=== PATIENT | male | born 1955 | race Caucasian/White ===

== ENCOUNTER → 2020-03-05 10:51 | Outpatient (CLI) | payer MEDICARE, SELFPAY | PROVIDERS: Visit Provider Internal Medicine Infectious Disease | DX: A40.1 Sepsis due to streptococcus, group B (principal); E11.42 Type 2 diabetes mellitus with diabetic polyneuropathy; Z95.0 Presence of cardiac pacemaker | CPT/HCPCS: 36415; 87040 ==

== ENCOUNTER → 2020-09-21 13:30 | Outpatient (CLI) | payer MEDICARE, SELFPAY ==
--- NOTE | 2020-09-21 | US_ITS ---
APPROVED REPORT Exam Type: Ankle to Brachial Index Distribution Collection Operator: RT Geovani(R) Indications Claudication: Bilaterally History of Smoking CAD Risk Factors Hypertension CAD Hyperlipidemia Obesity Cardiac Disease History of Smoking Pressures/Indices Right Indices Left Indices Brachial 145.00 mmHg Brachial 140.00 mmHg Low Thigh 145.00 mmHg 1.00 Low Thigh 148.00 mmHg 1.02 Calf 158.00 mmHg 1.09 Calf 161.00 mmHg 1.11 Ankle(PT) 163.00 mmHg 1.12 Ankle(PT) 161.00 mmHg 1.11 Ankle(DP) 151.00 mmHg 1.04 Ankle(DP) 156.00 mmHg 1.08 Digit 162.00 mmHg 1.12 Digit 147.00 mmHg 1.01 Findings RT RENEE=1.12 LT RENEE=1.11 RT TBI=1.12 LT TBI=1.01 Normal pulses Normal waveforms Normal appearing resting noninvasive lower extremity arterial study. Conclusion RT RENEE=1.12 LT RENEE=1.11 RT TBI=1.12 LT TBI=1.01 Normal pulses Normal waveforms Normal appearing resting noninvasive lower extremity arterial study. Electronically signed by : Paul Berrios MD 09/21/2020 16:59:26
== END ==
PROVIDERS: PCP Nurse Practitioner Family; Visit Provider Nurse Practitioner Family
DX: M79.661 Pain in right lower leg (principal); M79.662 Pain in left lower leg; R09.89 Other specified symptoms and signs involving the circulatory and respiratory systems
CPT/HCPCS: 93923

== ENCOUNTER 2021-09-05 12:48 | Emergency (ER) | payer OTHER, SELFPAY ==
[2021-09-05 12:48] VITALS: BP 125/87; PULSE 79; RESP 18; TEMP 36.6; O2SAT 98; BMI 31.1
--- NOTE | 2021-09-05 13:04 | PC.NURSE ---
ED MD at
--- NOTE | 2021-09-05 13:17 | CT_ITS ---
FINAL REPORT TECHNIQUE: Axial images through the abdomen and pelvis were performed without contrast. This study was performed with techniques to keep radiation doses as low as reasonably achievable, (ALARA). Individualized dose reduction techniques using automated exposure control or adjustment of mA and/or kV according to the patient's size were employed. CLINICAL HISTORY: Bl flank pain, difficulty urinating FINDINGS: Abdomen: There is scarring in the lung bases. The liver parenchyma is homogeneous. The gallbladder is absent. There are calcified granulomas in the spleen. There is nodularity of the adrenal glands. There are bilateral renal cysts measuring up to 3 cm on the left. The pancreas is unremarkable. Pelvis: The urinary bladder is contracted. The appendix is normal. There is no pelvic mass or inflammation. There are advanced hypertrophic changes of degenerative disc disease in the lower lumbar spine. IMPRESSION: Benign-appearing renal cysts. Reviewed, Interpreted and Dictated by Philip Britton MD Transcribed by David Levi Authenticated by Philip Britton MD on 09/05/2021 03:00:46 PM [facility]
--- NOTE | 2021-09-05 13:18 | XR_ITS ---
FINAL REPORT CLINICAL HISTORY: concern for CHF exacerbation COMPARISON: August 01, 2019 FINDINGS: The heart is mildly enlarged. There is a left subclavian pacemaker. The mediastinum is normal. There is scarring in the lung bases. There are no pleural effusions. There is no pneumothorax. There is no osseous abnormality. IMPRESSION: No acute cardiopulmonary process Reviewed, Interpreted and Dictated by Philip Britton MD Transcribed by David Levi Authenticated by Philip Britton MD on 09/05/2021 03:00:45 PM [facility]
--- NOTE | 2021-09-05 13:19 | HMH.EDGENADL ---
ED Disposition Clinical Impression: Hemorrhagic cystitis Disposition: Home, Self-Care Condition on Discharge: Good Prescriptions: Doxycycline Hyclate [Doxycycline 150mg Tablet] 100 mg PO BID 14 Days #28 tab Transmission Status: Pending to [facility] Phenazopyridine HCl [Pyridium 200mg Tablet] 200 mg PO TID 5 Days #15 tab Transmission Status: Pending to [facility] Referrals: Tod Negron MD [Primary Care Provider] - Shar Mena MD [Staff Physician] - - Critical Care Critical Care Time: No Attestation: On , the high probability of a clinically significant, sudden or life threatening deterioration of the following system(s) required my full and direct attention, intervention and personal management. The time I documented below is in addition to time spent performing reported procedures but includes the following listed in this critical care notation. Medical Decision Making - Medical Records Medical records reviewed: Yes: I reviewed the patient's medical records. - Los Inquiry Pt receiving controlled substance: No Vital Signs: 09/05/21 12:48 Temperature 97.8 F Temperature Source Oral Pulse Rate [Left Radial] 79 Respiratory Rate 18 Blood Pressure [Left Arm] 125/87 Blood Pressure Mean [Left Arm] 99 Blood Pressure Source [Left Arm] Automatic Cuff Blood Pressure Position [Left Arm] Sitting 02 Sat by Pulse Oximetry 98 Oxygen Delivery Method Room Air - Lab Data Lab Results 09/05/21 13:55: Urine Color Yellow, Urine Appearance Clear, Urine pH 6.0, Ur Specific Vale >= 1.030, Urine Protein 1+, Urine Glucose (UA) Negative, Urine Ketones Negative, Urine Blood 2+, Urine Nitrate Negative, Urine Bilirubin 1+ A, Urine Urobilinogen 0.2, Ur Leukocyte Esterase Negative, Urine RBC 10-20, Urine WBC 3-5, Ur Squamous Epith Cells 3-5, Urine Bacteria Trace 09/05/21 14:56: WBC 5.3, RBC 4.75, Hgb 10.0 L, Hct 34.2 L, MCV 72.0 L, MCH 21.1 L, MCHC 29.3 L, RDW 18.2 H, Plt Count 377, MPV 7.8, Neut % (Auto) 48.5, Lymph % (Auto) 35.2, [place] % (Auto) 11.5 H, Eos % (Auto) 3.8, Baso % (Auto) 0.9, Neut # (Auto) 2.6, Lymph # (Auto) 1.9, [place] # (Auto) 0.6, Eos # (Auto) 0.2, Baso # (Auto) 0.1 09/05/21 14:56: Sodium 138, Potassium 3.5, Chloride 104, Carbon Dioxide 27, Anion Gap 10.5, BUN 16, Creatinine 1.00, Estimated Creat Clear 109, Estimated GFR 75, Est GFR ( Amer) 91, Glucose 113 H, Calcium 7.9 L, Total Bilirubin 0.5, AST 43, ALT 30, Alkaline Phosphatase 99, Total Protein 7.5, Albumin 4.1, Globulin 3.4 H, Albumin/Globulin Ratio 1.2, Lipase 79 09/05/21 14:56: Lactate 1.0 09/05/21 14:56: PT 11.6, INR 1.03, APTT 30.2 09/05/21 14:56: NT-Pro-B Natriuret Pep 911 H Result diagrams: 09/05/21 14:56 09/05/21 14:56 Orders (Tests/Meds): ED MEDICATIONS Discontinued Medications Generic Name Dose Route Start Last Admin Trade Name Freq PRN Reason Stop Dose Admin Lactated Ringer's 1,000 mls @ 999 mls/hr 09/05/21 13:15 Lactated Ringer's 1000 Ml Bag IV 09/05/21 14:15 .[id number] [facility] - Radiology Data #1 Image(s): Chest Image Reviewed: Yes I reviewed the patient's radiology results, Yes I reviewed the patient's radiology image FINDINGS: The heart is mildly enlarged. There is a left subclavian pacemaker. The mediastinum is normal. There is scarring in the lung bases. There are no pleural effusions. There is no pneumothorax. There is no osseous abnormality. IMPRESSION: No acute cardiopulmonary process - CT Data CT Scan: Abdomen Time Received: 15:[address] Reviewed: Yes: I have reviewed the patient's CT results, I have viewed the radiologist's interpretation Findings Narrative: FINDINGS: Abdomen: There is scarring in the lung bases. The liver parenchyma is homogeneous. The gallbladder is absent. There are calcified granulomas in the spleen. There is nodularity of the adrenal glands. There are bilateral renal cysts measuring up to 3 cm on the left. The panc
[2021-09-05 13:58] LABS: Microscopic, Urine URINE MICROSCOPIC (MICROSCOPIC)
[2021-09-05 14:01] LABS: Appearance,Urine CLEAR (Clear); Blood, Urine 2+ (Negative); Color,Urine YELLOW (Yellow); Glucose,Urine (UA) Negative (Negative); Ketones,Urine Negative (Negative); Leukocyte Esterase,Urine Negative (Negative); Nitrate,Urine Negative (Negative); Protein,Urine 1+ (Negative); Specific Gravity, Urine >= 1.030 (1.005-1.030); Urobilinogen,Urine 0.2 EU/dl (0.2)
--- NOTE | 2021-09-05 14:04 | PC.NURSE ---
ED MD at for update on POC
[2021-09-05 14:10] LABS: Bilirubin,Urine 1+ (Negative)
[2021-09-05 14:19] LABS: Bacteria,Urine Trace /lpf
[2021-09-05 15:14] LABS: Basophils # 0.1 K/mm3 (0-0.2); Basophils % 0.9 % (0.1-2.0); Eosinophils # 0.2 K/mm3 (0.0-0.4); Eosinophils % 3.8 % (0.1-12.0); Hematocrit 34.2 % (42.0-52.0); Lymphocytes # 1.9 K/mm3 (0.7-4.5); Lymphocytes % 35.2 % (10-50); Mean Corpuscular HGB Conc 29.3 g/dL (31.8-35.4); Mean Corpuscular Hemoglobin 21.1 pg (27.0-31.2); Mean Platelet Volume 7.8 fl (7.4-10.4); Monocytes # 0.6 K/mm3 (0.1-1.0); Monocytes % 11.5 % (1.7-9.3); Neutrophils # 2.6 K/mm3 (1.8-7.8); Neutrophils % 48.5 % (37.0-80.0); Platelet Count 377 K/mm3 (142-424); Red Blood Count 4.75 M/mm3 (4.60-6.20); Red Cell Distribution Width 18.2 % (11.5-17.5); White Blood Count 5.3 K/mm3 (4.8-10.8)
[2021-09-05 15:23] LABS: Chloride 104 mmol/L (98-107); Potassium 3.5 mmoL/L (3.5-5.1); Sodium 138 mmol/L (136-145)
[2021-09-05 15:25] LABS: Alanine Aminotransferase 30 U/L (12-78); Alkaline Phosphatase 99 U/L (38-126); Aspartate Amino Transferase 43 U/L (17-59); Bilirubin,Total 0.5 mg/dl (0.2-1.3); Blood Urea Nitrogen 16 mg/dl (9-20); Creatinine Clearance Estimated 109 mL/min (50-200); Estimated Glomerular Filt Rate 75 ml/min (>60); GFR (African American) 91 ML/MIN (>60)
[2021-09-05 15:26] LABS: Albumin Level 4.1 g/dl (3.5-5.0); Albumin/Globulin Ratio 1.2 (1.1-1.8); Anion Gap 10.5 mEq/L (5-15); Calcium 7.9 mg/dl (8.4-10.2); Carbon Dioxide 27 mmol/L (22.0-30.0); Globulin 3.4 g/dL (1.3-3.2); Glucose 113 mg/dl (74-100); Lipase 79 U/L (23-300); Total Protein,Serum 7.5 g/dl (6.3-8.2)
[2021-09-05 15:29] LABS: Activated Partial Thrombo Time 30.2 seconds (22.8-30.6); INR 1.03 (0.9-1.1); Prothrombin Time 11.6 seconds (10.1-12.5)
[2021-09-05 15:35] LABS: NT Pro Brain Natriuretic Pep. 911 pg/mL (0-125)
--- NOTE | 2021-09-05 16:30 | PC.NURSE ---
ED MD at for update on POC
--- NOTE | 2021-09-05 16:58 | PC.NURSE ---
Paged Dr. Mena
--- NOTE | 2021-09-05 16:59 | PC.NURSE ---
NELLY EID on phone with Dr. Mena
[2021-09-05 17:42] VITALS: BP 121/80; PULSE 74; RESP 17; TEMP 36.6; O2SAT 99
== END 2021-09-05 17:43 | disposition home or self-care (01) ==
PROVIDERS: Emergency Provider Emergency Medicine; PCP Family Medicine
DX: N30.01 Acute cystitis with hematuria (principal); I13.0 Hypertensive heart and chronic kidney disease with heart failure and stage 1 through stage 4 chronic kidney disease, or unspecified chronic kidney disease; I50.9 Heart failure, unspecified; N18.9 Chronic kidney disease, unspecified; I48.91 Unspecified atrial fibrillation; E11.9 Type 2 diabetes mellitus without complications; M54.50 Low back pain, unspecified; N28.1 Cyst of kidney, acquired; J44.9 Chronic obstructive pulmonary disease, unspecified; Z79.01 Long term (current) use of anticoagulants; Z79.899 Other long term (current) drug therapy; Z88.0 Allergy status to penicillin; Z88.2 Allergy status to sulfonamides; Z88.6 Allergy status to analgesic agent; Z95.5 Presence of coronary angioplasty implant and graft; Z95.0 Presence of cardiac pacemaker; Z87.891 Personal history of nicotine dependence; Z82.49 Family history of ischemic heart disease and other diseases of the circulatory system; Z83.3 Family history of diabetes mellitus; Z83.438 Family history of other disorder of lipoprotein metabolism and other lipidemia; Z82.5 Family history of asthma and other chronic lower respiratory diseases
CPT/HCPCS: 71045; 74176; 80053; 81001; 83605; 83690; 83880; 85025; 85610; 85730; 96361; 96365; 99285

== ENCOUNTER 2021-09-06 16:33 | Emergency (ER) | payer OTHER, SELFPAY ==
[2021-09-06 16:34] VITALS: BP 120/70; PULSE 79; RESP 16; TEMP 36.4; O2SAT 98; BMI 31.1
[2021-09-06 17:13] LABS: Microscopic, Urine URINE MICROSCOPIC (MICROSCOPIC)
[2021-09-06 17:19] LABS: Basophils # 0.1 K/mm3 (0-0.2); Basophils % 0.8 % (0.1-2.0); Eosinophils # 0.2 K/mm3 (0.0-0.4); Eosinophils % 2.6 % (0.1-12.0); Hematocrit 33.1 % (42.0-52.0); Hemoglobin 9.8 g/dL (14.1-18.0); Lymphocytes # 2.1 K/mm3 (0.7-4.5); Lymphocytes % 23.2 % (10-50); Mean Corpuscular HGB Conc 29.6 g/dL (31.8-35.4); Mean Corpuscular Hemoglobin 21.6 pg (27.0-31.2); Mean Corpuscular Volume 72.9 fl (80-94); Mean Platelet Volume 10.6 fl (7.4-10.4); Monocytes # 0.8 K/mm3 (0.1-1.0); Monocytes % 8.7 % (1.7-9.3); Neutrophils % 64.8 % (37.0-80.0); Platelet Count 430 K/mm3 (142-424); Red Blood Count 4.55 M/mm3 (4.60-6.20); Red Cell Distribution Width 18.4 % (11.5-17.5); White Blood Count 9.2 K/mm3 (4.8-10.8)
[2021-09-06 17:27] LABS: Alanine Aminotransferase 33 U/L (12-78); Albumin Level 4.3 g/dl (3.5-5.0); Albumin/Globulin Ratio 1.3 (1.1-1.8); Alkaline Phosphatase 104 U/L (38-126); Anion Gap 14.7 mEq/L (5-15); Aspartate Amino Transferase 41 U/L (17-59); Bilirubin,Total 0.5 mg/dl (0.2-1.3); Blood Urea Nitrogen 17 mg/dl (9-20); Calcium 8.5 mg/dl (8.4-10.2); Carbon Dioxide 23 mmol/L (22.0-30.0); Chloride 104 mmol/L (98-107); Creatinine Clearance Estimated 91 mL/min (50-200); Estimated Glomerular Filt Rate 61 ml/min (>60); GFR (African American) 74 ML/MIN (>60); Globulin 3.4 g/dL (1.3-3.2); Glucose 112 mg/dl (74-100); Potassium 3.7 mmoL/L (3.5-5.1); Sodium 138 mmol/L (136-145); Total Protein,Serum 7.7 g/dl (6.3-8.2)
[2021-09-06 17:30] VITALS: BP 124/76; PULSE 80; RESP 17; O2SAT 98
[2021-09-06 17:30] LABS: Appearance,Urine SL CLOUDY (Clear); Blood, Urine 2+ (Negative); Color,Urine RED (Yellow); Glucose,Urine (UA) 1+ (Negative); Ketones,Urine TRACE (Negative); Leukocyte Esterase,Urine Negative (Negative); Nitrate,Urine POSITIVE (Negative); Protein,Urine 2+ (Negative); Urobilinogen,Urine >=8.0 EU/dl (0.2)
[2021-09-06 17:35] LABS: Bilirubin,Urine 2+ (Negative)
--- NOTE | 2021-09-06 17:40 | HMH.EDGENADL ---
ED Disposition Clinical Impression: Enteritis, Urinary urgency Disposition: Home, Self-Care Condition on Discharge: Good Additional Instructions: Collect a diarrhea sample using the provided supplies and return it along with the order form to ER registration at [facility] for testing. Obtain the results of this test from your primary care provider the next day. Continue taking Pyridium as prescribed. Tylenol with codeine as needed for pain. Follow-up with Dr. Mena in his office, call for appointment. Follow-up with Dr. Negron, call for appointment. Additional instructions for CONTROLLED SUBSTANCES: You have been prescribed a medication that is a controlled substance. Controlled substances include pain medications known as opiates and sedative nerve medications known as benzodiazepines. Tramadol, fioricet, and gabapentin are also controlled substances. Some common opiates include: Codeine (such as Tylenol #3) Hydrocodone (Vicodin, Lortab, Lorcet, Cowiche) Oxycodone (Percocet, Percodan, Oxycodone, Oxy IR) Some common benzodiazepines include: Diazepam (Valium) Lorazepam (Ativan) Alprazolam (Xanax) Clonazepam (Klonopin) Oxazepam (Serax) All of these controlled substances are highly addictive and frequently abused. Misuse can and frequently does lead to addiction as well as overdose and . Medication should be stored in a locked cabinet or other secure storage unit. Do not store the medication in a motor vehicle. Short term supplies, 3 days or less, are prescribed because of the highly addictive nature of the medication. Any of the controlled substance medication NOT taken should be disposed of properly and NOT SAVED. The recommended method of disposing of unused medications is: Place the medicines in a sealable plastic bag. If the medicine is a solid, crush it or add water to dissolve it. Add something undesirable (cat litter, coffee grounds, etc.) Dispose of sealed bag in household trash Do not flush or pour unused medicines down a sink or drain. Controlled substances should not be shared, given away or sold. Because of the addictive nature and frequent abuse, these medications are sometimes stolen. These medications should be kept in a safe place where they cannot be stolen. Do not keep them in your car or purse. Lost or stolen prescriptions for controlled substances WILL NOT BE REFILLED in this emergency department, regardless of whether a police report was filed. Prescriptions: Hydrocod/Acet 5/325 mg [Cow[place] 5/325mg tablet] 1 tab PO Q6HP PRN #10 tab PRN Reason: Pain Transmission Status: Received by [id number] Referrals: Tod Negron MD [Primary Care Provider] - Shar Mena MD [Staff Physician] - - Critical Care Critical Care Time: No Attestation: On 09/06/21, the high probability of a clinically significant, sudden or life threatening deterioration of the following system(s) required my full and direct attention, intervention and personal management. The time I documented below is in addition to time spent performing reported procedures but includes the following listed in this critical care notation. Medical Decision Making - Medical Records Medical records reviewed: Yes: I reviewed the patient's medical records. MR Comment: Reviewed emergency department note from yesterday and labs, CT report. - Los Inquiry Pt receiving controlled substance: Yes Los was queried for this patient: Yes Risks and benefits of using a controlled substance: were discussed with pt by me Vital Signs: 09/06/21 16:34 09/06/21 17:30 09/06/21 18:33 Temperature 97.6 F 98 F Temperature Source Oral Oral Pulse Rate 80 78 Pulse Rate [Radial] 79 Respiratory Rate 16 17 18 Blood Pressure 124/76 135/78 Blood Pressure [Right Radial Artery] 120/70 Blood Pressure Mean [Right Radial Artery] 86 Blood Pressure Position Sitting Blood Pressure Position [Right Radial Artery] S
[2021-09-06 17:46] LABS: Bacteria,Urine Trace /lpf; Squamous Epithelial Cell,Urine Occasional #/hpf (0-5); WBC,Urine Occasional #/hpf (0-3)
[2021-09-06 18:33] VITALS: BP 135/78; PULSE 78; RESP 18; TEMP 36.6; O2SAT 98
[2021-09-06 18:34] VITALS: BP 121/81; PULSE 68; RESP 17; O2SAT 98
== END 2021-09-06 18:51 | disposition home or self-care (01) ==
PROVIDERS: Emergency Provider Emergency Medicine; PCP Family Medicine
DX: K52.9 Noninfective gastroenteritis and colitis, unspecified (principal); I10 Essential (primary) hypertension; J44.9 Chronic obstructive pulmonary disease, unspecified; Z88.0 Allergy status to penicillin; Z88.2 Allergy status to sulfonamides; E11.9 Type 2 diabetes mellitus without complications; Z79.899 Other long term (current) drug therapy
CPT/HCPCS: 80053; 81001; 85025; 87086; 96360; 96365; 96375; 99284

== ENCOUNTER → 2021-09-24 11:54 | Outpatient (CLI) | payer MEDICARE, SELFPAY ==
[2021-09-24 13:56] LABS: Prostate Specific Ag Screen 0.4 ng/ml (0.0-4.0)
== END ==
PROVIDERS: PCP Family Medicine; Visit Provider Urology
DX: Z12.5 Encounter for screening for malignant neoplasm of prostate (principal)
CPT/HCPCS: 36415; G0103

== ENCOUNTER → 2021-10-22 09:11 | Outpatient (POV) | payer MEDICARE, SELFPAY | PROVIDERS: Visit Provider Dermatology | DX: Z00.00 Encounter for general adult medical examination without abnormal findings (principal) ==

== ENCOUNTER → 2021-10-31 09:00 | Outpatient (CLI) | payer MEDICARE, SELFPAY ==
--- NOTE | 2021-10-31 09:04 | US_ITS ---
FINAL REPORT TECHNIQUE: Limited sonographic imaging of the abdominal aorta was obtained. CLINICAL HISTORY: H/O NICOTINE DEPENDENCE-- obesity had recent ct abd FINDINGS: The abdominal aorta at measures up to 1.8 cm in diameter. IMPRESSION: Abdominal aorta measuring up to 1.8 cm in diameter. Reviewed, Interpreted and Dictated by Konrad Yi III, MD Transcribed by Bree Franz Authenticated by Konrad Yi III, MD on 10/31/2021 10:58:33 AM [facility]
== END ==
LOC: RAD 09:00
PROVIDERS: PCP Nurse Practitioner Family; Visit Provider Internal Medicine Adolescent Medicine
DX: I71.4 Abdominal aortic aneurysm, without rupture (principal); Z87.891 Personal history of nicotine dependence
CPT/HCPCS: 76705

== ENCOUNTER → 2021-11-27 12:25 | Outpatient (CLI) | payer MEDICARE, SELFPAY | PROVIDERS: PCP Internal Medicine Adolescent Medicine; Visit Provider Surgery | DX: Z01.812 Encounter for preprocedural laboratory examination (principal); Z20.822 Contact with and (suspected) exposure to COVID-19; Z13.810 Encounter for screening for upper gastrointestinal disorder; Z12.11 Encounter for screening for malignant neoplasm of colon | CPT/HCPCS: C9803; U0003; U0005 ==

== ENCOUNTER 2021-11-29 07:21 | Day surgery (SDC) | payer MEDICARE, SELFPAY ==
[2021-11-26 15:06] VITALS: BMI 46.0
[2021-11-29] VITALS (8 sets, daily range): BP systolic 97–136; BP diastolic 64–85; PULSE 76–86; RESP 16–18; TEMP 36.6; O2SAT 95–100
[2021-11-29 07:58] LABS: POC Glucose,Bedside 154 (70-110)
--- NOTE | 2021-11-29 08:28 | HMH.ANESCL ---
[facility] Anesthesia Checklist - Patient Identification Patient Identification: Arm Band - Structural Data Admitted From: Home Planned Operative Procedure/s: EGD/Colonoscopy Consent for Planned Operative Procedure(s) Verified: Yes - NPO Status Verified Time NPO: 01:00 (Prep) - Airway Assessment C-Spine Mobility Assessed: Yes TMJ Mobility Assessed: Yes Dentition: Poor Dentition - Neurological Assessment Level of Consciousness: Awake Hx Seizures: No Numbness or tingling in extremities: No - Anesthesia Plan Anesthesia Risk discussed: Yes Anesthesia Plan: Verified (Explained increased risk (including intubation, difficulty weaning off ventilator, )to patient. Patient agrees to proceed.) ASA Class: IV Anesthesia Type: MAC [facility] History I have reviewed the patient's past medical history: Yes Medical History: Reports:: Asthma, BPH, Chronic Obstructive Pulmonary Disease (COPD), Diabetes Mellitus Type 2, Hyperlipidemia, Hypertension, Internal Pacemaker, Valvular Heart Disease Denies:: Cancer, Diabetes Mellitus Type 1, MRSA, Seizures *Have you ever received a pneumonia vaccine?: No *Have you received a flu vaccine this season?: No Other Medical History: Reports: Arthritis, Sinus Problems (Sinus infection) Anesthesia experience/problems:: None Other Surgeries: Yes: No Previous Surgery, Angioplasty, Cardiac Catheterization, Cholecystectomy, Colonoscopy, Coronary Stent, Hernia Repair, Pacemaker, Other Amputation: No Fractures: No - *Social History Last grade of school completed: High school graduate Smoking Status: Former smoker Alcohol Intake: never Substance Use Type: denies use *Occupational Status:: retired Housing: house *Travel in the last 8 weeks: None Family Hx:: Diabetes, Hypertension, Hyperlipidemia, Asthma, Heart Attack
--- NOTE | 2021-11-29 08:38 | XR_ITS ---
FINAL REPORT CLINICAL HISTORY: preop for colonoscopy, non smoker COMPARISON: September 05, 2021 FINDINGS: A single portable view of the chest was obtained. A left subclavian pacemaker is present. There is cardiomegaly. The mediastinum is within normal limits. No acute pulmonary abnormality is identified. The bony thorax is intact. IMPRESSION: No active cardiopulmonary disease. Reviewed, Interpreted and Dictated by Konrad Yi III, MD Transcribed by Lizette Donohue Authenticated and [facility]
--- NOTE | 2021-11-29 10:20 | HMH.SCOPE ---
- Procedure: Date: 11/29/21 Patient Date of :: 1955 Procedure Performed:: EGD with biopsy Total colonoscopy to terminal ileum with polypectomy Indications:: Patient is a 66-year-old male with history of of diabetes, COPD, coronary artery disease with previous myocardial infarction, reported cardiomyopathy on Eliquis. BMI of 46. He has a history of coronary artery disease and had a couple of myocardial infarctions in 2003. He states that he has 13 stents and has had a couple of angioplasties. He has a transvenous pacemaker. Apparently he has on routine blood work found to have iron deficiency anemia. He states I have always had a nervous stomach . He was diagnosed with ulcers in the and was on Tagamet. It sounds as though he did undergo an EGD at that time. He states he has had a previous colonoscopy. He states that he believes he had [address] Colbert years ago. I saw no record of this but he did do an EGD in 2010 at which time he had a small hiatal hernia. He states that he had a colonoscopy about [address] Esteban Camejo at [facility], [place]. He denies any obvious bleeding other than occasional blood in his sinuses . He has had occasional black stool but does occasionally take Pepto-Bismol. Performing Provider:: Konrad Brannon MD Referring Provider:: Tod Barraza MD Sedation:: MAC sedation Procedure:: Patient was taken to endoscopy procedure room. He was positioned in lateral decubitus position. Adequate anesthesia sedation was achieved with titration propofol. Attention was first turned to upper endoscopy. Olympus endoscope was inserted via the oropharynx. Esophagus was cannulated. Overall esophagus appeared normal. Gastroesophageal junction was encountered at approximately 46 cm from the incisors. Stomach was cannulated and insufflated. There was some minor to moderate gastropathy and nonerosive gastritis. Gastric antral mucosal biopsy was obtained for CLOtest for H. pylori. Retroflexion revealed no evidence of any appreciable hiatal hernia. There was a probable fundic gland polyp in the proximal fundus which was ultimately biopsied using cold biopsy forceps. Pylorus was traversed. Duodenum appeared unremarkable. Gastric biopsy was obtained for histopathologic analysis. Using retroflexion biopsy was obtained of the presumed fundic gland polyp. Biopsy was obtained of the gastroesophageal junction. Overall no obvious etiology on upper endoscopy for iron deficiency anemia. Extension was turned to colonoscopy. Variable stiffness Olympus colonoscope was inserted via the anus. He did have some redundancy of the sigmoid colon. Ultimately colonoscope was advanced to the cecum. Ileocecal valve and appendiceal orifice were clearly identified. Colonoscope was advanced a short distance into the terminal ileum which appeared grossly normal. Colonoscope was slowly withdrawn through the colon with careful surveillance. There was a small polyp at the splenic flexure removed with cold cutting snare. Due to minor submucosal hematoma couple of hemoclips were deployed particularly with his anticoagulation status. In the descending colon there was a small polyp removed with cold snare. Once again Hemoclip was deployed. There was some sigmoid diverticulosis. Sigmoid colon there was a tiny polyp removed with cold snare. This seemed to be lodged within the colonoscope and was initially unable to be retrieved. Colonoscope scope was repeatedly reinserted and withdrawn to ensure that it was not within the colon. It was not seen. Retroflexion within the rectum revealed no evidence of any pathologic internal hemorrhoids. Colonoscope was withdrawn. Overall there is no etiology to explain iron deficiency anemia on colonoscopy. Findings:: Gastroesophageal junction at 46 cm Mild to moderate nonerosive gastropathy with gastritis Presumed fundic gland polyp Tiny splenic flexure polyp Descending colon dexter
== END 2021-11-29 11:25 | disposition home or self-care (01) ==
PROVIDERS: PCP Internal Medicine Adolescent Medicine; Visit Provider Surgery
PROC: 0DJ08ZZ Inspection of Upper Intestinal Tract, Via Natural or Artificial Opening Endoscopic (ICD-10-PCS; CPT 43235; principal; 2021-11-29 08:30)
DX: D50.9 Iron deficiency anemia, unspecified (principal); E11.9 Type 2 diabetes mellitus without complications; J44.9 Chronic obstructive pulmonary disease, unspecified; E78.5 Hyperlipidemia, unspecified; I10 Essential (primary) hypertension; Z95.0 Presence of cardiac pacemaker; Z88.0 Allergy status to penicillin; Z79.84 Long term (current) use of oral hypoglycemic drugs
CPT/HCPCS: 43239; 45385; 71045; 82962; 87339; 88305; J2704

== ENCOUNTER 2022-08-06 08:00 | Outpatient (RCR) | payer MEDICARE, SELFPAY ==
--- NOTE | 2022-07-28 09:01 | HMH.PTOPWND ---
Rehab Outpt Wound Evaluation Rehab OP Wound Evaluation Start: 07/28/22 07:59 Freq: Status: Active Protocol: Document 07/28/22 08:45 ARABELLA (Rec: 07/28/22 09:01 PHORLIBERTY [id number]) E-signed By Johnathan Mejia, PT Subjective/History History History This is the initial PT eval for Myron Siddiqui 67 yowm who presents with c/o B LE edema and significant pain, worse at night, from knees distally. He reports pain is worse in R LE than L and often prevents him from sleeping. He reports walking and moving help to decrease his pain. He presents this am with significant palpation tenderness in B LE gaiter areas and minimally pitting edema. He has hx of DM -II with peripheral neuropathy , [place], CAD with 13 stents, pacemaker, COPD. Prior RENEE performed 09/21/20 shows R RENEE = 1.12 and TBI= 1.12, L RENEE= 1 .11 and TBI= 1.01. Subjective Subjective He reports current pain 0/10, at worst 10/10 (usually at night). He presents with 1+ pitting edema to B ankle area this am, 3/4 TTP noted to B gaiter areas. Significant decrease in sensation with 10g monofilament testing to B LE from mid-calf distally. Lymphedema Eval Classification of Lymphedema Secondary Lymphedema Yes Stemmer's sign Stemmer's Sign no Skin Changes Dry Skin Yes Taut, Shiny Skin Yes Redness Yes Brittle Uneven Nails Yes Discoloration of Skin Yes Other Changes Yes Pain Scale Pain Scale (0-10) 10 Affected Extremities Areas Affected by Lymphedema/Edema Right Lower Extremity,Left Lower Extremity Manual Lymphatic Drainage Treatment Area MLD Treatment Area Right Lower Extremity,Left Lower Extremity Wound Problems/Impairments Impairments Problems/Impairmments Palpation Tenderness,Impaired Endurance,Impaired Sitting, Impaired Recreational
== END 2022-08-06 08:05 | disposition home or self-care (01) ==
LOC: PT 08:00
PROVIDERS: PCP Internal Medicine Adolescent Medicine; Visit Provider Internal Medicine Adolescent Medicine
DX: I89.0 Lymphedema, not elsewhere classified (principal); R60.0 Localized edema
CPT/HCPCS: 97163

== ENCOUNTER → 2023-04-23 16:31 | Outpatient (CLI) | payer MEDICARE, SELFPAY | PROVIDERS: PCP Internal Medicine Adolescent Medicine; Visit Provider Nurse Practitioner Family | DX: S91.109A Unspecified open wound of unspecified toe(s) without damage to nail, initial encounter (principal); B96.89 Other specified bacterial agents as the cause of diseases classified elsewhere | CPT/HCPCS: 87070; 87205 ==

== ENCOUNTER 2023-05-13 19:50 | Emergency (ER) | payer MEDICARE, SELFPAY ==
[2023-05-13 19:50] VITALS: BP 167/89; PULSE 78; RESP 16; TEMP 36.7; O2SAT 95; BMI 44.4
--- NOTE | 2023-05-13 20:00 | CT_ITS ---
PROCEDURE INFORMATION: Exam: CTA Neck With Contrast Exam date and time: 05/13/2023 8:43 PM Age: 68 years old Clinical indication: Pain; Headache; Additional info: New L headache and neck pain TECHNIQUE: Imaging protocol: Computed tomographic angiography of the neck with contrast. Exam focused on the cervical segments of the vasculature. 3D rendering (Not supervised by radiologist): MIP and/or 3D reconstructed images were created by the technologist. Radiation optimization: All CT scans at this facility use at least one of these dose optimization techniques: automated exposure control; mA and/or kV adjustment per patient size (includes targeted exams where dose is matched to clinical indication); or iterative reconstruction. Contrast material: ISOVUE; Contrast volume: 100 ml; Contrast route: INTRAVENOUS (IV); REPORTING DATA: Count of CT and Cardiac NM exams in prior 12 months: This patient has received 0 known CTs and 0 known cardiac nuclear medicine studies in the 12 months prior to the current study. COMPARISON: CT ANGIO HEAD 05/13/2023 8:43 PM FINDINGS: Right common carotid artery: No stenosis. No dissection or occlusion. Right internal carotid artery: Calcified atheromatous changes causing 30% stenosis. No dissection or occlusion. Right external carotid artery: No occlusion or stenosis of the origin. Left common carotid artery: No stenosis. No dissection or occlusion. Left internal carotid artery: Calcified atheromatous changes causing 40% stenosis. No dissection or occlusion. Left external carotid artery: No occlusion or stenosis of the origin. Right vertebral artery: Congenitally hypoplastic. No stenosis. No dissection or occlusion. Left vertebral artery: No stenosis. No dissection or occlusion. Soft tissues: Normal. No significant soft tissue swelling. Bones/joints: No acute fracture. IMPRESSION: Calcified atheromatous changes at the carotid bifurcations causing mild stenosis bilaterally. REFERENCES: NASCET CRITERIA. The degree of stenosis in the cervical segment of the internal carotid artery is based on NASCET criteria. Normal is no stenosis. Mild is less than 50% stenosis. Moderate is 50-69% stenosis. Severe is 70% to 99% stenosis. Total occlusion is no detectable patent lumen.
--- NOTE | 2023-05-13 20:00 | CT_ITS ---
PROCEDURE INFORMATION: Exam: CT Head Without Contrast Exam date and time: 05/13/2023 8:43 PM Age: 68 years old Clinical indication: Pain; Headache; Additional info: New L headache and neck pain TECHNIQUE: Imaging protocol: Computed tomography of the head without contrast. Radiation optimization: All CT scans at this facility use at least one of these dose optimization techniques: automated exposure control; mA and/or kV adjustment per patient size (includes targeted exams where dose is matched to clinical indication); or iterative reconstruction. REPORTING DATA: Count of CT and Cardiac NM exams in prior 12 months: This patient has received 0 known CTs and 0 known cardiac nuclear medicine studies in the 12 months prior to the current study. COMPARISON: No relevant prior studies available. FINDINGS: Brain: Mild atrophy. No intracranial hemorrhage. No mass. No definite edema. Cerebral ventricles: No hydrocephalus. Paranasal sinuses: No acute sinusitis. Mastoid air cells: No significant effusion. Orbital cavities: Unremarkable as visualized. Bones/joints: No acute fracture. Soft tissues: Unremarkable. IMPRESSION: No definite acute intracranial abnormality. If symptoms persist, consider MRI.
--- NOTE | 2023-05-13 20:00 | CT_ITS ---
PROCEDURE INFORMATION: Exam: CTA Head With Contrast, Arteriography Exam date and time: 05/13/2023 8:43 PM Age: 68 years old Clinical indication: Pain; Headache; Additional info: New L headache and neck pain TECHNIQUE: Imaging protocol: Computed tomographic angiography of the head with contrast. Exam focused on the arteries. 3D rendering (Not supervised by radiologist): MIP and/or 3D reconstructed images were created by the technologist. Radiation optimization: All CT scans at this facility use at least one of these dose optimization techniques: automated exposure control; mA and/or kV adjustment per patient size (includes targeted exams where dose is matched to clinical indication); or iterative reconstruction. Contrast material: ISOVUE; Contrast volume: 100 ml; Contrast route: INTRAVENOUS (IV); REPORTING DATA: Count of CT and Cardiac NM exams in prior 12 months: This patient has received 0 known CTs and 0 known cardiac nuclear medicine studies in the 12 months prior to the current study. COMPARISON: CT HEAD/BRAIN WO CON 05/13/2023 8:43 PM FINDINGS: ANTERIOR CIRCULATION: Right internal carotid artery: Intracranial segment is patent with no significant stenosis. No aneurysm. Right middle cerebral artery: No occlusion or significant stenosis. No aneurysm. Right anterior cerebral artery: No occlusion or significant stenosis. No aneurysm. Left internal carotid artery: Intracranial segment is patent with no significant stenosis. No aneurysm. Left middle cerebral artery: No occlusion or significant stenosis. No aneurysm. Left anterior cerebral artery: No occlusion or significant stenosis. No aneurysm. POSTERIOR CIRCULATION: Right vertebral artery: Congenitally hypoplastic. No occlusion or significant stenosis. No aneurysm. Left vertebral artery: No occlusion or significant stenosis. No aneurysm. Basilar artery: No occlusion or significant stenosis. No aneurysm. Right posterior cerebral artery: No occlusion or significant stenosis. No aneurysm. Left posterior cerebral artery: No occlusion or significant stenosis. No aneurysm. Brain: No definite mass, mass effect, or midline shift. Cerebral ventricles: No ventriculomegaly. Bones/joints: Unremarkable. No acute fracture. Soft tissues: Unremarkable. IMPRESSION: No large vessel stenosis or occlusion.
--- NOTE | 2023-05-13 20:03 | HMH.EDGENADL ---
Discharge Plan Disposition Patient Disposition: Home, Self-Care Prescriptions Prescriptions: New prednisone 20 mg tablet 60 mg PO DAILY 7 Days Qty: 21 0RF No Action furosemide 80 mg tablet 80 mg PO DAILY azelastine 137 mcg (0.1 %) aerosol,spray 2 spray NS DAILY Qty: 30 3RF Rx Instructions: administer into each nostril fluticasone propionate [Flonase Allergy Relief] 50 mcg/actuation spray,suspension 2 spray NS DAILY Qty: 16 3RF Rx Instructions: administer into each nostril fluocinolone acetonide oil [DermOtic Oil] 0.01 % drops 5 drp OT BID 10 Days Qty: 20 0RF lisinopril 20 mg tablet PO amlodipine 10 mg tablet PO triamcinolone acetonide 0.1 % ointment topical nitroglycerin 0.4 mg tablet, sublingual buccal ciclopirox 8 % solution 1 applic TP DAILY 90 Days Qty: 6.6 3RF Rx Instructions: apply over previous coat; remove with alcohol every 7 days and file down nail Eliquis 5 mg tablet 10 mg PO BID gabapentin 300 mg capsule 300 mg PO DAILY metformin 500 MG tablet 500 mg PO BID amlodipine 5 MG tablet 5 mg PO DAILY omeprazole 40 MG capsule,delayed release(DR/EC) 40 mg PO DAILY isosorbide dinitrate 30 MG tablet 60 mg PO BID metoprolol succinate 50 MG tablet 50 mg PO BID montelukast 10 MG tablet 10 mg PO PM PRN (Reason: ALLERGIES) mometasone-formoterol 13 GM HFA aerosol inhaler 2 puffs IH BID pravastatin 40 MG tablet 40 mg PO Referrals Follow up/Referrals: Tod Barraza MD [Primary Care Provider] - See instructions Activity Restrictions/Add. Instructions Additional Instructions/Restrictions: At this time is felt you are safe to be discharged home. If new or worsening symptoms please do not hesitate to return the emergency department. Please take your medications as prescribed and call Dr. Kovacs's office tomorrow to schedule follow-up in 1 week for continued evaluation. Clinical Impressions Clinical Impression: Headache, Elevated erythrocyte sedimentation rate Discharge ED Provider: Miguel Dawknis General Adult HPI General Chief complaint: Headache Stated complaint: Weakness Time Seen by Provider: 05/13/23 19:53 Mode of Arrival: Ambulatory Source of Information: Patient Limitations: No Limitations Description of Symptoms (Recalled from ER Triage Doc. by RN): Patient reports left sided headache that has been ongoing for 1 month. Patient reports that he has radiating pain to left arm, blurry vision and jaw pain with the headache as well. Up until today he has been able to treat the headache with tylenol and get relief. Today he had a dose of tylenol, unknown dose, at 6pm and his pain remains 10/10. History of Present Illness HPI narrative: Patient is a 68-year-old male with past medical history of [id number] diabetes, pacemaker placement on anticoagulation who presents emergency department for evaluation of headache. Onset was subacute, over the last 4 weeks, severe, left-sided, intermittent pain radiating down the left neck and left arm with associated intermittent blurry vision and jaw pain associated with the headache. No other acute complaints at this time. Related Data Home Medications Medication Instructions Recorded Confirmed amlodipine 5 mg tablet 5 mg PO DAILY High blood pressure 08/01/19 04/23/23 isosorbide dinitrate 30 mg tablet 60 mg PO BID . 08/01/19 04/23/23 metformin 500 mg tablet 500 mg PO BID Diabetes 08/01/19 04/23/23 metoprolol succinate 50 mg 50 mg PO BID High blood pressure 08/01/19 04/23/23 tablet,extended release 24 hr mometasone-formoterol HFA 200 2 puffs inhalation BID Asthma 08/01/19 04/23/23 mcg-5 mcg/actuation aerosol inhaler montelukast 10 mg tablet 10 mg PO PM PRN ALLERGIES 08/01/19 04/23/23 omeprazole 40 mg capsule,delayed 40 mg PO DAILY GERD 08/01/19 04/23/23 release pravastatin 40 mg tablet 40 mg
[2023-05-13 20:13] VITALS: BP 140/85; PULSE 72; RESP 18; O2SAT 95
[2023-05-13 20:18] LABS: Basophils # 0.1 K/mm3 (0-0.2); Basophils % 0.5 % (0.1-2.0); Eosinophils # 0.2 K/mm3 (0.0-0.4); Eosinophils % 1.9 % (0.1-12.0); Hematocrit 43.8 % (42.0-52.0); Hemoglobin 14.7 g/dL (14.1-18.0); Lymphocytes # 2.8 K/mm3 (0.7-4.5); Lymphocytes % 26.3 % (10-50); Mean Corpuscular HGB Conc 33.6 g/dL (31.8-35.4); Mean Corpuscular Hemoglobin 28.4 pg (27.0-31.2); Mean Corpuscular Volume 84.5 fl (80-94); Mean Platelet Volume 7.8 fl (7.4-10.4); Monocytes # 0.8 K/mm3 (0.1-1.0); Monocytes % 7.5 % (1.7-9.3); Neutrophils # 6.7 K/mm3 (1.8-7.8); Neutrophils % 63.8 % (37.0-80.0); Platelet Count 283 K/mm3 (142-424); Red Blood Count 5.18 M/mm3 (4.60-6.20); Red Cell Distribution Width 17.3 % (11.5-17.5); White Blood Count 10.5 K/mm3 (4.8-10.8)
[2023-05-13 20:29] LABS: Chloride 100 mmol/L (98-107); Potassium 3.5 mmoL/L (3.5-5.1); Sodium 139 mmol/L (136-145)
[2023-05-13 20:31] VITALS: BP 153/80; PULSE 75; RESP 17; O2SAT 96
[2023-05-13 20:31] LABS: Alanine Aminotransferase 33 U/L (12-78); Aspartate Amino Transferase 36 U/L (17-59); Blood Urea Nitrogen 16 mg/dl (9-20); Creatinine Clearance Estimated 79 mL/min (50-200); Estimated Glomerular Filt Rate 75 ml/min (>60); GFR (African American) 90 ML/MIN (>60)
[2023-05-13 20:32] LABS: Albumin Level 4.4 g/dl (3.5-5.0); Albumin/Globulin Ratio 1.2 (1.1-1.8); Alkaline Phosphatase 121 U/L (38-126); Anion Gap 11.5 mEq/L (5-15); Bilirubin,Total 0.4 mg/dl (0.2-1.3); Carbon Dioxide 31 mmol/L (22.0-30.0); Globulin 3.7 g/dL (1.3-3.2); Glucose 146 mg/dl (74-100); Total Protein,Serum 8.1 g/dl (6.3-8.2)
[2023-05-13 21:03] LABS: Erythrocyte Sedimentation Rate 48 mm/hr (0-20)
--- NOTE | 2023-05-13 21:34 | PC.NURSE ---
Visual acuity performed without correction Both - 20/40 Right - 20/40 Left - 20/40
[2023-05-13 21:54] VITALS: BP 147/79; PULSE 71; RESP 18; TEMP 36.7; O2SAT 96
== END 2023-05-13 21:55 | disposition home or self-care (01) ==
PROVIDERS: Emergency Provider Emergency Medicine; PCP Internal Medicine Adolescent Medicine
DX: R51.9 Headache, unspecified (principal); R70.0 Elevated erythrocyte sedimentation rate; R68.84 Jaw pain; E11.9 Type 2 diabetes mellitus without complications; J45.909 Unspecified asthma, uncomplicated; Z79.84 Long term (current) use of oral hypoglycemic drugs; Z95.0 Presence of cardiac pacemaker; Z79.01 Long term (current) use of anticoagulants
CPT/HCPCS: 70450; 70496; 70498; 80053; 85025; 85651; 96374; 96375; 99285; J0131; Q9967

== ENCOUNTER → 2023-05-26 11:52 | Outpatient (CLI) | payer MEDICARE, SELFPAY ==
--- NOTE | 2023-05-26 11:57 | XR_ITS ---
FINAL REPORT TECHNIQUE: Cervical spine 5 views CLINICAL HISTORY: CERVICALGIA COMPARISON: None FINDINGS: CERVICAL SPINE: Multiple views of the cervical spine failed to reveal any evidence of fracture or dislocation. No vertebral anomalies are identified. The prevertebral soft tissues are unremarkable in appearance. Note is made of a pacemaker. The disc space levels are unremarkable. IMPRESSION: No acute bony abnormality identified. Reviewed, Interpreted and Dictated by Philip Britton MD Transcribed by Estela Laguerre Authenticated and [facility]
[2023-05-26 14:00] LABS: Troponin I < 0.01 ng/ml (0.00-0.034)
== END ==
LOC: RAD 11:53
PROVIDERS: PCP Internal Medicine Adolescent Medicine; Visit Provider Nurse Practitioner Family
DX: M54.2 Cervicalgia (principal); R07.89 Other chest pain
CPT/HCPCS: 36415; 72050; 84484

== ENCOUNTER 2023-10-02 08:04 | Outpatient (CLI) | payer MEDICARE, SELFPAY ==
--- NOTE | 2023-10-02 08:10 | CT_ITS ---
FINAL REPORT TECHNIQUE: After the administration of oral and intravenous contrast, axial images were obtained through the abdomen and pelvis by computed tomography. The study was performed with techniques to keep radiation dose as low as reasonably achievable, (ALARA). Individual dose reduction techniques using automated exposure control or adjustment of mA and/or kV according to the patient's size were employed. CLINICAL HISTORY: HEMATURIA COMPARISON: 09/05/2021 FINDINGS: Abdomen: The lung bases are clear. There is streak artifact from pacer leads. The liver parenchyma is homogeneous. The gallbladder is absent. There are calcified granulomas in the spleen. The pancreas is unremarkable. There is stable nodularity of the adrenal glands. There are multiple well-circumscribed cystic structures in both kidneys measuring up to 3.1 cm on the left and consistent with benign cysts. The aorta is normal in caliber. There is no free fluid or adenopathy. Pelvis: The appendix is normal. There is an 11 mm focus of increased attenuation in the left posterolateral urinary bladder concerning for small bladder mass and well-seen on images 108 and 109 of series 2. This was not clearly seen on the previous exam. There is no free fluid or adenopathy. There are advanced hypertrophic changes of degenerative disc disease in the lower lumbar spine. IMPRESSION: Bladder mass posterolateral urinary bladder. Cannot exclude neoplasm. Recommend urologic evaluation. Benign-appearing cysts in bilateral kidneys. Reviewed, Interpreted and Dictated by Philip Britton MD Transcribed by Lyric Powell Authenticated and [facility]
[2023-10-02 08:49] LABS: Blood Urea Nitrogen 22 mg/dl (9-20); Estimated Glomerular Filt Rate 60 ml/min (>60); GFR (African American) 73 ML/MIN (>60)
[2023-10-02] MEDS: IOPAMIDOL-370 (76%);100ML BOTTLE 75 ML IV (09:17)
[2023-10-02] MEDS: SODIUM CHLORIDE 0.9% 10ML SYR (RAD ONLY) 10 ML IV (09:17)
== END 2023-10-02 23:59 | disposition home or self-care (01) ==
LOC: RAD 08:05
PROVIDERS: PCP Internal Medicine Adolescent Medicine; Visit Provider Internal Medicine Adolescent Medicine
DX: R31.0 Gross hematuria (principal)
CPT/HCPCS: 36415; 74177; 82565; 84520; Q9967

== ENCOUNTER 2023-10-30 09:51 | Day surgery (SDC) | payer MEDICARE, SELFPAY ==
[2023-10-29 11:05] VITALS: BMI 42.5
[2023-10-30 10:36] VITALS: BP 127/57; PULSE 68; RESP 18; TEMP 36; O2SAT 97
[2023-10-30] MEDS: LIDOCAINE 2% UROJET 10ML 10 ML (11:55)
--- NOTE | 2023-10-30 12:10 | HMH.PROCNOTE ---
[facility] Procedure Note Date: 10/30/23 Time: 12:11 Procedure Note:: Preop diagnosis: Hematuria Postop diagnosis: Bladder cancer Operation cystoscopy: The patient was brought to the treatment room. He was prepped and draped in the usual fashion for cystoscopy. His urethra was anesthetized with 2% Xylocaine jelly. The patient underwent flexible cystoscopy. In the pendulous urethra he has a 16 fr stricture area that the scope passed with ease. The posterior urethra is somewhat ragged in appearance. He has grade 1 obstruction. The patient's bladder is smooth without trabeculation throughout. 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 The lesion appears free of the right UO. He tolerated the procedure well. He will need TUR bladder tumor.
[2023-10-30 12:15] VITALS: BP 107/62; PULSE 65; RESP 18; TEMP 36.4; O2SAT 96
[2023-10-31 15:03] LABS: POC Glucose,Bedside 115 (70-110)
== END 2023-10-30 12:08 | disposition home or self-care (01) ==
LOC: OUTP 09:53
PROVIDERS: PCP Internal Medicine Adolescent Medicine; Visit Provider Urology
PROC: 0TJB8ZZ Inspection of Bladder, Via Natural or Artificial Opening Endoscopic (ICD-10-PCS; CPT 52000; principal; 2023-10-30 10:45)
DX: C67.9 Malignant neoplasm of bladder, unspecified (principal); N36.8 Other specified disorders of urethra; E11.9 Type 2 diabetes mellitus without complications
CPT/HCPCS: 52000; 82962

== ENCOUNTER 2024-08-16 09:40 | Observation (INO) | payer MEDICARE, SELFPAY ==
[2024-08-16] VITALS (22 sets, daily range): BP systolic 76–106; BP diastolic 44–62; PULSE 61–85; RESP 14–22; TEMP 36.5–36.9; O2SAT 94–99; BMI 40.1; BMI 39.2
--- NOTE | 2024-08-16 09:37 | PC.NURSE ---
Took blood sugar, it was 122.
--- NOTE | 2024-08-16 09:38 | ECG_ITS ---
APPROVED REPORT Exam: Resting ECG HR:63 bpm ECG Measurements Heart Rate 63 AXES QRSd 109 QRS 63 QT 417 T 268 QTc 425 Conclusion Underlying A-fib V-paced rhythm ST depressions and T wave inversions in anterior and lateral leads new from previous Electronically signed by : CAT MOYA, 08/16/2024 14:46:16
--- NOTE | 2024-08-16 09:54 | XR_ITS ---
FINAL REPORT CLINICAL HISTORY: syncope COMPARISON: 11/29/2021 FINDINGS: A single frontal view of the chest was obtained. No acute pulmonary opacity is present. There is no evidence of effusion or pneumothorax. Mediastinum is unremarkable. Left-sided pacer is again noted with leads radiographically intact. Heart size is normal. IMPRESSION: No acute abnormality. Reviewed, Interpreted and Dictated by Holden Chaves MD Transcribed by Lyric Powell Authenticated and [facility]
[2024-08-16 10:03] LABS: Basophils % 0.5 % (0.1-2.0); Eosinophils # 0.1 K/mm3 (0.0-0.4); Eosinophils % 1.1 % (0.1-12.0); Hematocrit 41.2 % (42.0-52.0); Hemoglobin 14.1 g/dL (14.1-18.0); Lymphocytes # 2.4 K/mm3 (0.7-4.5); Lymphocytes % 31.6 % (10-50); Mean Corpuscular HGB Conc 34.2 g/dL (31.8-35.4); Mean Corpuscular Volume 90.5 fl (80-94); Mean Platelet Volume 9.2 fl (7.4-10.4); Monocytes # 0.9 K/mm3 (0.1-1.0); Monocytes % 11.3 % (1.7-9.3); Neutrophils # 4.1 K/mm3 (1.8-7.8); Neutrophils % 54.6 % (37.0-80.0); Platelet Count 312 K/mm3 (142-424); Red Blood Count 4.55 M/mm3 (4.60-6.20); Red Cell Distribution Width 12.9 % (11.5-17.5); White Blood Count 7.5 K/mm3 (4.8-10.8)
[2024-08-16 10:09] LABS: INR 0.97 (0.9-1.1); Potassium 5.8 mmoL/L (3.5-5.1); Prothrombin Time 10.7 seconds (9.2-12.1)
[2024-08-16 10:11] LABS: Lactate Venous 2.8 mmol/L (0.4-2.0); VBG Base Excess -6.4 mmol/L (-2.4-2.3); VBG HCO3 19.9 mmol/L (23-30); VBG Oxygen Saturation 82.9 % (50-70); VBG PH 7.31 mmol/L (7.31-7.41); VBG PO2 52.1 mmol/L (28-40); VBG Total CO2 21.2 mmol/L (23-27)
[2024-08-16 10:11] LABS: Alanine Aminotransferase 27 U/L (12-78); Aspartate Amino Transferase 37 U/L (17-59); Blood Urea Nitrogen 42 mg/dl (9-20); Carbon Dioxide 22 mmol/L (22.0-30.0); Estimated Glomerular Filt Rate 43 ml/min (>60); GFR (African American) 52 ML/MIN (>60); Total Protein,Serum 8.1 g/dl (6.3-8.2)
[2024-08-16 10:12] LABS: Alkaline Phosphatase 47 U/L (38-126); Bilirubin,Total 0.9 mg/dl (0.2-1.3); Calcium 9.6 mg/dl (8.4-10.2); Glucose 121 mg/dl (74-100); Magnesium 1.6 mg/dl (1.6-2.3)
[2024-08-16] MEDS: ASPIRIN 81MG CHEWABLE TABLET 324 MG PO (10:14)
[2024-08-16 10:16] LABS: Creatinine Clearance Estimated 84 mL/min (50-200)
--- NOTE | 2024-08-16 10:19 | CT_ITS ---
FINAL REPORT TECHNIQUE: Noncontrast exam This study was performed with techniques to keep radiation doses as low as reasonably achievable, (ALARA). Individualized dose reduction techniques using automated exposure control or adjustment of mA and/or kV according to the patient''s size were employed. CLINICAL HISTORY: fall on eliquis COMPARISON: 05/13/2023 FINDINGS: There is mild atrophy. No cortical edema is present. There is no mass or hemorrhage. Ventricles are normal. Bone windows show no skull fracture or obvious obstructive lesion. There is mild left maxillary sinusitis. IMPRESSION: 1. No acute intracranial abnormality or obvious mass. Reviewed, Interpreted and Dictated by Holden Chaves MD Transcribed by Chel Pressley Authenticated and [facility]
--- NOTE | 2024-08-16 10:19 | CT_ITS ---
FINAL REPORT TECHNIQUE: Thin section axial CT with sagittal reconstruction without contrast This study was performed with techniques to keep radiation doses as low as reasonably achievable, (ALARA). Individualized dose reduction techniques using automated exposure control or adjustment of mA and/or kV according to the patient''s size were employed. CLINICAL HISTORY: syncopal episode COMPARISON: 05/13/2023 FINDINGS: No fracture is seen. Alignment is normal. No obvious bony spinal canal stenosis is present. There is mild diffuse degenerative disc disease. IMPRESSION: No fracture or malalignment Reviewed, Interpreted and Dictated by Holden Chaves MD Transcribed by Chel Pressley Authenticated and [facility]
--- NOTE | 2024-08-16 10:19 | ED_ITS ---
Discharge Plan Disposition Patient Disposition: Admitted Chief Complaint: Syncope Prescriptions Prescriptions: No Action furosemide 80 mg tablet 80 mg PO DAILY fluticasone propionate [Flonase Allergy Relief] 50 mcg/actuation spray,suspension 2 spray NS DAILY Qty: 16 3RF Rx Instructions: administer into each nostril amlodipine 10 mg tablet 10 mg PO DAILY nitroglycerin 0.4 mg tablet, sublingual 0.4 mg buccal DIRECTED PRN (Reason: Chest Pain) lisinopril 40 mg tablet 40 mg PO DAILY metoprolol tartrate 25 mg tablet 25 mg PO BID Eliquis 5 mg tablet 10 mg PO BID clopidogrel [Plavix] 75 mg tablet 75 mg PO DAILY metformin 500 MG tablet 500 mg PO BID omeprazole 40 MG capsule,delayed release(DR/EC) 40 mg PO DAILY isosorbide dinitrate 30 MG tablet 60 mg PO BID pravastatin 40 MG tablet 40 mg PO HS spironolactone [Aldactone] 50 mg Tablet 50 mg PO BID levofloxacin 500 mg tablet 500 mg PO DAILY Referrals Follow up/Referrals: Tod Barraza MD [Primary Care Provider] - See instructions Clinical Impressions Clinical Impression: SHREYA (acute kidney injury), Acute hypotension, Episode of syncope Instructions Patient Instructions: DI for Syncope in Adults (Fainting), DI for Syncope in Children (Fainting) Print Language Print Language: Hungarian Discharge ED Provider: Davy Dubon General Adult HPI General Chief complaint: Syncope Stated complaint: Syncope, Low BP Time Seen by Provider: 08/16/24 09:53 Mode of Arrival: EMS Source of Information: Patient, EMS and Medical Record Description of Symptoms (Recalled from ER Triage Doc. by RN): Pt c/o syncopal episode at home with a fall. States he was up moving around as usual this AM, drove and dropped family at bus stop and ate a bowl of chili. States he got up to take clean the dirty dish and then awoke on the ground. He has a significant cardiac hx with 14 cardiac stents, most recent placed approx 1 yr ago. He follows [facility]. Denies any pain anywhere or injury from fall. Pt's BP was low with EMS 70-80 SBP, states every time they change my meds around it makes my pressure go down . Denies any SOA, dizziness, or chest pain. History of Present Illness HPI narrative: Please note that above description of symptoms, in this electronic medical record under categorization of recalled from ER triage doctor by RN are reflective of an initial nursing assessment, however, is not reflective of my full history and physical exam that was personally taken and clarified. Consequentially, this preceding description of symptoms, which may include the patient's categorized chief complaint in the EMR, do not reflect my personal clinical impression, and the ultimate description of history of present illness and patient stated complaints should be deferred to this section of the note. Unless stated otherwise or congruent with this section of the note, additional signs, symptoms, or incongruence should be interpreted as inaccurate with my clinical impression. Related Data Home Medications ?Medication ?Instructions ?Recorded ?Confirmed isosorbide dinitrate 30 mg tablet 60 mg PO BID 08/01/19 08/16/24 metformin 500 mg tablet 500 mg PO BID Diabetes 08/01/19 08/16/24 omeprazole 40 mg capsule,delayed 40 mg PO DAILY 08/01/19 08/16/24 release pravastatin 40 mg tablet 40 mg PO HS Cholesterol 11/26/21 08/16/24 furosemide 80 mg tablet 80 mg PO DAILY 01/08/22 08/16/24 amlodipine 10 mg tablet 10 mg PO DAILY 04/23/23 08/16/24 apixaban 5 mg tablet (Eliquis) 10 mg PO BID Blood thinner 04/23/23 08/16/24 nitroglycerin 0.4 mg sublingual 0.4 mg buccal DIRECTED PRN 04/23/23 08/16/24 tablet Chest Pain lisinopril 40 mg tablet 40 mg PO DAILY 07/23/23 08/16/24 metoprolol tartrate 25 mg tablet 25 mg PO BID 07/23/23 08/16/24 clopidogrel 75 mg tablet (Plavix) 75 mg PO DAILY 10/21/23 08/16/24 spironolactone 50 mg tablet 50 mg PO BID 10/29/23 08/16/24 (Aldactone) levofloxacin 500 mg tablet 500 mg PO DAILY 08/16/24 08/16/24 Previous Rx's ?Medication ?Instructions ?Recorded fluticasone propionate 50 2 spray intranasal DAILY use in 01/08/22 mcg/actuation nasal the AM #16 grams spray,suspension (Flonase Allergy Relief) Allergies Allergy/AdvReac Type Severity Reaction Status Date / Time Penicillins Allergy Severe Anaphylaxis Verified 08/16/24 10:42 oxycodone Allergy Hives Verified 08/16/24 10:42 Sulfa (Sulfonamide Allergy Rash Verified 08/16/24 10:42 Antibiotics) [facility] Disclaimer: The information contained in this section may have been updated after the patient was seen, as this information can be updated by other users. Medical History (Updated 08/16/24 @ 12:18 by Davy Dubon MD) CAD (coronary artery disease) Asthma Diabetes type 2, controlled Surgical History (Updated 08/16/24 @ 10:41 by Yuly Powell RN) History of coronary artery stent placement No pertinent past surgical history Family History Brother Alcoholism Coronary artery disease Heart attack Hypertension Father Asthma Coronary artery disease Diabetes Heart attack Hypertension Mother Coronary artery disease Heart attack Hypertension Sister Coronary artery disease Heart attack Hypertension Social History Smoking Status: Former smoker alcohol intake: never substance use type: denies use current occupational status: retired Travel in the last 8 weeks: None housing: house caffeine: Yes Have you lived/traveled outside [place] in past 30 days?: No Contact w/someone who lives/traveled outside [place] past 30 days?: No Exposure to someone with infectious disease in past 14 days?: No Do you have a fever (greater than 100.4 F or 38 C)?: No Have you tested positive for COVID-19: No Exposed to someone with COVID-19 in past 14 days?: No Do you have a sore throat?: No Do you have a cough?: No Do you have any weakness?: Yes Do you have any diarrhea?: No Are you experiencing any unusual bleeding?: No Do you have any muscle aches/pain?: No Do you have any abdominal pain?: No Are you experiencing loss of taste or smell?: No Other Medical History Have you received the Flu Vaccine for this season: No Have you received the Pneumonia Vaccine: Yes ROS Obtained: Yes All systems reviewed & no additional complaints except as documented Physical Exam General General appearance: alert, in no apparent distress and obese Head Head exam: atraumatic and normocephalic Eye Eye exam: Present normal appearance, PERRL and EOMI Neck Neck exam: Present normal inspection, full ROM and trachea midline Respiratory Respiratory exam: Present normal lung sounds bilaterally; Absent respiratory distress, wheezes, stridor, accessory muscle use or prolonged expiratory phase Cardiovascular Cardiovascular exam: Present regular rate, normal rhythm, Pacemaker/defibrillator and other (Pulses equal symmetric in upper and lower extremities) Abdominal Exam Abdominal exam: Present soft; Absent distention, tenderness or pulsatile mass Extremities Exam Extremities exam: Absent edema Neurological Exam Neurological exam: Present alert, oriented X3 and CN II-XII intact; Absent motor sensory deficit Skin Skin exam: Present warm and dry; Absent diaphoresis or erythema Medical Decision Making Medical Records Medical records reviewed: Yes I reviewed the patient's medical records. Screening: Per USPSTF and CDC recommendations, given the prevalence of disease in our region, it is our hospital?s policy to screen for HIV and viral Hepatitis for all patients aged 18 and over and those with ongoing risk factors. Los Inquiry Pt receiving controlled substance: No Los was queried for this patient: No Vital Signs: 08/16/24 09:31 08/16/24 10:00 08/16/24 10:35 Temperature 98.0 F Temperature Source Oral Pulse Rate 76 66 Pulse Rate [Right] 79 Respiratory Rate 20 22 18 Blood Pressure 88/52 L 76/46 L Blood Pressure [Right Arm] 82/46 L Blood Pressure Mean [Right Arm] 58 Blood Pressure Source [Right Arm] Automatic Cuff 02 Sat by Pulse Oximetry 98 97 97 Oxygen Delivery Method Room Air Room Air Room Air 08/16/24 11:00 08/16/24 11:14 08/16/24 11:30 Temperature Temperature Source Pulse Rate 61 61 68 Pulse Rate [Right] Respiratory Rate 18 22 18 Blood Pressure 77/44 L 78/49 L 86/46 L Blood Pressure [Right Arm] Blood Pressure Mean [Right Arm] Blood Pressure Source [Right Arm] 02 Sat by Pulse Oximetry 97 97 98 Oxygen Delivery Method Room Air Room Air Room Air 08/16/24 12:00 Temperature Temperature Source Pulse Rate 64 Pulse Rate [Right] Respiratory Rate 16 Blood Pressure 86/53 L Blood Pressure [Right Arm] Blood Pressure Mean [Right Arm] Blood Pressure Source [Right Arm] 02 Sat by Pulse Oximetry 98 Oxygen Delivery Method Room Air Lab Data Lab Results 08/16/24 09:42: WBC 7.5, RBC 4.55 L, Hgb 14.1, Hct 41.2 L, MCV 90.5, MCH 31.0, MCHC 34.2, RDW 12.9, Plt Count 312, MPV 9.2, Neut % (Auto) 54.6, Lymph % (Auto) 31.6, [place] % (Auto) 11.3 H, Eos % (Auto) 1.1, Baso % (Auto) 0.5, Neut # (Auto) 4.1, Lymph # (Auto) 2.4, [place] # (Auto) 0.9, Eos # (Auto) 0.1, Baso # (Auto) 0.0, PT 10.7, INR 0.97, APTT 28.2, Sodium 136, Potassium 5.8 H, Chloride 105, Carbon Dioxide 22, Anion Gap 14.8, BUN 42 H, Creatinine 1.60 H, Estimated Creat Clear 84, Estimated GFR 43 L, Est GFR ( Amer) 52 L, Glucose 121 H, Calcium 9.6, Magnesium 1.6, Total Bilirubin 0.9, AST 37, ALT 27, Alkaline Phosphatase 47, Troponin I < 0.01, NT-Pro-B Natriuret Pep 737 H, Total Protein 8.1, Albumin 4.8, Globulin 3.3 H, Albumin/Globulin Ratio 1.5, Procalcitonin 0.095 08/16/24 09:55: VBG pH 7.31, VBG pCO2 41.0, VBG pO2 52.1 H, VBG HCO3 19.9 L, VBG Total CO2 21.2 L, VBG O2 Saturation 82.9 H, VBG Base Excess -6.4 L, VBG Lactic Acid 2.8 H 08/16/24 09:42 08/16/24 09:42 Orders (Tests/Meds): ED MEDICATIONS Discontinued Medications Generic Name Dose Route Start Last Admin Trade Name Freq PRN Reason Stop Dose Admin Aspirin 324 mg 08/16/24 09:54 08/16/24 10:14 Aspirin 81mg Chewable Tablet PO 08/16/24 09:55 324 mg ONCE ONE Administration Lactated Ringer's 1,000 mls @ 999 mls/hr 08/16/24 10:23 08/16/24 10:30 Lactated Ringer's 1000 Ml Bag IV 08/16/24 11:23 999 mls/hr .Q1H1M ONE Administration ORDERS Category Date Time Status CT cervical spine wo con Stat Cat Scan 08/16/24 10:[address] head/brain wo con Stat Cat Scan 08/16/24 10:19 Completed Cardiology Consult [Consult to Cardiology] [CONS] Cons 08/16/24 11:55 Active Routine XR chest portable Stat Exams 08/16/24 09:54 Completed Complete Blood Count Auto Diff AMLAB Lab 08/17/24 06:00 Ordered Complete Blood Count Auto Diff Stat Lab 08/16/24 09:42 Completed Comprehensive Metabolic Panel AMLAB Lab 08/17/24 06:00 Ordered Comprehensive Metabolic Panel Stat Lab 08/16/24 09:42 Completed Magnesium AMLAB Lab 08/17/24 06:00 Ordered Magnesium Stat Lab 08/16/24 09:42 Completed NT Pro Brain Natriuretic Pep. Stat Lab 08/16/24 09:42 Completed PT INR [Prothrombin Time INR] Stat Lab 08/16/24 09:42 Completed PTT [Activated Partial Thrombo Time] Stat Lab 08/16/24 09:42 Completed Procalcitonin Stat Lab 08/16/24 09:42 Completed Troponin I Q3H Lab 08/16/24 13:00 Ordered Troponin I Q3H Lab 08/16/24 16:00 Ordered Troponin I Stat Lab 08/16/24 09:42 Completed Venous Blood Gas Stat RT 08/16/24 09:55 Completed HEART Score History (anamnesis): Moderately suspicious ECG: Non-specific disturbance Age: >65 years Risk factors: 3 or more risk factors Troponin: </= normal limit HEART Score: 6 Medical Decision Narrative: 69-year-old male history of hypertension, hyperlipidemia, CAD status post stenting x 14, PAD, atrial fibrillation on Eliquis, cardiomyopathy with pacemaker in place presenting with syncopal episode. Patient states that he stood up after eating breakfast and woke up on the floor. Denies vision changes, numbness, tingling, weakness,chest pain, shortness of breath, lower extremity swelling, or associated symptoms. Woke up on the floor and feels that his baseline, currently has no acute complaints. He states that he recently had an increase of his metoprolol and his blood pressure has been running low since that time. History was obtained via conversation with patient and EMS. On arrival, patient hemodynamically stable, alert, oriented x4, appropriate, GCS 15, moving all extremities spontaneously, pupils equal and reactive to light. Full physical exam performed and significant for very clinically well-appearing male no acute distress. Speaking in full sentences with no acute complaints. Lungs are clear, cardiac exam without murmurs gallops or rubs. Pacemaker in place in left side of chest. No lower extremity edema. Pulses equal and symmetric in upper and lower extremities. Neurologically intact with NIHSS 0. He is hypotensive and currently being paced. Differential includes iatrogenic, ACS, NH, pneumothorax, CHF, arrhythmia, metabolic abnormality, endocrinologic abnormality, intracranial hemorrhage among others. Less likely to be dissection or PE given no pain, nontachycardic, no acute distress and patient already on thinners. Patient placed on continuous cardiac monitoring and continuous pulse ox with initial blood pressure 82/46, heart rate of 79 paced, saturation 98% on room air. Independent interpretation of EKG shows appears to be atrial fibrillation background with V-paced rhythm. Rate 63, QRS 109, QTc 425. Leftward axis. Patient does have new T wave inversions in septal, anterior and lateral leads without reciprocal elevations new from previous EKGs. Patient was given aspirin for symptomatic management and correction of underlying abnormalities. Workup independently interpreted and significant for nonactionable CBC. Chemistry with moderate SHREYA creatinine 1.6 and BUN 42 likely prerenal. Mild hyperkalemia 5.8, given fluids for this. BNP 737, troponin negative. On independent interpretation of imaging, no acute intrathoracic process. See radiology read for full review of final results. Heart score 6. On reevaluation, patient resting comfortably. States he wants to go home. Acuity of kidney dysfunction and likely beta-bubba unintentional overdose syndrome leading to patient's syncope was stressed, eventually, patient agreeable to admission. Tissue perfusion reassessment performed within 3 hours, patient mentating, following commands, good capillary refill and hemodynamically stable. Given patient presentation, workup, history, this most likely represents SHREYA in the setting of overdiuresis as well as unintentional beta- bubba overdose Sample Paster disclaimer Much of this encounter note is an electronic burlap roll coverer spoken language to printed text. Electronic burlap roll coverer of the spoken language may permit errors. Although I have reviewed the note, some errors may still exist. Critical Care Critical Care Time Critical Care Time: Yes (cardiac) Attestation: On 08/16/24, the high probability of a clinically significant, sudden or life threatening deterioration of the following system(s) required my full and direct attention, intervention and personal management. The time I documented below is in addition to time spent performing reported procedures but includes the following listed in this critical care notation. Total Time Total Critical Care Time: 35
[2024-08-16 10:22] LABS: NT Pro Brain Natriuretic Pep. 737 pg/mL (0-125)
[2024-08-16 10:24] LABS: Troponin I < 0.01 ng/ml (0.00-0.034)
[2024-08-16 10:28] LABS: Albumin Level 4.8 g/dl (3.5-5.0); Albumin/Globulin Ratio 1.5 (1.1-1.8); Anion Gap 14.8 mEq/L (5-15); Chloride 105 mmol/L (98-107); Globulin 3.3 g/dL (1.3-3.2); Sodium 136 mmol/L (136-145)
[2024-08-16] MEDS: LACTATED RINGERS 1000ML 1,000 ML 999 ML IV (10:30)
[2024-08-16 10:31] LABS: Activated Partial Thrombo Time 28.2 seconds (22.5-28.5)
[2024-08-16 10:49] LABS: Procalcitonin 0.095 ng/mL (0.0-2.0)
--- NOTE | 2024-08-16 11:57 | P.HP_ITS ---
History of Present Illness *Admission Date: 08/16/24 *Reason for visit:: Syncope *History of present illness: Mr. Siddiqui is a 69-year-old male with extensive history of CAD, hypertension, CHF, A-fib on Eliquis. Patient also has a pacemaker in situ. Presented to the ER today after an episode of syncope after eating breakfast. States he was eating breakfast and then woke up on the floor. Denies any confusion after regaining consciousness. Denies any shortness of breath, chest pain, nausea or vomiting. Blood pressure found to be significantly low with systolics in the 70s on arrival to the ER. Alert and oriented x 3 with GCS of 15. Persistent hypotension in the ER with SHREYA noted on labs. Medicine consulted for further management of syncope and hypotension. Strong concern for medication side effect given his numerous medications for rate control, hypertension, fluid management. On arrival to the floor, patient is stable on room air. Denies any chest pain. Blood pressure showing some slight improvement with systolics in the 80s and 90s. Currently on no pressors. Tolerating p.o. intake. Making good urine. [facility] Disclaimer: The information contained in this section may have been updated after the patient was seen, as this information can be updated by other users. Medical History SHREYA (acute kidney injury) Acute hypotension Episode of syncope Family history of [place] (myocardial infarction) History of bladder cancer History of BPH History of atrial fibrillation History of pacemaker History of hyperlipidemia History of hypertension History of bladder cancer CAD (coronary artery disease) Asthma Diabetes type 2, controlled Surgical History History of coronary artery stent placement History of coronary artery stent placement No pertinent past surgical history Family History Brother Coronary artery disease Alcoholism Heart attack Hypertension Father Diabetes Coronary artery disease Heart attack Hypertension Asthma Mother Coronary artery disease Heart attack Hypertension Sister Coronary artery disease Heart attack Hypertension Other History of bladder surgery History of cholecystectomy History of hernia repair Social History Smoking Status: Former smoker alcohol intake: never substance use type: denies use current occupational status: retired Travel in the last 8 weeks: None housing: house caffeine: Yes Have you lived/traveled outside [place] in past 30 days?: No Contact w/someone who lives/traveled outside [place] past 30 days?: No Exposure to someone with infectious disease in past 14 days?: No Do you have a fever (greater than 100.4 F or 38 C)?: No Have you tested positive for COVID-19: No Exposed to someone with COVID-19 in past 14 days?: No Do you have a sore throat?: No Do you have a cough?: No Do you have any weakness?: Yes Do you have any diarrhea?: No Are you experiencing any unusual bleeding?: No Do you have any muscle aches/pain?: No Do you have any abdominal pain?: No Are you experiencing loss of taste or smell?: No Other Medical History Have you received the Flu Vaccine for this season: No Have you received the Pneumonia Vaccine: Yes Review of Systems Review of Systems Review of systems (narrative): 14 point review of systems performed, pertinent positives and negatives as per HPI Meds Home Medications and Allergies Home Medications ?Medication ?Instructions ?Recorded ?Confirmed ?Type isosorbide dinitrate 30 mg tablet 60 mg PO BID 08/01/19 08/16/24 History metformin 500 mg tablet 500 mg PO BIDWMEAL Diabetes 08/01/19 08/16/24 History omeprazole 40 mg capsule,delayed 40 mg PO DAILY 08/01/19 08/16/24 History release pravastatin 40 mg tablet 40 mg PO HS Cholesterol 11/26/21 08/16/24 History furosemide 80 mg tablet 80 mg PO DAILY 01/08/22 08/16/24 History amlodipine 10 mg tablet 10 mg PO DAILY 04/23/23 08/16/24 History apixaban 5 mg tablet (Eliquis) 5 mg PO BID Blood thinner 04/23/23 08/16/24 Hist ory nitroglycerin 0.4 mg sublingual 0.4 mg sublingual Q5MINP PRN Chest 04/23/23 08/16/24 History tablet Pain lisinopril 40 mg tablet 40 mg PO DAILY 07/23/23 08/16/24 History metoprolol tartrate 25 mg tablet 25 mg PO BID 07/23/23 08/16/24 History clopidogrel 75 mg tablet (Plavix) 75 mg PO DAILY 10/21/23 08/16/24 History spironolactone 50 mg tablet 50 mg PO BID 10/29/23 08/16/24 History (Aldactone) fluticasone propionate 50 2 spray intranasal DAILY 08/16/24 08/16/24 History mcg/actuation nasal spray,suspension (Flonase Allergy Relief) levofloxacin 500 mg tablet 500 mg PO DAILY 08/16/24 08/16/24 History New Prescriptions to Start Prescriptions: Allergies Allergy/AdvReac Type Severity Reaction Status Date / Time Penicillins Allergy Severe Anaphylaxis Verified 08/16/24 13:13 oxycodone Allergy Hives Verified 08/16/24 13:13 Sulfa (Sulfonamide Allergy Rash Verified 08/16/24 13:13 Antibiotics) Exam Data for Last 24 hours Vital signs and Labs for Last 24 Hours: Temp Pulse Resp BP Pulse Ox O2 Del Method 98.0 F 66 18 76/46 L 97 Room Air 08/16/24 09:31 08/16/24 10:35 08/16/24 10:35 08/16/24 10:35 08/16/24 10:35 08/16/24 10:35 Laboratory Results - last 24 hr 08/16/24 09:42: WBC 7.5, RBC 4.55 L, Hgb 14.1, Hct 41.2 L, MCV 90.5, MCH 31.0, MCHC 34.2, RDW 12.9, Plt Count 312, MPV 9.2, Neut % (Auto) 54.6, Lymph % (Auto) 31.6, [place] % (Auto) 11.3 H, Eos % (Auto) 1.1, Baso % (Auto) 0.5, Neut # (Auto) 4.1, Lymph # (Auto) 2.4, [place] # (Auto) 0.9, Eos # (Auto) 0.1, Baso # (Auto) 0.0, PT 10.7, INR 0.97, APTT 28.2, Sodium 136, Potassium 5.8 H, Chloride 105, Carbon Dioxide 22, Anion Gap 14.8, BUN 42 H, Creatinine 1.60 H, Estimated Creat Clear 84, Estimated GFR 43 L, Est GFR ( Amer) 52 L, Glucose 121 H, Calcium 9.6, Magnesium 1.6, Total Bilirubin 0.9, AST 37, ALT 27, Alkaline Phosphatase 47, Troponin I < 0.01, NT-Pro-B Natriuret Pep 737 H, Total Protein 8.1, Albumin 4.8, Globulin 3.3 H, Albumin/Globulin Ratio 1.5, Procalcitonin 0.095 08/16/24 09:55: VBG pH 7.31, VBG pCO2 41.0, VBG pO2 52.1 H, VBG HCO3 19.9 L, VBG Total CO2 21.2 L, VBG O2 Saturation 82.9 H, VBG Base Excess -6.4 L, VBG Lactic Acid 2.8 H I & O for Last 24 hours: Intake & Output 08/13/24 08/14/24 08/15/24 08/16/24 23:59 23:59 23:59 23:59 Weight 134.263 kg Constitutional Constitutional: no acute distress, obese, chronically ill appearing and cooperative *Routine HEENT Exam Head: Present normocephalic Eye: Present EOMI and PERRL ENT: Present mucous membranes moist *Routine Neck Exam Neck: Present supple; Absent lymphadenopathy *Routine Respiratory Exam Respiratory: Present CTA bilaterally; Absent rhonchi, wheezes or crackles *Routine Cardiovascular Exam Cardiovascular: Present RRR *Routine Abdominal Exam Abdominal: Present soft and normoactive bowel sounds; Absent tenderness *Routine Rectal Exam Rectal:: deferred *Routine Genitalia Exam Genitalia:: deferred *Routine Extremities Exam Extremities: Absent cyanosis, clubbing or edema *Routine Skin Exam Skin: Present warm; Absent rash *Routine Neurological Exam Neurological: Present alert, oriented X3 and moving all extremities; Absent altered mental status Assessment and Plan *Assessment and plan (1) Episode of syncope: Status: Acute Qualifiers: Syncope type: unspecified Qualified Code(s): R55 - Syncope and collapse Category: Medical Code(s): R55 - Syncope and collapse (2) Acute hypotension: Status: Acute Category: Medical Code(s): I95.9 - Hypotension, unspecified (3) CAD (coronary artery disease): Status: Acute Qualifiers: Coronary Disease-Associated Artery/Lesion type: [place] artery [place] vs. transplanted heart: [place] heart Associated angina: without angina Qualified Code(s): I25.10 - Atherosclerotic heart disease of [place] coronary artery without angina pectoris Category: Medical Code(s): I25.10 - Atherosclerotic heart disease of [place] coronary artery without angina pectoris (4) History of hyperlipidemia: Status: Acute Category: Medical Code(s): Z86.39 - Personal history of other endocrine, nutritional and metabolic disease (5) History of pacemaker: Status: Acute Category: Medical Code(s): Z95.0 - Presence of cardiac pacemaker (6) History of atrial fibrillation: Status: Acute Category: Medical Code(s): Z86.79 - Personal history of other diseases of the circulatory system (7) History of hypertension: Status: Acute Category: Medical Code(s): Z86.79 - Personal history of other diseases of the circulatory system (8) Diabetes type 2, controlled: Status: Acute Qualifiers: Diabetes mellitus detention insulin use: 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 Siddiqui is a 69-year-old male who had a syncopal event at home. Presented to the ER and was found to be significantly hypotensive. States that his blood pressure drops in the morning after taking his meds but usually improves by the afternoon. Given his persistent hypotension, SHREYA, syncopal event, medicine cons ulted for admission and further management. Discussed case with ER physician, request admission for further workup of his hypotensive episode and treatment of his syncope. I agreed to admit for further care. Cardiology consulted to assist with management. Will monitor overnight. Problems addressed as follows: Syncope Hypotension -Patient on multiple medications for heart failure and A-fib. Currently on amlodipine 10 mg daily, Lasix 80 daily, isosorbide dinitrate 60 mg twice daily, lisinopril 40 mg daily, metoprolol tartrate 25 mg twice daily, and on 50 mg twice daily. -States his blood pressure is lowest in the morning after taking his morning meds and then improved by the afternoon. -Will continue metoprolol tartrate 25 mg twice daily for A-fib. Holding his diuretics and other blood pressure medications at this time. Monitor on telemetry. Currently in stepdown. -Cardiology consulted, recommend stopping Norvasc as well as decreasing spironolactone. Recommend holding lisinopril and isosorbide along with Lasix today. Reevaluate resuming tomorrow Atrial fibrillation -Continue metoprolol as above and continue Eliquis 5 mg twice daily for long- term anticoagulation CAD: - patient reports a history of 14 stents placed. He denies any chest pain or pressure. His troponins are negative. No plans for invasive left cardiac catheterization at this time. Hyperlipidemia: His LDL goal is less than 55. Will get a lipid panel in the morning. Continue pravastatin 40 mg SHREYA: Creatinine 1.6, BUN 42. Baseline appears to be 1-1.2. Repeat CBC, CMP, magnesium ordered for the morning. The patient does have a permanent pacemaker in place. He states that it is a [employer] device. Cardiology to interrogate device -Echocardiogram pending to evaluate LV function Diabetes: Glucose on arrival 121. Fingerstick ACHS with sliding scale insulin. Resume metformin 500 mg twice daily. Full code Eliquis 5 mg twice daily Cardiac diet
--- NOTE | 2024-08-16 11:57 | PC.NURSE ---
NEONATAL PEDIATRIC NURSE NOTIFIED OF ADMISSION
--- NOTE | 2024-08-16 12:54 | PC.NURSE ---
Pt to ICU @ [id number]
[2024-08-16 13:58] LABS: Troponin I < 0.01 ng/ml (0.00-0.034)
[2024-08-16 14:12] LABS: Reflex Lactic Add Lactic Reflex
[2024-08-16 14:54] LABS: Lactic Acid Follow Up (RFLX 1) 1.8 mmol/L (0.7-2.1)
--- NOTE | 2024-08-16 15:10 | [facility].PHAINT1 ---
Pharmacy Intervention Comments: MEDICATION RECONCILIATION COMPLETE USING LIST FROM RECENT MD OFFICE VISIT NOTE, EXTERNAL PHARMACY FILL HISTORY.
[2024-08-16] MEDS: ACETAMINOPHEN 325MG TAB 650 MG PO (15:34)
--- NOTE | 2024-08-16 16:31 | P.CONCA_ITS ---
History of Present Illness History of Present Illness Consult date: 08/16/24 Requesting physician: Mracellus Ye Chief complaint: syncope History of present illness: This is a 69-year-old white gentleman who presented to the emergency department after a syncopal episode at home and low blood pressure. The patient states that he woke up this morning and felt fine. He drove his grandchildren to the bus stop and came home and ate a bowl of chili. He states after he finished eating he got up to go clean his dirty dishes at the sink and that is all he remembers. The next thing he knows he woke up on the ground. He does not really know how long he was out but he does not think that it was very long. He states that he had no symptoms prior to the syncopal episode. He denies any chest pain or pressure. He denies any shortness of breath or edema. He denies any fever, chills, nausea, vomiting, diarrhea, PND or orthopnea. The patient does report that he follows with cardiology at [facility]. He has a history of coronary artery disease with 14 cardiac stents placed. He does have a history of paroxysmal atrial fibrillation and is on Eliquis. He does have a Biotronik pacemaker in place that he states will need a new battery next year. He states that when he got up after his syncopal episode he called EMS. When EMS arrived his systolic blood pressure was in the 70 to 80s. The patient reports that whenever his blood pressure medications are changed it makes his blood pressure drop. But prior to the syncopal episode he states he has been feeling well. [facility] Disclaimer: The information contained in this section may have been updated after the patient was seen, as this information can be updated by other users. Medical History (Updated 08/16/24 @ 16:35 by Ceci Roberto APRN) SHREYA (acute kidney injury) Acute hypotension Episode of syncope Family history of [place] (myocardial infarction) History of bladder cancer History of BPH History of atrial fibrillation History of pacemaker History of hyperlipidemia History of hypertension History of bladder cancer CAD (coronary artery disease) Asthma Diabetes type 2, controlled Surgical History (Updated 08/16/24 @ 13:43 by Laury Tucker RN) History of coronary artery stent placement History of coronary artery stent placement No pertinent past surgical history Family History (Updated 08/16/24 @ 13:44 by Laury Tucker RN) Brother Coronary artery disease Alcoholism Heart attack Hypertension Father Diabetes Coronary artery disease Heart attack Hypertension Asthma Mother Coronary artery disease Heart attack Hypertension Sister Coronary artery disease Heart attack Hypertension Other History of bladder surgery History of cholecystectomy History of hernia repair Social History (Updated 08/16/24 @ 13:45 by Laury Tucker RN) Smoking Status: Former smoker alcohol intake: never substance use type: denies use current occupational status: retired Travel in the last 8 weeks: None housing: house caffeine: Yes Have you lived/traveled outside [place] in past 30 days?: No Contact w/someone who lives/traveled outside US past 30 days?: No Exposure to someone with infectious disease in past 14 days?: No Do you have a fever (greater than 100.4 F or 38 C)?: No Have you tested positive for COVID-19: No Exposed to someone with COVID-19 in past 14 days?: No Do you have a sore throat?: No Do you have a cough?: No Do you have any weakness?: Yes Do you have any diarrhea?: No Are you experiencing any unusual bleeding?: No Do you have any muscle aches/pain?: No Do you have any abdominal pain?: No Are you experiencing loss of taste or smell?: No Review of Systems Review of Systems Review of systems:: pertinent systems reviewed and negative unless documented below Constitutional Constitutional: Reports system reviewed and no additional complaints, except as documented Eyes Eyes: Reports system reviewed and no additional complaints, except as documented ENT Ears, Nose, Mouth, and Throat: Reports system reviewed and no additional complaints, except as documented *Cardiovascular Cardiovascular: Reports system reviewed and no additional complaints, except as documented, Denies chest pain, Denies dyspnea and Reports syncope *Respiratory Respiratory: Reports system reviewed and no additional complaints, except as documented and Denies dyspnea *Gastrointestinal Gastrointestinal: Reports system reviewed and no additional complaints, except as documented *Genitourinary Genitourinary: Reports system reviewed and no additional complaints, except as documented *Musculoskeletal Musculoskeletal: Reports system reviewed and no additional complaints, except as documented Integumentary/Breasts Skin/Breast: Reports system reviewed and no additional complaints, except as documented *Neurologic Neurologic: Reports system reviewed and no additional complaints, except as documented and Reports syncope Psychiatric Psychiatric: Reports system reviewed and no additional complaints, except as documented Endocrine Endocrine: Reports system reviewed and no additional complaints, except as documented Hematologic/Lymphatic Hematologic/Lymphatic: Reports system reviewed and no additional complaints, except as documented Allergic/Immunologic Allergic/Immunologic: Reports system reviewed and no additional complaints, except as documented Exam Data for Last 24 hours Vital signs and Labs for Last 24 Hours: Temp Pulse Resp BP Pulse Ox O2 Del Method 97.7 F 63 18 99/62 L 95 Room Air 08/16/24 13:00 08/16/24 16:00 08/16/24 16:00 08/16/24 16:00 08/16/24 16:00 08/16/24 16:00 Laboratory Results - last 24 hr 08/16/24 09:42: WBC 7.5, RBC 4.55 L, Hgb 14.1, Hct 41.2 L, MCV 90.5, MCH 31.0, MCHC 34.2, RDW 12.9, Plt Count 312, MPV 9.2, Neut % (Auto) 54.6, Lymph % (Auto) 31.6, Sevier % (Auto) 11.3 H, Eos % (Auto) 1.1, Baso % (Auto) 0.5, Neut # (Auto) 4.1, Lymph # (Auto) 2.4, Sevier # (Auto) 0.9, Eos # (Auto) 0.1, Baso # (Auto) 0.0, PT 10.7, INR 0.97, APTT 28.2, Sodium 136, Potassium 5.8 H, Chloride 105, Carbon Dioxide 22, Anion Gap 14.8, BUN 42 H, Creatinine 1.60 H, Estimated Creat Clear 84, Estimated GFR 43 L, Est GFR ( Amer) 52 L, Glucose 121 H, Calcium 9.6, Magnesium 1.6, Total Bilirubin 0.9, AST 37, ALT 27, Alkaline Phosphatase 47, Troponin I < 0.01, NT-Pro-B Natriuret Pep 737 H, Total Protein 8.1, Albumin 4.8, Globulin 3.3 H, Albumin/Globulin Ratio 1.5, Procalcitonin 0.095 08/16/24 09:55: VBG pH 7.31, VBG pCO2 41.0, VBG pO2 52.1 H, VBG HCO3 19.9 L, VBG Total CO2 21.2 L, VBG O2 Saturation 82.9 H, VBG Base Excess -6.4 L, VBG Lactic Acid 2.8 H 08/16/24 13:14: Troponin I < 0.01 08/16/24 14:20: Lactate 1.8 I & O for Last 24 hours: Intake & Output 08/13/24 08/14/24 08/15/24 08/16/24 23:59 23:59 23:59 23:59 Intake Total 1500 / 1500 Balance 1500 / 1500 Weight 289 lb 3 oz Constitutional Constitutional: no acute distress and average body habitus *Routine HEENT Exam Head: Present normocephalic and atraumatic ENT: Present mucous membranes moist *Routine Neck Exam Neck: Present supple, full ROM and normal carotid upstroke; Absent JVD, carotid bruit or lymphadenopathy *Routine Respiratory Exam Respiratory: Present CTA bilaterally, normal respiratory effort, able to speak in complete sentences and symmetric chest movement *Routine Cardiovascular Exam Cardiovascular: Present RRR, Normal S1 and Normal S2; Absent murmur or gallop *Routine Abdominal Exam Abdominal: Present soft and normoactive bowel sounds; Absent tenderness, distended or organomegaly *Routine Extremities Exam Extremities: Present full ROM, pulses intact and normal capillary refill; Absent cyanosis, clubbing or edema *Routine Skin Exam Skin: Present intact and warm; Absent erythema *Routine Neurological Exam Neurological: Present alert, oriented X3 and CN II-XII intact; Absent sensory deficit or motor deficit Routine Psychiatric Exam Psychiatric: Present normal affect Meds Home Medications and Allergies Home Medications ?Medication ?Instructions ?Recorded ?Confirmed ?Type isosorbide dinitrate 30 mg tablet 60 mg PO BID 08/01/19 08/16/24 History metformin 500 mg tablet 500 mg PO BIDWMEAL Diabetes 08/01/19 08/16/24 History omeprazole 40 mg capsule,delayed 40 mg PO DAILY 08/01/19 08/16/24 History release pravastatin 40 mg tablet 40 mg PO HS Cholesterol 11/26/21 08/16/24 History furosemide 80 mg tablet 80 mg PO DAILY 01/08/22 08/16/24 History amlodipine 10 mg tablet 10 mg PO DAILY 04/23/23 08/16/24 History apixaban 5 mg tablet (Eliquis) 5 mg PO BID Blood thinner 04/23/23 08/16/24 History nitroglycerin 0.4 mg sublingual 0.4 mg sublingual Q5MINP PRN Chest 04/23/23 08/16/24 History tablet Pain lisinopril 40 mg tablet 40 mg PO DAILY 07/23/23 08/16/24 History metoprolol tartrate 25 mg tablet 25 mg PO BID 07/23/23 08/16/24 History clopidogrel 75 mg tablet (Plavix) 75 mg PO DAILY 10/21/23 08/16/24 History spironolactone 50 mg tablet 50 mg PO BID 10/29/23 08/16/24 History (Aldactone) fluticasone propionate 50 2 spray intranasal DAILY 08/16/24 08/16/24 History mcg/actuation nasal spray,suspension (Flonase Allergy Relief) levofloxacin 500 mg tablet 500 mg PO DAILY 08/16/24 08/16/24 History New Prescriptions to Start Prescriptions: Allergies Allergy/AdvReac Type Severity Reaction Status Date / Time Penicillins Allergy Severe Anaphylaxis Verified 08/16/24 13:13 oxycodone Allergy Hives Verified 08/16/24 13:13 Sulfa (Sulfonamide Allergy Rash Verified 08/16/24 13:13 Antibiotics) Assessment and Plan *Assessment and plan (1) Episode of syncope: Status: Acute Qualifiers: Syncope type: unspecified Qualified Code(s): R55 - Syncope and collapse Category: Medical Code(s): R55 - Syncope and collapse (2) Acute hypotension: Status: Acute Category: Medical Code(s): I95.9 - Hypotension, unspecified (3) SHREYA (acute kidney injury): Status: Acute Category: Medical Code(s): N17.9 - Acute kidney failure, unspecified (4) CAD (coronary artery disease): Status: Acute Qualifiers: Coronary Disease-Associated Artery/Lesion type: [place] artery [place] vs. transplanted heart: [place] heart Associated angina: without angina Qualified Code(s): I25.10 - Atherosclerotic heart disease of [place] coronary artery without angina pectoris Category: Medical Code(s): I25.10 - Atherosclerotic heart disease of [place] coronary artery without angina pectoris (5) History of hyperlipidemia: Status: Acute Category: Medical Code(s): Z86.39 - Personal history of other endocrine, nutritional and metabolic disease (6) History of pacemaker: Status: Acute Category: Medical Code(s): Z95.0 - Presence of cardiac pacemaker (7) History of atrial fibrillation: Status: Acute Category: Medical Code(s): Z86.79 - Personal history of other diseases of the circulatory system (8) History of hypertension: Status: Acute Category: Medical Code(s): Z86.79 - Personal history of other diseases of the circulatory system (9) Diabetes type 2, controlled: Status: Acute Qualifiers: Diabetes mellitus chcf insulin use: without chcf use Diabetes mellitus complication status: without complication Qualified Code(s): E11.9 - Type 2 diabetes mellitus without complications Category: Medical Code(s): E11.9 - Type 2 diabetes mellitus without complications Plan Plan: 1. The patient was admitted to the hospital after a syncopal episode at home. He was hypotensive with a blood pressure in the 70-80 systolic when EMS arrived. The patient reports that this always happens when his blood pressure medications are changed. Cardiology has been consulted to help with adjusting his medications. We do recommend stopping his Norvasc as well as significantly decreasing his spironolactone. 2. We will go ahead and resume his metoprolol today because he does have atrial fibrillation and we do not want him to go into atrial fibrillation with RVR he is currently rate controlled. 3. Continue Eliquis for long-term anticoagulation secondary to his atrial fibrillation. 4. We will hold his lisinopril and isosorbide dinitrate and Lasix today with plans to resume these medications tomorrow. 5. We will plan to resume his spironolactone 25 mg p.o. daily tomorrow. 6. The patient does have a history of coronary artery disease. He reports a history of 14 stents placed. He denies any chest pain or pressure. His troponins are negative. No plans for invasive left cardiac catheterization at this time. 7. His LDL goal is less than 55. Will get a lipid panel in the morning. Will resume his statin. 8. The patient does have an SHREYA with a creatinine of 1.6. As mentioned above we will adjust his spironolactone which will help to improve his renal function as well. He also has an elevated potassium which will be improved with a lower dose of spironolactone. 9. The patient does have a permanent pacemaker in place. He states that it is a Biotronik device. We will try to define a [employer] rep to come interrogate his device following his syncopal episode. 10. Will obtain an echocardiogram to evaluate his LV function due to his syncope. 11. Further recommendations will be made pending the patient's response to treatment and the results of his echocardiogram today. Thank you for the opportunity to help participate in the care of this patient. All recommendations and orders are per Dr. Rob.
[2024-08-16 17:02] LABS: POC Glucose,Bedside 132 (70-110)
[2024-08-16 17:10] LABS: Troponin I < 0.01 ng/ml (0.00-0.034)
--- NOTE | 2024-08-16 18:21 | PC.NURSE ---
No acute events. A/O x4. Pt is paced on tele. SBP >90. Remains on room air. Denies CP, SOA. Medicated once for c/o [place]. Call cristina w/in reach. No needs voiced @ this time. POC ongoing.
--- NOTE | 2024-08-16 18:35 | PC.NURSE ---
CRE swab not obtained due to pt's status downgraded to SD from ICU shortly after admission.
[2024-08-16 20:34] LABS: POC Glucose,Bedside 126 (70-110)
[2024-08-16] MEDS: APIXABAN 5MG TABLET 5 MG PO (20:34)
[2024-08-16] MEDS: PRAVASTATIN 40MG TAB 40 MG PO (20:34)
[2024-08-16 23:25] LABS: Anion Gap 12.8 mEq/L (5-15); Blood Urea Nitrogen 41 mg/dl (9-20); Calcium 9.2 mg/dl (8.4-10.2); Carbon Dioxide 21 mmol/L (22.0-30.0); Chloride 105 mmol/L (98-107); Creatinine Clearance Estimated 87 mL/min (50-200); Estimated Glomerular Filt Rate 47 ml/min (>60); GFR (African American) 56 ML/MIN (>60); Glucose 108 mg/dl (74-100); Magnesium 1.6 mg/dl (1.6-2.3); Potassium 4.8 mmoL/L (3.5-5.1); Sodium 134 mmol/L (136-145)
[2024-08-17] VITALS (13 sets, daily range): BP systolic 102–121; BP diastolic 59–78; PULSE 60–73; RESP 12–19; TEMP 36.5–37.2; O2SAT 94–98; BMI 38.9
[2024-08-17 06:15] LABS: POC Glucose,Bedside 118 (70-110)
[2024-08-17 06:35] LABS: Basophils % 0.5 % (0.1-2.0); Eosinophils # 0.1 K/mm3 (0.0-0.4); Eosinophils % 1.8 % (0.1-12.0); Hematocrit 37.8 % (42.0-52.0); Hemoglobin 12.8 g/dL (14.1-18.0); Lymphocytes # 2.5 K/mm3 (0.7-4.5); Mean Corpuscular HGB Conc 33.9 g/dL (31.8-35.4); Mean Corpuscular Hemoglobin 30.5 pg (27.0-31.2); Mean Corpuscular Volume 90.2 fl (80-94); Mean Platelet Volume 9.4 fl (7.4-10.4); Monocytes # 0.9 K/mm3 (0.1-1.0); Monocytes % 11.5 % (1.7-9.3); Neutrophils # 4.3 K/mm3 (1.8-7.8); Neutrophils % 53.7 % (37.0-80.0); Platelet Count 258 K/mm3 (142-424); Red Blood Count 4.19 M/mm3 (4.60-6.20); White Blood Count 7.9 K/mm3 (4.8-10.8)
[2024-08-17 06:58] LABS: Alanine Aminotransferase 19 U/L (12-78); Albumin Level 4.2 g/dl (3.5-5.0); Albumin/Globulin Ratio 1.6 (1.1-1.8); Alkaline Phosphatase 75 U/L (38-126); Anion Gap 14.8 mEq/L (5-15); Aspartate Amino Transferase 24 U/L (17-59); Bilirubin,Total 0.3 mg/dl (0.2-1.3); Blood Urea Nitrogen 38 mg/dl (9-20); Calcium 9.5 mg/dl (8.4-10.2); Carbon Dioxide 21 mmol/L (22.0-30.0); Chloride 106 mmol/L (98-107); Creatinine Clearance Estimated 100 mL/min (50-200); Estimated Glomerular Filt Rate 55 ml/min (>60); GFR (African American) 66 ML/MIN (>60); Globulin 2.7 g/dL (1.3-3.2); Glucose 110 mg/dl (74-100); Magnesium 1.7 mg/dl (1.6-2.3); Potassium 4.8 mmoL/L (3.5-5.1); Sodium 137 mmol/L (136-145); Total Protein,Serum 6.9 g/dl (6.3-8.2)
[2024-08-17 07:01] LABS: Alanine Aminotransferase 18 U/L (12-78); Albumin Level 4.1 g/dl (3.5-5.0); Alkaline Phosphatase 71 U/L (38-126); Aspartate Amino Transferase 22 U/L (17-59); Bilirubin,Direct 0.2 mg/dl (0.0-0.4); Bilirubin,Indirect 0.1 mg/dL (0.0-0.9); Bilirubin,Total 0.3 mg/dl (0.2-1.3); Bilirubin,Unconjugated 0.1 mg/dL (0.0-1.1); Chol/HDL Ratio 4.8 (1-3.5); Cholesterol 105 mg/dl (140-200); HDL Cholesterol 22 mg/dl (40-60); Total Protein,Serum 6.5 g/dl (6.3-8.2); Triglycerides 268 mg/dl (30-150); VLDL Cholesterol 54 mg/dL (0-40)
--- NOTE | 2024-08-17 08:00 | CA_ITS ---
APPROVED REPORT EXAM: Comprehensive 2D, Doppler, and color-flow Echocardiogram Laboratory Secretary: PAULINA Mclaughlin, RVS Ht: 6 ft 0 in Wt: 289lbs BSA: 2.49 BP: 99/62 mmHg Rhythm: Atrial Fibrillation Indications: Abn EKG, Afib, Hypotension, CAD-14 stents, Pacemaker Echo Enhancing Agent Indication: Rule out Shunt Agent(s) / Amount(s) Used: Agitated Saline 20 cc Comments: TDS-due to Large body habitus and poor acoustics throughout exam 2D Dimensions IVSd 1.39 cm M: 0.6-1.2 LVEF (Visual) 40.00 % PWd 1.23 cm M: 0.6 - 1.2 LA Volume 105.80 mL LVDd 5.58 cm M: 4.2 - 5.9 LA Volume Index [id number] mL/m2 (M/F) 16-34 LVDs 4.48 cm M: 2.5 - 4.0 EF AP4 54.00 % Left Atrium 4.63 cm M: 3.0 - 4.0 GL Strain -20.0 % M-Mode Dimensions LA Diam 5.29 cm (1.9-4.0) EPSs 0.75 cm TAPSE 0.91 (<1.7) LV Diastology E Decel Time 197 (160-240 msec) E/A Ratio 3.70 MED A' 3.10 cm/s LAT A' 12.20 cm/s Aortic Valve JERRI Index 1.06 cm2/m2 AoV Peak Esvin. 141.0 (50-130 cm/s) AO Peak GR. 8.00 mmHg AO Mean GR. 4.00 (<5 mmHg) AO VTI 27.9 (18-25 cm) JERRI (VTI) 2.71 (2.5-4.5 cm2) Mitral Valve MV A Velocity 26.0 (40-130 cm/s) E/A Ratio 3.70 Pulmonary Valve PV Peak Velocity 84.0 (50-150 cm/s) Tricuspid Valve TR P. Velocity 300.00 cm/s RAP Estimate 10.00 mmHg RVSP 46.10 mmHg Left Ventricle The left ventricle is normal size. The left ventricular systolic function is low normal. There is increased LV wall thickness. Diastolic function is indeterminate. The septum is asynchronous. LVEF is 50%. Right Ventricle Right ventricle is mildly dilated. The right ventricular systolic function is normal. There is a device lead in the right ventricle. Atria The left atrium is moderately dilated. Right atrium is moderately dilated. There is no Doppler evidence of interatrial shunt. Agitated saline administration demonstrates no evidence of interatrial shunt. Aortic Valve The aortic valve is mildly thickened. There is no aortic valvular stenosis. Trace aortic regurgitation. Mitral Valve The mitral valve is normal in structure. No evidence of mitral valve stenosis. Mild mitral regurgitation. Tricuspid Valve Tricuspid valve is grossly normal in structure and function. Mild tricuspid regurgitation. RVSP is 30-35 mmHg. Pulmonic Valve The pulmonary valve is normal in structure. Trace pulmonic regurgitation. Great Vessels The aortic root is normal in size. IVC is normal in size and collapses >50% with inspiration. Pericardium There is no pericardial effusion. Other Information Study Quality: Fair Conclusion Low normal LV systolic function. Biatrial dilation. Mild MR, mild TR. There is no Doppler evidence of interatrial shunt. Agitated saline administration demonstrates no evidence of interatrial shunt. Electronically signed by : Nia Rob MD 08/17/2024 23:08:54
[2024-08-17] MEDS: APIXABAN 5MG TABLET 5 MG PO (08:42)
[2024-08-17] MEDS: FUROSEMIDE 40 MG TABLET PO (08:42)
[2024-08-17] MEDS: SPIRONOLACTONE 25MG TABLET 50 MG PO (08:42)
[2024-08-17] MEDS: METFORMIN 500MG TABLET 500 MG PO (08:42)
[2024-08-17] MEDS: CLOPIDOGREL 75MG TAB 75 MG PO (08:43)
[2024-08-17] MEDS: METOPROLOL TARTRATE 25MG TABLET 25 MG PO (08:44)
--- NOTE | 2024-08-17 10:46 | P.DS_ITS ---
General Admission date:: 08/16/24 Discharge date: 08/17/24 HPI HPI HPI: Mr. Siddiqui is a 69-year-old male with extensive history of CAD, hypertension, CHF, A-fib on Eliquis. Patient also has a pacemaker in situ. Presented to the ER today after an episode of syncope after eating breakfast. States he was eating breakfast and then woke up on the floor. Denies any confusion after regaining consciousness. Denies any shortness of breath, chest pain, nausea or vomiting. Blood pressure found to be significantly low with systolics in the 70s on arrival to the ER. Alert and oriented x 3 with GCS of 15. Persistent hypotension in the ER with SHREYA noted on labs. Medicine consulted for further management of syncope and hypotension. Strong concern for medication side effect given his numerous medications for rate control, hypertension, fluid management. On arrival to the floor, patient is stable on room air. Denies any chest pain. Blood pressure showing some slight improvement with systolics in the 80s and 90s. Currently on no pressors. Tolerating p.o. intake. Making good urine. Hospital Course Hospital Course Hospital Course: Mr. Siddiqui is a 69-year-old male who had a syncopal event at home. Presented to the ER and was found to be significantly hypotensive. States that his blood pressure drops in the morning after taking his meds but usually improves by the afternoon. Given his persistent hypotension, SHREYA, syncopal event, medicine consulted for admission and further management. Discussed case with ER physician, request admission for further workup of his hypotensive episode and treatment of his syncope. I agreed to admit for further care. Cardiology consulted to assist with management. Did well overnight. Blood pressure improved. Significant adjustments made to medications. 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 Problems addressed as follows: Syncope Hypotension Atrial fibrillation Pacemaker in situ -Patient on multiple medications for heart failure and A-fib. On presentation patient is on amlodipine 10 mg daily, Lasix 80 daily, isosorbide dinitrate 60 mg twice daily, lisinopril 40 mg daily, metoprolol tartrate 25 mg twice daily, and on 50 mg twice daily. States his blood pressure is lowest in the morning after taking his morning meds and then improved by the afternoon. Monitor on telemetry. Discussed case with cardiology, they evaluated patient. Recommend adjusting medications as follows: Eliquis 5 mg p.o. twice daily, Plavix 75 mg daily, Lasix 40 mg daily, metoprolol 25 mg p.o. twice daily, pravastatin 40 mg nightly and spironolactone 25 mg daily. Stop lisinopril, isosorbide dinitrate and Norvasc. Vitals improved on morning of discharge. Blood pressure 117/78, heart rate 68. - The patient does have a permanent pacemaker in place. He did bring in his [employer] home device. A download was sent in last night which reportedly shows no events and no episodes yesterday. We are waiting for this transmission to be faxed to our office from the [employer] rep. -Echo obtained showing EF is normal and no significant valve issues CAD: - patient reports a history of 14 stents placed. He denies any chest pain or pressure. His troponins are negative. No plans for invasive left cardiac catheterization at this time. SHREYA: Creatinine 1.6, BUN 42 on presentation. Improved to 38 and 1.3 by morning of discharge. Needs repeat labs at follow-up as an outpatient to monitor stability of kidney function and electrolytes Diabetes: Glucose on arrival 121. Well-controlled during admission. Resume home regimen of metformin 500 mg twice daily at discharge Exam Data for Last 24 hours Vital signs and Labs for Last 24 Hours: Temp Pulse Resp BP Pulse Ox O2 Del Method O2 Flow Rate 97.7 F 65 17 121/68 95 Room Air 30 08/17/24 08:00 08/17/24 10:00 08/17/24 10:00 08/17/24 10:00 08/17/24 10:00 08/17/24 10:00 08/17/24 02:30 Laboratory Results - last 24 hr 08/16/24 09:42: Procalcitonin 0.095 08/16/24 13:14: Troponin I < 0.01 08/16/24 14:20: Lactate 1.8 08/16/24 15:50: Troponin I < 0.01 08/16/24 16:54: POC Glucose 132 H 08/16/24 20:25: POC Glucose 126 H 08/16/24 23:00: Sodium 134 L, Potassium 4.8, Chloride 105, Carbon Dioxide 21 L, Anion Gap 12.8, BUN 41 H, Creatinine 1.50 H, Estimated Creat Clear 87, Estimated GFR 47 L, Est GFR ( Amer) 56 L, Glucose 108 H, Calcium 9.2, Magnesium 1.6 08/17/24 05:18: WBC 7.9, RBC 4.19 L, Hgb 12.8 L, Hct 37.8 L, MCV 90.2, MCH 30.5, MCHC 33.9, RDW 13.0, Plt Count 258, MPV 9.4, Neut % (Auto) 53.7, Lymph % (Auto) 32.0, [place] % (Auto) 11.5 H, Eos % (Auto) 1.8, Baso % (Auto) 0.5, Neut # (Auto) 4.3, Lymph # (Auto) 2.5, [place] # (Auto) 0.9, Eos # (Auto) 0.1, Baso # (Auto) 0.0, Sodium 137, Potassium 4.8, Chloride 106, Carbon Dioxide 21 L, Anion Gap 14.8, BUN 38 H, Creatinine 1.30 H, Estimated Creat Clear 100, Estimated GFR 55 L, Est GFR ( Amer) 66, Glucose 110 H, Calcium 9.5, Magnesium 1.7, Total Bilirubin 0.3 08/17/24 05:18: Total Bilirubin 0.3, Direct Bilirubin 0.2, Conjugated Bilirubin 0.0, Indirect Bilirubin 0.1, Unconjugated Bilirubin 0.1, AST 24 D 08/17/24 05:18: AST 22, ALT 19 D 08/17/24 05:18: ALT 18, Alkaline Phosphatase 75 08/17/24 05:18: Alkaline Phosphatase 71, Total Protein 6.9 08/17/24 05:18: Total Protein 6.5, Albumin 4.2 D 08/17/24 05:18: Albumin 4.1, Globulin 2.7, Albumin/Globulin Ratio 1.6, Triglycerides 268 H, Cholesterol 105 L, LDL Cholesterol Direct 46.80 L, VLDL Cholesterol 54 H, HDL Cholesterol 22 L, Cholesterol/HDL Ratio 4.8 H 08/17/24 06:09: POC Glucose 118 H I & O for Last 24 hours: Intake & Output 08/14/24 08/15/24 08/16/24 08/17/24 23:59 23:59 23:59 23:59 Intake Total 2039 360 / 360 Output Total 1100 / 1350 1850 / 1850 Balance 940 / 690 -1490 / -1490 Weight 131.173 kg 130.453 kg Constitutional Constitutional: no acute distress, morbidly obese, chronically ill appearing and cooperative *Routine HEENT Exam Head: Present normocephalic and atraumatic ENT: Present mucous membranes moist *Routine Neck Exam Neck: Present supple, full ROM and normal carotid upstroke; Absent JVD, carotid bruit or lymphadenopathy *Routine Respiratory Exam Respiratory: Present CTA bilaterally, normal respiratory effort, able to speak in complete sentences and symmetric chest movement; Absent rhonchi, wheezes or crackles *Routine Cardiovascular Exam Cardiovascular: Present RRR, Normal S1 and Normal S2; Absent murmur or gallop *Routine Abdominal Exam Abdominal: Present soft and normoactive bowel sounds; Absent tenderness, distended or organomegaly *Routine Rectal Exam Patient deferred: visual exam *Routine Exam Patient deferred: penile exam *Routine Extremities Exam Extremities: Present full ROM, pulses intact and normal capillary refill; Absent cyanosis, clubbing or edema *Routine Skin Exam Skin: Present intact and warm; Absent erythema *Routine Neurological Exam Neurological: Present alert, oriented X3, CN II-XII intact and moving all extremities; Absent sensory deficit, motor deficit or altered mental status Routine Psychiatric Exam Psychiatric: Present normal affect Results Data Completed and Pending Labs on day of discharge: Labs from last 24 hours 08/17/24 08/17/24 08/17/24 06:09 05:18 05:18 WBC RBC Hgb Hct MCV MCH MCHC RDW Plt Count MPV Neut % (Auto) Lymph % (Auto) [place] % (Auto) Eos % (Auto) Baso % (Auto) Neut # (Auto) Lymph # (Auto) [place] # (Auto) Eos # (Auto) Baso # (Auto) Sodium Potassium Chloride Carbon Dioxide Anion Gap BUN Creatinine Estimated Creat Clear Estimated GFR Est GFR ( Amer) Glucose POC Glucose 118 H Lactate Calcium Magnesium Total Bilirubin Direct Bilirubin Conjugated Bilirubin Indirect Bilirubin Unconjugated Bilirubin AST ALT Alkaline Phosphatase Troponin I Total Protein 6.5 Albumin 4.1 4.2 D Globulin 2.7 Albumin/Globulin Ratio 1.6 Triglycerides 268 H Cholesterol 105 L LDL Cholesterol Direct 46.80 L VLDL Cholesterol 54 H HDL Cholesterol 22 L Cholesterol/HDL Ratio 4.8 H Procalcitonin 08/17/24 08/17/2408/17/25 05:18 05:18 05:18 WBC RBC Hgb Hct MCV MCH MCHC RDW Plt Count MPV Neut % (Auto) Lymph % (Auto) [place] % (Auto) Eos % (Auto) Baso % (Auto) Neut # (Auto) Lymph # (Auto) [place] # (Auto) Eos # (Auto) Baso # (Auto) Sodium Potassium Chloride Carbon Dioxide Anion Gap BUN Creatinine Estimated Creat Clear Estimated GFR Est GFR ( Amer) Glucose POC Glucose Lactate Calcium Magnesium Total Bilirubin Direct Bilirubin Conjugated Bilirubin Indirect Bilirubin Unconjugated Bilirubin AST 22 ALT 18 19 D Alkaline Phosphatase 71 75 Troponin I Total Protein 6.9 Albumin Globulin Albumin/Globulin Ratio Triglycerides Cholesterol LDL Cholesterol Direct VLDL Cholesterol HDL Cholesterol Cholesterol/HDL Ratio Procalcitonin 08/17/24 08/17/24 08/16/24 05:18 05:18 23:00 WBC 7.9 RBC 4.19 L Hgb 12.8 L Hct 37.8 L MCV 90.2 MCH 30.5 MCHC 33.9 RDW 13.0 Plt Count 258 MPV 9.4 Neut % (Auto) 53.7 Lymph % (Auto) 32.0 [place] % (Auto) 11.5 H Eos % (Auto) 1.8 Baso % (Auto) 0.5 Neut # (Auto) 4.3 Lymph # (Auto) 2.5 [place] # (Auto) 0.9 Eos # (Auto) 0.1 Baso # (Auto) 0.0 Sodium 137 134 L Potassium 4.8 4.8 Chloride 106 105 Carbon Dioxide 21 L 21 L Anion Gap 14.8 12.8 BUN 38 H 41 H Creatinine 1.30 H 1.50 H Estimated Creat Clear 100 87 Estimated GFR 55 L 47 L Est GFR ( Amer) 66 56 L Glucose 110 H 108 H POC Glucose Lactate Calcium 9.5 9.2 Magnesium 1.7 1.6 Total Bilirubin 0.3 0.3 Direct Bilirubin 0.2 Conjugated Bilirubin 0.0 Indirect Bilirubin 0.1 Unconjugated Bilirubin 0.1 AST 24 D ALT Alkaline Phosphatase Troponin I Total Protein Albumin Globulin Albumin/Globulin Ratio Triglycerides Cholesterol LDL Cholesterol Direct VLDL Cholesterol HDL Cholesterol Cholesterol/HDL Ratio Procalcitonin 08/16/24 08/16/24 08/16/24 20:25 16:54 15:50 WBC RBC Hgb Hct MCV MCH MCHC RDW Plt Count MPV Neut % (Auto) Lymph % (Auto) [place] % (Auto) Eos % (Auto) Baso % (Auto) Neut # (Auto) Lymph # (Auto) [place] # (Auto) Eos # (Auto) Baso # (Auto) Sodium Potassium Chloride Carbon Dioxide Anion Gap BUN Creatinine Estimated Creat Clear Estimated GFR Est GFR ( Amer) Glucose POC Glucose 126 H 132 H Lactate Calcium Magnesium Total Bilirubin Direct Bilirubin Conjugated Bilirubin Indirect Bilirubin Unconjugated Bilirubin AST ALT Alkaline Phosphatase Troponin I < 0.01 Total Protein Albumin Globulin Albumin/Globulin Ratio Triglycerides Cholesterol LDL Cholesterol Direct VLDL Cholesterol HDL Cholesterol Cholesterol/HDL Ratio Procalcitonin 08/16/24 08/16/24 08/16/24 14:20 13:14 09:42 WBC RBC Hgb Hct MCV MCH MCHC RDW Plt Count MPV Neut % (Auto) Lymph % (Auto) [place] % (Auto) Eos % (Auto) Baso % (Auto) Neut # (Auto) Lymph # (Auto) [place] # (Auto) Eos # (Auto) Baso # (Auto) Sodium Potassium Chloride Carbon Dioxide Anion Gap BUN Creatinine Estimated Creat Clear Estimated GFR Est GFR ( Amer) Glucose POC Glucose Lactate 1.8 Calcium Magnesium Total Bilirubin Direct Bilirubin Conjugated Bilirubin Indirect Bilirubin Unconjugated Bilirubin AST ALT Alkaline Phosphatase Troponin I < 0.01 Total Protein Albumin Globulin Albumin/Globulin Ratio Triglycerides Cholesterol LDL Cholesterol Direct VLDL Cholesterol HDL Cholesterol Cholesterol/HDL Ratio Procalcitonin 0.095 DS: Diagnosis Discharge Diagnosis (1) Episode of syncope: Status: Acute Code(s): R55 - Syncope and collapse Qualifiers: Syncope type: unspecified Qualified Code(s): R55 - Syncope and collapse (2) Acute hypotension: Status: Acute Code(s): I95.9 - Hypotension, unspecified (3) CAD (coronary artery disease): Status: Acute Code(s): I25.10 - Atherosclerotic heart disease of [place] coronary artery without angina pectoris Qualifiers: Associated angina: without angina Coronary Disease-Associated Artery/Lesion type: [place] artery [place] vs. transplanted heart: [place] heart Qualified Code(s): I25.10 - Atherosclerotic heart disease of [place] coronary artery without angina pectoris (4) History of hyperlipidemia: Status: Acute Code(s): Z86.39 - Personal history of other endocrine, nutritional and metabolic disease (5) History of pacemaker: Status: Acute Code(s): Z95.0 - Presence of cardiac pacemaker (6) History of atrial fibrillation: Status: Acute Code(s): Z86.79 - Personal history of other diseases of the circulatory system (7) History of hypertension: Status: Acute Code(s): Z86.79 - Personal history of other diseases of the circulatory system (8) Diabetes type 2, controlled: Status: Acute Code(s): E11.9 - Type 2 diabetes mellitus without complications Qualifiers: Diabetes mellitus complication status: without complication Diabetes mellitus terminal block assembler insulin use: without terminal block assembler use Qualified Code(s): E11.9 - Type 2 diabetes mellitus without complications (9) SHREYA (acute kidney injury): Status: Acute Code(s): N17.9 - Acute kidney failure, unspecified (10) Class 2 obesity: Status: Acute Code(s): E66.812 - Obesity, class 2 Meds Home Medications and Allergies Home Medications ?Medication ?Instructions ?Recorded ?Confirmed ?Type isosorbide dinitrate 30 mg tablet 60 mg PO BID 08/01/19 08/16/24 History metformin 500 mg tablet 500 mg PO BIDWMEAL Diabetes 08/01/19 08/16/24 History omeprazole 40 mg capsule,delayed 40 mg PO DAILY 08/01/19 08/16/24 History release pravastatin 40 mg tablet 40 mg PO HS Cholesterol 11/26/21 08/16/24 History apixaban 5 mg tablet (Eliquis) 5 mg PO BID Blood thinner 04/23/23 08/16/24 History nitroglycerin 0.4 mg sublingual 0.4 mg sublingual Q5MINP PRN Chest 04/23/23 08/16/24 History tablet Pain lisinopril 40 mg tablet 40 mg PO DAILY 07/23/23 08/16/24 History metoprolol tartrate 25 mg tablet 25 mg PO BID 07/23/23 08/16/24 History clopidogrel 75 mg tablet (Plavix) 75 mg PO DAILY 10/21/23 08/16/24 History fluticasone propionate 50 2 spray intranasal DAILY 08/16/24 08/16/24 History mcg/actuation nasal spray,suspension (Flonase Allergy Relief) furosemide 80 mg tablet 40 mg (1/2 x 80 mg) PO DAILY 30 08/17/24 08/16/24 Rx days #0 tabs spironolactone 50 mg tablet 25 mg (1/2 x 50 mg) PO DAILY 30 08/17/24 08/16/24 Rx (Aldactone) days #0 tabs New Prescriptions to Start Prescriptions: Allergies Allergy/AdvReac Type Severity Reaction Status Date / Time Penicillins Allergy Severe Anaphylaxis Verified 08/16/24 13:13 oxycodone Allergy Hives Verified 08/16/24 13:13 Sulfa (Sulfonamide Allergy Rash Verified 08/16/24 13:13 Antibiotics) Discharge Plan Disposition Patient Disposition: Home, Self-Care Condition: Fair Follow up Plan Follow up with: Marcellus Atkinson MD [Referring] - 09/08/24 11:00 am (AT [facility] ) Tod Barraza MD [Primary Care Provider] - 08/29/24 2:00 pm Prescriptions/Medication Reconciliation: Continued nitroglycerin 0.4 mg tablet, sublingual 0.4 mg sublingual Q5MINP PRN (Reason: Chest Pain) metoprolol tartrate 25 mg tablet 25 mg PO BID Eliquis 5 mg tablet 5 mg PO BID clopidogrel [Plavix] 75 mg tablet 75 mg PO DAILY metformin 500 MG tablet 500 mg PO BIDWMEAL omeprazole 40 MG capsule,delayed release(DR/EC) 40 mg PO DAILY pravastatin 40 MG tablet 40 mg PO HS fluticasone propionate [Flonase Allergy Relief] 50 mcg/actuation spray,suspension 2 spray NS DAILY Rx Instructions: administer into each nostril Changed furosemide 80 mg tablet 40 mg PO DAILY 30 Days Qty: 0 0RF spironolactone [Aldactone] 50 mg Tablet 25 mg PO DAILY 30 Days Qty: 0 0RF Held lisinopril 40 mg tablet 40 mg PO DAILY Hold Instructions: Pending follow-up with cardiology and reevaluation of blood pressure isosorbide dinitrate 30 MG tablet 60 mg PO BID Hold Instructions: Pending follow-up with cardiology and reevaluation of blood pressure Discontinued amlodipine 10 mg tablet 10 mg PO DAILY levofloxacin 500 mg tablet 500 mg PO DAILY Rx Instructions: FOR 10 DAYS, FILLED 08/08/24. Problem Reconciliation Problems Reviewed?: Yes Patient Discharge Instructions DIET: continue same diet Print Language: Upper Sorbian Providers Primary Care Provider: Tod Barraza Admit Provider: Marcellus Ye Attending Provider: Marcellus Ye
[2024-08-17 11:22] LABS: POC Glucose,Bedside 132 (70-110)
--- NOTE | 2024-08-17 13:27 | P.PN_ITS ---
Subjective Subjective Date: 08/17/24 Time: 10:00 Principal diagnosis: syncope, hypotension Interval history: This is a 69-year-old gentleman who presented to the emergency department after syncopal episode at home. The patient was hypotensive. He has had his medications adjusted. His blood pressure has improved overnight. This morning he denies any chest pain or pressure. He denies any shortness of breath or edema. He denies any fever, chills, nausea, vomiting, diarrhea, PND orthopnea. Exam Data for Last 24 hours Vital signs and Labs for Last 24 Hours: Temp Pulse Resp BP Pulse Ox O2 Del Method O2 Flow Rate 97.7 F 68 15 117/78 95 Room Air 30 08/17/24 08:00 08/17/24 12:00 08/17/24 12:00 08/17/24 12:00 08/17/24 12:00 08/17/24 12:00 08/17/24 02:30 Laboratory Results - last 24 hr 08/16/24 13:14: Troponin I < 0.01 08/16/24 14:20: Lactate 1.8 08/16/24 15:50: Troponin I < 0.01 08/16/24 16:54: POC Glucose 132 H 08/16/24 20:25: POC Glucose 126 H 08/16/24 23:00: Sodium 134 L, Potassium 4.8, Chloride 105, Carbon Dioxide 21 L, Anion Gap 12.8, BUN 41 H, Creatinine 1.50 H, Estimated Creat Clear 87, Estimated GFR 47 L, Est GFR ( Amer) 56 L, Glucose 108 H, Calcium 9.2, Magnesium 1.6 08/17/24 05:18: WBC 7.9, RBC 4.19 L, Hgb 12.8 L, Hct 37.8 L, MCV 90.2, MCH 30.5, MCHC 33.9, RDW 13.0, Plt Count 258, MPV 9.4, Neut % (Auto) 53.7, Lymph % (Auto) 32.0, [place] % (Auto) 11.5 H, Eos % (Auto) 1.8, Baso % (Auto) 0.5, Neut # (Auto) 4.3, Lymph # (Auto) 2.5, [place] # (Auto) 0.9, Eos # (Auto) 0.1, Baso # (Auto) 0.0, Sodium 137, Potassium 4.8, Chloride 106, Carbon Dioxide 21 L, Anion Gap 14.8, BUN 38 H, Creatinine 1.30 H, Estimated Creat Clear 100, Estimated GFR 55 L, Est GFR ( Amer) 66, Glucose 110 H, Calcium 9.5, Magnesium 1.7, Total Bilirubin 0.3 08/17/24 05:18: Total Bilirubin 0.3, Direct Bilirubin 0.2, Conjugated Bilirubin 0.0, Indirect Bilirubin 0.1, Unconjugated Bilirubin 0.1, AST 24 D 08/17/24 05:18: AST 22, ALT 19 D 08/17/24 05:18: ALT 18, Alkaline Phosphatase 75 08/17/24 05:18: Alkaline Phosphatase 71, Total Protein 6.9 08/17/24 05:18: Total Protein 6.5, Albumin 4.2 D 08/17/24 05:18: Albumin 4.1, Globulin 2.7, Albumin/Globulin Ratio 1.6, Triglycerides 268 H, Cholesterol 105 L, LDL Cholesterol Direct 46.80 L, VLDL Cholesterol 54 H, HDL Cholesterol 22 L, Cholesterol/HDL Ratio 4.8 H 08/17/24 06:09: POC Glucose 118 H 08/17/24 11:15: POC Glucose 132 H I & O for Last 24 hours: Intake & Output 08/14/24 08/15/24 08/16/24 08/17/24 23:59 23:59 23:59 23:59 Intake Total 2039 360 / 360 Output Total 1100 / 1350 2049 Balance 940 / 690 -1690 / -1690 Weight 289 lb 3 oz 287 lb 9.6 oz Constitutional Constitutional: no acute distress and average body habitus *Routine HEENT Exam Head: Present normocephalic and atraumatic ENT: Present mucous membranes moist *Routine Neck Exam Neck: Present supple, full ROM and normal carotid upstroke; Absent JVD, carotid bruit or lymphadenopathy *Routine Respiratory Exam Respiratory: Present CTA bilaterally, normal respiratory effort, able to speak in complete sentences and symmetric chest movement *Routine Cardiovascular Exam Cardiovascular: Present RRR, Normal S1 and Normal S2; Absent murmur or gallop *Routine Abdominal Exam Abdominal: Present soft and normoactive bowel sounds; Absent tenderness, distended or organomegaly *Routine Extremities Exam Extremities: Present full ROM, pulses intact and normal capillary refill; Absent cyanosis, clubbing or edema *Routine Skin Exam Skin: Present intact and warm; Absent erythema *Routine Neurological Exam Neurological: Present alert, oriented X3 and CN II-XII intact; Absent sensory deficit or motor deficit Routine Psychiatric Exam Psychiatric: Present normal affect Progress Note: A&P Assessment and plan (1) Episode of syncope: Status: Acute (2) Acute hypotension: Status: Acute (3) CAD (coronary artery disease): Status: Acute (4) History of hyperlipidemia: Status: Acute (5) History of pacemaker: Status: Acute (6) History of atrial fibrillation: Status: Acute (7) History of hypertension: Status: Acute (8) Diabetes type 2, controlled: Status: Acute (9) SHREYA (acute kidney injury): Status: Acute (10) Class 2 obesity: Status: Acute Assessment and Plan Assessment and Plan for All Diagnoses:: Plan: 1. The patient was admitted to the hospital after a syncopal episode at home. He was hypotensive with a blood pressure in the 70-80 systolic when EMS arrived. He was restarted on metoprolol yesterday and tolerated this well. 2. His Lasix and spironolactone have been resumed today at lower doses. 3. We will continue to hold Norvasc, lisinopril and isosorbide dinitrate. 4. The patient has atrial fibrillation which is rate controlled. 5. Continue Eliquis for long-term anticoagulation secondary to his atrial fibrillation. 6. The patient does have a history of coronary artery disease. He reports a history of 14 stents placed. He denies any chest pain or pressure. His troponins are negative. No plans for invasive left cardiac catheterization at this time. 7. His LDL goal is less than 55. LDL is 46. Continue statin. 8. The patient does have an SHREYA with a creatinine of 1.6. This is down to 1.3 today and nearing baseline. 9. The patient does have a permanent pacemaker in place. He did bring in his [employer] home device. A download was sent in last night which reportedly shows no events and no episodes yesterday. We are waiting for this transmission to be faxed to our office from the [employer] rep. 10. EF is normal and no significant valve issues 11. No further recommendations from a cardiac standpoint. The patient can be discharged home today from a cardiac standpoint with close follow-up next week or the week after with his primary pyrometer temperature regulator in [facility]. 12. The patient will need to be discharged on the following cardiac medications: Eliquis 5 mg p.o. twice daily, Plavix 75 mg daily, Lasix 40 mg daily, metoprolol 25 mg p.o. twice daily, pravastatin 40 mg nightly and spironolactone 25 mg daily. Stop lisinopril, isosorbide dinitrate and Norvasc. Thank you for the opportunity to help participate in the care of this patient. All recommendations and orders are per Dr. Rob.
--- NOTE | 2024-08-18 10:53 | SW/DCPLANNER ---
Spoke with patient on the phone. Patient stated that he is doing well. Patient stated that he is aware of his upcoming appointments. Patient stated that he was not prescribed any new medicine and that they changed and held some of his medicine. Patient stated that he has no concerns or questions at this time. Jose Camacho
== END 2024-08-17 12:40 | disposition home or self-care (01) ==
LOC: ER 12:18 → ICU 12:19
PROVIDERS: Nurse Practitioner Family; Admitting Provider Internal Medicine Adolescent Medicine; Emergency Provider Emergency Medicine; PCP Internal Medicine Adolescent Medicine; Visit Provider Internal Medicine Adolescent Medicine
DX: R55 Syncope and collapse (principal); I95.9 Hypotension, unspecified; I25.10 Atherosclerotic heart disease of native coronary artery without angina pectoris; E11.9 Type 2 diabetes mellitus without complications; N17.9 Acute kidney failure, unspecified; E66.812 Obesity, class 2; I11.0 Hypertensive heart disease with heart failure; I50.9 Heart failure, unspecified; I48.0 Paroxysmal atrial fibrillation; W01.0XXA Fall on same level from slipping, tripping and stumbling without subsequent striking against object, initial encounter; Y92.019 Unspecified place in single-family (private) house as the place of occurrence of the external cause; Z86.79 Personal history of other diseases of the circulatory system; Z95.0 Presence of cardiac pacemaker; Z79.01 Long term (current) use of anticoagulants; Z79.899 Other long term (current) drug therapy; Z68.39 Body mass index [BMI] 39.0-39.9, adult; Z79.84 Long term (current) use of oral hypoglycemic drugs; Z82.49 Family history of ischemic heart disease and other diseases of the circulatory system; Z86.39 Personal history of other endocrine, nutritional and metabolic disease; Z87.891 Personal history of nicotine dependence; Z88.0 Allergy status to penicillin; Z88.2 Allergy status to sulfonamides; Z88.5 Allergy status to narcotic agent; Z95.5 Presence of coronary angioplasty implant and graft; Z81.1 Family history of alcohol abuse and dependence
CPT/HCPCS: 36415; 70450; 71045; 72125; 80048; 80053; 80061; 80076; 82803; 82962; 83605; 83735; 83880; 84145; 84484; 85025; 85610; 85730; 93005; 93306; 99291; G0378; J7120

== ENCOUNTER 2025-02-15 19:30 | Emergency (ER) | payer MEDICARE, SELFPAY ==
--- OUTSIDE RECORDS SUMMARY | 2024-09-17 17:30 | XMS_ITS ---
Author Organization [facility] Address [address] [place] [address] Care Team Providers Care Fish Technologist Name Role Phone Tod Barraza Primary Care Provider [phone] Tod Barraza Unavailable Unavailable Migration, Provider Unavailable Unavailable Allergies Allergen (clinical drug ingredient) Drug/Non Drug Allergy documented on EMR Reaction Allergy Type Onset Date Status SULFA (uncoded) stomach upset Allergy Active oxycodone oxyCODONE stomach upset Drug Allergy Act humberto Penicillin Unknown Drug Allergy Active REASON FOR VISIT [facility] To [facility] Conversion Encounter Medications Medication SIG (Take, Route, Frequency, Duration) Notes Start Date End Date Status Eliquis 5 MG as directed orally 2 times a day; Duration: 30 day(s) Active Lisinopril 40 MG 1 tab(s) orally once a day; Duration: 90 days Active Nitroglycerin 0.4 MG tablet sublingually every 5 minutes prn prn Active Plavix 75 MG 1 tab(s) orally once a day Active Metoprolol Tartrate 25 MG 1 tab(s) orally 2 times a day Active Spironolactone 50 MG 1/2tab(s) orally once a day; Duration: 30 days Active Isosorbide Mononitrate 20 MG 2 tabs orally 2 times a day Active amLODIPine Besylate 10 MG 1 tab(s) orally once a day; Duration: 30 days Active metFORMIN HCl 500 MG 1 tab(s) orally 2 times a day; Duration: 90 days Active OXYGEN 2 LITERS DIRECTED AT NIGHT; Duration: 30 DAYS *Please review for potential replacement for e-prescription and drug interaction check* 04/23/2023 Active Pravastatin Sodium 40 MG 1 tab(s) orally once a day; Duration: 30 day(s) Active Triamcinolone Acetonide 0.1 % 1 alex applied topically 3 times a day; Duration: 7 days 04/08/2023 Active Furosemide 80 MG 1/2tab(s) orally once a day; Duration: 30 days Active Omeprazole 40 MG 1 cap(s) orally once a day; Duration: 30 day(s) Active Encounters Encounter Location Date Provider Diagnosis [facility] [address] [place], [place] [address] 09/17/2024 Provider Migration Plan Of Treatment No Information Progress Notes * Kenroy CARRIONOB:1955 (69 yo M)Acc No.[id number]:09/17/2024 Patient: Myron XIE Provider: Russ brennan Migration :1955 A ge:69 Y S ex:Male Date:09/17/2024 Address:[address] [place] [address], [place], [id number] Pcp:Tod Barraza Subjective: * Chief Complaints: * 1 . Multum To Medispan Conversion Encounter. * Medical History: * Medications: T aking Plavix 75 MG Tablet 1 tab(s) orally once a day , Taking Metoprolol Tartrate 25 MG Tablet 1 tab(s) orally 2 times a day , Taking Eliquis 5 MG Tablet as directed orally 2 times a day , Taking Nitroglycerin 0.4 MG Tablet Sublingual tablet sublingually every 5 minutes prn , Notes to Pharmacist: prn, Taking Furosemide 80 MG Tablet 1/2tab(s) orally once a day , Taking Omeprazole 40 MG Capsule Delayed Release 1 cap(s) orally once a day , Taking Pravastatin Sodium 40 MG Tablet 1 tab(s) orally once a day , Taking Triamcinolone Acetonide 0.1 % Ointment 1 alex applied topically 3 times a day , Taking OXYGEN 2 LITERS NASAL CANNULA DIRECTED AT NIGHT , Notes to Pharmacist: *Please review for potential replacement for e-prescription and drug interaction check*, Taking amLODIPine Besylate 10 MG Tablet 1 tab(s) orally once a day , Taking metFORMIN HCl 500 MG Tablet 1 tab(s) orally 2 times a day , Taking Spironolactone 50 MG Tablet 1/2tab(s) orally once a day , Taking Isosorbide Mononitrate 20 MG Tablet 2 tabs orally 2 times a day , Taking Lisinopril 40 MG Tablet 1 tab(s) orally once a day * Allergies: P enicillin: Allergy - Criticality High, SULFA: stomach upset - Side Effects, oxyCODONE: stomach upset - Allergy. Objective: * Vitals: Assessment: Plan: * Treatment: * * Electronic signature of Prov ider Migration on 02/15/2025 at 07:36 PM EDT Sign off status: Pending * Provider: Russ brennan Migration Date: 0 09/17/2024 Generated for Kade mccarty/Shey/Gail on: 0 02/15/2025 07:36 PM EDT
--- OUTSIDE RECORDS SUMMARY | 2024-12-14 05:45 | XMS_ITS ---
Author Organization [facility] Address [address] [place], [place] [address] Care Team Providers Care Sample Grinder Name Role Phone Tod Barraza Primary Care Provider [phone] Tod Barraza Unavailable Unavailable REASON FOR VISIT 2 Month F/U Encounters Encounter Location Date Provider Diagnosis [facility] [address] [place], [place] [address] 12/14/2024 Tod Barraza Plan Of Treatment No Information Progress Notes * Kenroy CARRIONOB:1955 (69 yo M)Acc No.[id number]:12/14/2024 Progress Notes Patient: Myron XIE Provider: Spring Barraza MD :1955 A ge:69 Y S ex:Male Date:12/14/2024 Address:[address], [id number] Subjective: * Chief Complaints: * 1 . 2 Month F/U. * Medical History: Objective: * Vitals: Assessment: Plan: * Treatment: * * Electronic signature of Ehsan Barraza MD FAAP on 02/15/2025 at 07:36 PM EDT Sign off status: Pending * Provider: Spring Barraza MD Date: 12/14/2024 Generated for Printi ng/Famaameg/eTransmitting on: 02/15/2025 07:36 PM EDT
--- OUTSIDE RECORDS SUMMARY | 2024-12-21 10:00 | XMS_ITS ---
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 Name Role Phone Tod Barraza Primary Care Provider [phone] Tod Barraza Unavailable Unavailable Shruti Morales Unavailable [phone] Allergies Allergen (clinical drug ingredient) Drug/Non Drug Allergy documented on EMR Reaction Allergy Type Onset Date Status SULFA (uncoded) stomach upset Allergy Active oxycodone oxyCODONE stomach upset Drug Allergy Act humberto Penicillin Unknown Drug Allergy Active Results Component Value Reference Range Notes LIPID PANEL, STANDARD (7600) Reviewed date:12/26/2024 11:37:19 AM Interpretation: Performing Lab:[facility], [facility] [id number] [facility], [facility] [place]KhixHD[address] Kiran Sandy Notes/Report: NON-FASTING; NON-FASTING; NON-FASTING; NON-FASTING; NON-FAST FASTING:YES FASTING: YES CHOLESTEROL, TOTAL 162 <200 mg/dL HDL CHOLESTEROL 40 > OR = 40 mg/dL TRIGLYCERIDES 243 <150 mg/dL If a non-fasting specimen was collected, consider repeat triglyceride testing on a fasting specimen if clinically indicated. [place] et al. J. of Clin. Lipidol. 2015;9:129-169. LDL-CHOLESTEROL 88 Reference range: <100 Desirable range <100 mg/dL for primary prevention; <70 mg/dL for patients with CHD or diabetic patients with > or = 2 CHD risk factors. LDL-C is now calculated using the Daquan-Farnsworth calculation, which is a validated novel method providing better accuracy than the Friedewald equation in the estimation of LDL-C. Daquan SS et al. CHANDRIKA. 2013;310(19): 8056-2768 (http://education.[employer].com/faq/HAJ666) CHOL/HDLC RATIO 4.1 <5.0 (calc) NON HDL CHOLESTEROL 122 <130 mg/dL (calc) For patients with diabetes plus 1 major ASCVD risk factor, treating to a non-HDL-C goal of <100 mg/dL (LDL-C of <70 mg/dL) is considered a therapeutic option. COMPREHENSIVE METABOLIC PANE L (15500) Reviewed date:12/26/2024 11:37:19 AM Interpretation: Performing Lab:[facility], [facility] Dur[address]ame[address] [facility] CenterbenitoInterm[facility] Medical CenterMat lizamaPqqjPN[address] Kiran Sandy Notes/Report: NON-FASTING; NON-FASTING; NON-FASTING; NON-FASTING; NON-FAST FASTING:YES FASTING: YES GLUCOSE 106 65-99 mg/dL Fasting reference interval For someone without known diabetes, a glucose value between 100 and 125 mg/dL is consistent with prediabetes and should be confirmed with a follow-up test. UREA NITROGEN (BUN) 23 7-25 mg/dL CREATININE 1.20 0.70-1.35 mg/dL EGFR 66 > OR = 60 mL/min/1.73m2 BUN/CREATININE RATIO SEE NOTE: 6-22 (calc) Not Reported: BUN and Creatinine are within reference range. SODIUM 137 135-146 mmol/L POTASSIUM 4.7 3.5-5.3 mmol/L CHLORIDE 101 98-110 mmol/L CARBON DIOXIDE 25 20-32 mmol/L CALCIUM 10.5 8.6-10.3 mg/dL PROTEIN, TOTAL 8.0 6.1-8.1 g/dL ALBUMIN 4.7 3.6-5.1 g/dL GLOBULIN 3.3 1.9-3.7 g/dL (calc) ALBUMIN/GLOBULIN RATIO 1.4 1.0-2.5 (calc) BILIRUBIN, TOTAL 0.4 0.2-1.2 mg/dL ALKALINE PHOSPHATASE 79 35-144 U/L AST 15 10-35 U/L ALT 15 9-46 U/L CBC (INCLUDES DIFF/PLT) (639 9) Reviewed date:12/26/2024 11:37:19 AM Interpretation: Performing Lab:[facility] [address], [facility] RochesterBomwCG[address] Kiran Sandy Notes/Report: NON-FASTING; NON-FASTING; NON-FASTING; NON-FASTING; NON-FAST FASTING:YES FASTING: YES WHITE BLOOD CELL COUNT 9.3 3.8-10.8 Thousand/ uL RED BLOOD CELL COUNT 5.44 4.20-5.80 Million/uL HEMOGLOBIN 16.4 13.2-17.1 g/dL HEMATOCRIT 51.0 38.5-50.0 % MCV 93.8 80.0-100.0 fL MCH 30.1 27.0-33.0 pg MCHC 32.2 32.0-36.0 g/dL For adults, a slight decrease in the calculated MCHC value (in the range of 30 to 32 g/dL) is most likely not clinically significant; however, it should be interpreted with caution in correlation with other red cell parameters and the patient's clinical condition. RDW 13.5 11.0-15.0 % PLATELET COUNT 262 140-400 Thousand/uL MPV 9.2 7.5-12.5 fL ABSOLUTE NEUTROPHILS 4976 2716-7118 cells/uL ABSOLUTE LYMPHOCYTES 3190 850-3900 cells/uL ABSOLUTE MONOCYTES 949 200-950 cells/uL ABSOLUTE EOSINOPHILS 140 15-500 cells/uL ABSOLUTE BASOPHILS 47 0-200 cells/uL NEUTROPHILS 53.5 LYMPHOCYTES 34.3 MONOCYTES 10.2 EOSINOPHILS 1.5 BASOPHILS 0.5 HEMOGLOBIN A1c (496) Reviewed date:12/26/2024 11:37:19 AM Interpretation: Performing Lab:[facility] [address] [facility], [facility] CenterZqvsTN[address] Kiran Sandy Notes/Report: NON-FASTING; NON-FASTING; NON-FASTING; NON-FASTING; NON-FAST FASTING:YES FASTING: YES HEMOGLOBIN A1c 7.0 <5.7 % For someone without known diabetes, a hemoglobin A1c value of 6.5% or greater indicates that they may have diabetes and this should be confirmed with a follow-up test. For someone with known diabetes, a value <7% indicates that their diabetes is well controlled and a value greater than or equal to 7% indicates suboptimal control. A1c targets should be individualized based on duration of diabetes, age, comorbid conditions, and other considerations. Currently, no consensus exists regarding use of hemoglobin A1c for diagnosis of diabetes for children. TSH W/REFLEX TO FT4 (11013) Reviewed date:12/26/2024 11:37:19 AM Interpretation: Performing Lab:[facility], [facility] [address], [facility] ClinicQqmgXB[address] Kiran Sandy Notes/Report: NON-FASTING; NON-FASTING; NON-FASTING; NON-FASTING; NON-FAST FASTING:YES FASTING: YES TSH W/REFLEX TO FT4 1.65 0.40-4.50 mIU/L REASON FOR VISIT F/U Medications Medication SIG (Take, Route, Frequency, Duration) Notes Start Date End Date Status amLODIPine Besylate 10 MG 1 tab(s) orall y once a day; Duration: 30 days Not-Takin g metFORMIN HCl 500 MG 1 tab(s) orally 2 t imes a day; Duration: 90 days Active Spironolactone 50 mg TAKE ONE TABLET BY MOUTH 2 TIMES A DAY; Duration: 30 Active Ozempic (0.25 or 0.5 MG/DOSE) 2 MG/3ML 0.25 mg injection subcutaneous once weekly and then increase to 0.5 mg once a week Subcutaneous once a week; Duration: 28 days 12/26/2024 Active OXYGEN 2 LITERS DIRECTED AT NIGHT ; Duration: 30 DAYS prn 04/23/2023 Active Shingrix 50 MCG/0.5ML as directed Intramuscular daily; Duration: 1 days 12/21/2024 Active Omeprazole 40 MG 1 cap(s) orally once a day; Duration: 30 day(s) Active Pravastatin Sodium 40 MG 1 tab(s) orally once a day; Duration: 30 day(s) Active Furosemide 80 MG 1/2tab(s) orally onc e a day; Duration: 30 days Active Triamcinolone Acetonide 0.1 % 1 alex applied topically 3 times a day; Duration: 7 days 04/08/2023 Active Metoprolol Tartrate 25 MG 1 tab(s) orall y 2 times a day Active Eliquis 5 MG as directed orally 2 times a day; Duration: 30 day(s) Active Plavix 75 MG 1 tab(s) orally once a day Active Nitroglycerin 0.4 MG tablet sublingually every 5 minutes prn prn Active Social History Tobacco Use: Social History Observation Description Date Details (start date - stop date) Former Smoker NA - NA Smoking: Question Answer Notes Are you a: former smoker How long has it been since you last smoked? > 10 years Problems Problem Type SNOMED Code ICD Code Onset Dates Problem Status W/U Status Risk Notes Problem Mixed hyperlipidemia (872445189) Mixed hyperlipidemia (E78.2) Active confirmed Vital Signs Temperature 97.2 degrees Fahrenheit 12/22/19 25 Heart Rate 80 /min 12/21/2024 Blood pressure systolic 112 mm Hg 12/22/19 25 Blood pressure diastolic 78 mm Hg 025 Height 70 in 12/21/2024 Weight 295.8 lbs 12/21/2024 BMI 42.44 kg/m2 12/21/2024 Encounters Encounter Location Date Provider Diagnosis [facility] [address] [place] [address] 12/21/2024 Shruti Andrew Type 2 diabetes sarita itus with other specified complication E11.69 ; Atherosclerosis of [place] coronary artery of [place] heart without angina pectoris I25.10 ; Chronic atrial fibrillation I48.20 ; Hypertension, unspecified type I10 ; Encounter for immunization Z23 ; Mixed hyperlipidemia E78.2 and Fatigue, unspecified type R53.83 Assessments Encounter Date Diagnosis (ICD Code) Assessment Notes Treatment Notes Treatment Clinical Notes Section Notes 12/21/2024 Type 2 diabetes mellitus with other specified complication (ICD-10 - E11.69) Patient would benefit from GLP-1 agonist. Counseled him on use. He initially wanted to talk to Dr. Moss about it and then was agreeable. Reviewed indication for medication and that dietary changes as well as exercise are recommended as well. Small, frequent meals recommended. Possible side effects and return precautions reviewed. Patient voices understanding and agrees with the plan of care above. Patient discussed with Attending Dr. Barraza who also talked to patient and agrees with the plan of care above. 12/21/2024 Atherosclerosis [place] coronary artery of [place] heart without angina pectoris (ICD-10 - I25.10) Continue GDMT per Rrts Dr. Moss. Keep follow-up with Cardiology. 12/21/2024 Chronic atrial fibrillation (ICD-10 - I48.20) Defer management to Cardiology. Patient is rate controlled, but still in a fib. He reports failing multiple ablations. Continue BB and anticoag. 12/21/2024 Hypertension, unspecified type (ICD-10 - I10) Controlled, continue current regimen. 12/21/2024 Encounter for immunization (ICD-10 - Z23) 12/21/2024 Mixed hyperlipidemia (ICD-10 - E78.2) I personally will review all labs once final and adjust if needed. Continue current regimen. 12/21/2024 Fatigue, unspecified type (ICD-10 - R53.83) I personally will review all labs once final. Plan Of Treatment Medication Medication Name Sig Start Date Stop Date Notes Ozempic (0.25 or 0.5 MG/DOSE) 2 MG/3ML 0.25 mg injection subcutaneous once weekly and then increase to 0.5 mg once a week Subcutaneous once a week; Duration: 28 days 12/26/2024 Shingrix 50 MCG/0.5ML as directed Intram uscular daily; Duration: 1 days 12/21/2024 Treatment Notes Assessment Notes Type 2 diabetes mellitus wit h other specified complication Patient would benefit from GLP-1 agonist. Counseled him on use. He initially wanted to talk to Dr. Moss about it and then was agreeable. Reviewed indication for medication and that dietary changes as well as exercise are recommended as well. Small, frequent meals recommended. Possible side effects and return precautions reviewed. Patient voices understanding and agrees with the plan of care above. Patient discussed with Attending Dr. Barraza who also talked to patient and agrees with the plan of care above. Atherosclerosis of [place] co ronary artery of [place] heart without angina pectoris Continue GDMT per Rrts Dr. Moss. Keep follow-up with Cardiology. Chronic atrial fibrillation Defer manage ment to Cardiology. Patient is rate controlled, but still in a fib. He reports failing multiple ablations. Continue BB and anticoag. Hypertension, unspecified type Controlle d, continue current regimen. Mixed hyperlipidemia I personally will r eview all labs once final and adjust if needed. Continue current regimen. Fatigue, unspecified type I personally w ill review all labs once final. Next Appt Details Follow Up: 4 Weeks, Reason: Progress Notes * Eric CARRION:1955 (69 yo M)Acc No.[id number]:12/21/2024 Progress Notes Patient: Myron XIE Provider: DHARA Gaston :1955 A ge:69 Y S ex:Male Date:12/21/2024 Address:[address] [place] [address], [facility] [id number] Pcp:Tod Barraza Subjective: * Chief Complaints: * 1 . F/U. * HPI: g en: Patient presents for routine follow-up appt. He reports keeping his follow-up with Dr. Moss with [facility] in [place]. He does not have any medical concerns. Due for labs. * ROS: A LLERGY: no R unny nose. R ESPIRATORY: no S hortness of breath. n o C ough. ? C ARDIOLOGY: no D izziness. n o C hest pain. n o P alpitations. n o L eg edema. n o S hortness of breath. C ONSTITUTIONAL: no L oss of appetite. n o F ever. D ERMATOLOGY: no R lu. E NT: no C ough. n o S ore throat. G ASTROENTEROLOGY: no N ausea. n o V omiting. n o A bdominal pain. n o D iarrhea. n o C onstipation. n o B lood in stool. M USCULOSKELETAL: no J oint stiffness. n o J oint pain. n o J oint swelling. * Medical History: C oronary artery disease s/p 13 stents , type II diabetes, Hypertension, high cholesterol, Degenerative disc disease, COPD, Afib, PAD, Diabetic neuropathy , AAA screen negative normal 11/03, Iron def anemia with negative c-scope and nonerosive GERD 12/04, Bladder Cancer DX- 10/30/23. * Surgical History: x 13 stents , gallbladder , hernia repair- groin , 1 Cardiac stent 08/2023, bladder tumor (cancerous) removal 12/2023. * Hospitalization/Major Diagno stic Procedure: a s listed above , [facility] - Infection , [facility]- Low blood pressure 08/14/24-3/5/25. * Family History: F ather: , diagnosed with Heart Disease. M other: . P aternal Grand Father: , diagnosed with Heart Disease. P aternal Grand Mother: , diagnosed with Heart Disease. M aternal Grand Father: . M aternal Grand Mother: . P aternal uncle: , diagnosed with Heart Disease. P aternal aunt: , diagnosed with Heart Disease. M aternal uncle: , diagnosed with Heart Disease. M aternal aunt: , diagnosed with Heart Disease. S iblings: alive, 3 brother - - heart attackssister- . C hildren: alive. 4 brother(s) , 2 sister(s) . 1 son(s) , 1 daughter(s) - healthy. . * Social History: S moking A re you a: f ormer smoker, H ow long has it been since you last smoked??> 10 years. R ecreational drug use: no. Exercise: yes. Home smoke detector use: yes. Caffeine: yes, frequency:. Living Will: Yes. Alcohol: no. Sexually active: no. Travel outside [place]: no. * Medications: T aking Plavix 75 MG [...] DIRECTED AT NIGHT , Notes to Pharmacist: prn, Taking metFORMIN HCl 500 MG Tablet 1 tab(s) orally 2 times a day , Taking Spironolactone 50 mg Tablet TAKE ONE TABLET BY MOUTH 2 TIMES A DAY , Not-Taking amLODIPine Besylate 10 MG Tablet 1 tab(s) orally once a day , Medication List reviewed and reconciled with the patient * Allergies: P enicillin: Allergy - Criticality High, SULFA: stomach upset - Side Effects, oxyCODONE: stomach upset - Allergy. Objective: * Vitals: N urse:sw, Pain:0, Temp:97.2, RR:18, HR:80, BP:112/78, Ht: 70, Wt:295.8, BMI:42.44. * Examination: G eneral Examination: General P leasant and Cooperative, NAD, large habitus. Oral cavity: M oist membranes. Chest: n ormal shape and expansion. Heart: r ate controlled a fib, No m/r/g, No edema,. Lungs: L ungs clear, No wheezes, crackles or rhonchi, Good air movement,. Abdomen: S oft, nontender, nondistended, no guarding or peritoneal signs.. Neurologic Exam: C N I-XII intact, No focal neurological deficits, equal political analyst strength in hands bilaterally, moving all extremities equally, normal lower leg strength bilaterally, equal dorsi and plantarflexion bilaterally. neck s upple, n o lymphadenopathy,. Psych N ormal Mood/Affect. Assessment: * Assessment: 1. T ype 2 diabetes mellitus with other specified complication - E11.69 (Primary) ?2. A therosclerosis of [place] coronary artery of [place] heart without angina pectoris - I25.10 3 . C hronic atrial fibrillation - I48.20 4 . H ypertension, unspecified type - I10 5 . E ncounter for immunization - Z23 ?6. M ixed hyperlipidemia - E78.2 7 . F atigue, unspecified type - R53.83? Plan: * Treatment: Value Reference Range T RIGLYCERIDES 243 H <150 - mg/dL * C HOLESTEROL, TOTAL 162 <200 - mg/dL * H DL CHOLESTEROL 40 > OR = 40 - mg/dL * L DL-CHOLESTEROL 88 - mg/dL (calc) * C HOL/HDLC RATIO 4.1 <5.0 - (calc) * N ON HDL CHOLESTEROL 122 <130 - mg/dL (calc) * Shruti Morales 12/26/2024 11:34:33 AM EDT > I personally called patient discussing normal/ stable labs except his HA1C has increased to 7.0. He has talked to his Rrts and agrees with Ozempic pending cost. Sent script to pharmacy [facility]. Follow-up in 4 weeks. Patient voices understanding and agrees with the plan of care above. ?LAB: COMPREHENSIVE METABOLIC PANEL (72502) (Collection Date & Time - 12/21/2024 02:54 PM)* Value Reference Range G LUCOSE 106 H 65-99 - mg/dL * U PREM NITROGEN (BUN) 23 7-25 - mg/dL * C REATININE 1.20 0.70-1.35 - mg/dL * B UN/CREATININE RATIO SEE NOTE: 12-04 - (calc) * S ODIUM 137 135-146 - mmol/L * P OTASSIUM 4.7 3.5-5.3 - mmol/L * C HLORIDE 101 98-110 - mmol/L * C ARBON DIOXIDE 25 20-32 - mmol/L * C ALCIUM 10.5 H 8.6-10.3 - mg/dL * P ROTEIN, TOTAL 8.0 6.1-8.1 - g/dL * A LBUMIN 4.7 3.6-5.1 - g/dL * G LOBULIN 3.3 1.9-3.7 - g/dL (calc ) * A LBUMIN/GLOBULIN RATIO 1.4 1.0-2.5 - (calc) * B ILIRUBIN, TOTAL 0.4 0.2-1.2 - mg/dL * A LKALINE PHOSPHATASE 79 35-144 - U/L * A ST 15 10-35 - U/L * A LT 15 9-46 - U/L * E GFR 66 > OR = 60 - mL/min/1 .73m2 * Shruti Morales 12/26/2024 11:34:33 AM EDT > I personally called patient discussing normal/ stable labs except his HA1C has increased to 7.0. He has talked to his Rrts and agrees with Ozempic pending cost. Sent script to pharmacy [place]. Follow-up in 4 weeks. Patient voices understanding and agrees with the plan of care above. ?LAB: CBC (INCLUDES DIFF/PLT) (5799) (Collection Date & Time - 12/21/2024 02:54 PM)* Value Reference Range W RY BLOOD CELL COUNT 9.3 3.8-10.8 - Thousan d/uL * R ED BLOOD CELL COUNT 5.44 4.20-5.80 - Million/ uL * H EMOGLOBIN 16.4 13.2-17.1 - g/dL * H EMATOCRIT 51.0 H 38.5-50.0 - % * M CV 93.8 80.0-100.0 - fL * M CH 30.1 27.0-33.0 - pg * M CHC 32.2 32.0-36.0 - g/dL * R DW 13.5 11.0-15.0 - % * P LATELET COUNT 262 140-400 - Thousand/u L * N EUTROPHILS 53.5 - % * A BSOLUTE NEUTROPHILS 4976 9726-7166 - cells/uL * L YMPHOCYTES 34.3 - % * A BSOLUTE LYMPHOCYTES 3190 850-3900 - cells/uL * M ONOCYTES 10.2 - % * A BSOLUTE MONOCYTES 949 200-950 - cells/uL * E OSINOPHILS 1.5 - % * A BSOLUTE EOSINOPHILS 140 15-500 - cells/uL * B ASOPHILS 0.5 - % * A BSOLUTE BASOPHILS 47 0-200 - cells/uL * M PV 9.2 7.5-12.5 - fL * Shruti Morales 12/26/2024 11:34:33 AM EDT > I personally called patient discussing normal/ stable labs except his HA1C has increased to 7.0. He has talked to his Rrts and agrees with Ozempic pending cost. Sent script to pharmacy [facility]. Follow-up in 4 weeks. Patient voices understanding and agrees with the plan of care above. ?LAB: HEMOGLOBIN A1c (496) (Collection Date & Time - 12/21/2024 02:54 PM)* Value Reference Range H EMOGLOBIN A1c 7.0 H <5.7 - % * Shruti Morales 12/26/2024 11:34:33 AM EDT > I personally called patient discussing normal/ stable labs except his HA1C has increased to 7.0. He has talked to his Rrts and agrees with Ozempic pending cost. Sent script to pharmacy [place]. Follow-up in 4 weeks. Patient voices understanding and agrees with the plan of care above. Notes: Patient would benefit from GLP-1 agonist. Counseled him on use. He initially wanted to talk to Dr. Moss about it and then was agreeable. Reviewed indication for medication and that dietary changes as well as exercise are recommended as well. Small, frequent meals recommended. Possible side effects and return precautions reviewed. Patient voices understanding and agrees with the plan of care above. Patient discussed with Attending Dr. Barraza who also talked to patient and agrees with the plan of care above.??2.?Atherosclerosis of [place] coronary artery of [place] heart without angina pectoris?LAB: LIPID PANEL, STANDARD (7600) (Collection Date & Time - 12/21/2024 02:54 PM)* Value Reference Range T RIGLYCERIDES 243 H <150 - mg/dL * C HOLESTEROL, TOTAL 162 <200 - mg/dL * H DL CHOLESTEROL 40 > OR = 40 - mg/dL * L DL-CHOLESTEROL 88 - mg/dL (calc) * C HOL/HDLC RATIO 4.1 <5.0 - (calc) * N ON HDL CHOLESTEROL 122 <130 - mg/dL (calc) * Shruti Morales 12/26/2024 11:34:33 AM EDT > I personally called patient discussing normal/ stable labs except his HA1C has increased to 7.0. He has talked to his Rrts and agrees with Ozempic pending cost. Sent script to pharmacy [facility]. Follow-up in 4 weeks. Patient voices understanding and agrees with the plan of care above. ?LAB: COMPREHENSIVE METABOLIC PANEL (90912) (Collection Date & Time - 12/21/2024 02:54 PM)* Value Reference Range G LUCOSE 106 H 65-99 - mg/dL * U PREM NITROGEN (BUN) 23 7-25 - mg/dL * C REATININE 1.20 0.70-1.35 - mg/dL * B UN/CREATININE RATIO SEE NOTE: 6-22 - (calc) * S ODIUM 137 135-146 - mmol/L * P OTASSIUM 4.7 3.5-5.3 - mmol/L * C HLORIDE 101 98-110 - mmol/L * C ARBON DIOXIDE 25 20-32 - mmol/L * C ALCIUM 10.5 H 8.6-10.3 - mg/dL * P ROTEIN, TOTAL 8.0 6.1-8.1 - g/dL * A LBUMIN 4.7 3.6-5.1 - g/dL * G LOBULIN 3.3 1.9-3.7 - g/dL (calc ) * A LBUMIN/GLOBULIN RATIO 1.4 1.0-2.5 - (calc) * B ILIRUBIN, TOTAL 0.4 0.2-1.2 - mg/dL * A LKALINE PHOSPHATASE 79 35-144 - U/L * A ST 15 10-35 - U/L * A LT 15 9-46 - U/L * E GFR 66 > OR = 60 - mL/min/1 .73m2 * Andrew Shruti Joni 12/26/2024 11:34:33 AM EDT > I personally called patient discussing normal/ stable labs except his HA1C has increased to 7.0. He has talked to his Rrts and agrees with Ozdaronic pending cost. Sent script to [facility]. Follow-up in 4 weeks. Patient voices understanding and agrees with the plan of care above. ?LAB: CBC (INCLUDES DIFF/PLT) (6399) (Collection Date & Time - 12/21/2024 02:54 PM)* Value Reference Range W RY BLOOD CELL COUNT 9.3 3.8-10.8 - Thousan d/uL * R ED BLOOD CELL COUNT 5.44 4.20-5.80 - Million/ uL * H EMOGLOBIN 16.4 13.2-17.1 - g/dL * H EMATOCRIT 51.0 H 38.5-50.0 - % * M CV 93.8 80.0-100.0 - fL * M CH 30.1 27.0-33.0 - pg * M CHC 32.2 32.0-36.0 - g/dL * R DW 13.5 11.0-15.0 - % * P LATELET COUNT 262 140-400 - Thousand/u L * N EUTROPHILS 53.5 - % * A BSOLUTE NEUTROPHILS 4976 0349-5967 - cells/uL * L YMPHOCYTES 34.3 - % * A BSOLUTE LYMPHOCYTES 3190 850-3900 - cells/uL * M ONOCYTES 10.2 - % * A BSOLUTE MONOCYTES 949 200-950 - cells/uL * E OSINOPHILS 1.5 - % * A BSOLUTE EOSINOPHILS 140 15-500 - cells/uL * B ASOPHILS 0.5 - % * A BSOLUTE BASOPHILS 47 0-200 - cells/uL * M PV 9.2 7.5-12.5 - fL * Shruti Morales 12/26/2024 11:34:33 AM EDT > I personally called patient discussing normal/ stable labs except his HA1C has increased to 7.0. He has talked to his Rrts and agrees with Ozempic pending cost. Sent script to pharmacy [facility]. Follow-up in 4 weeks. Patient voices understanding and agrees with the plan of care above. ?LAB: HEMOGLOBIN A1c (496) (Collection Date & Time - 12/21/2024 02:54 PM)* Value Reference Range H EMOGLOBIN A1c 7.0 H <5.7 - % * MoralesHazel dardenah Joni 12/26/2024 11:34:33 AM EDT > I personally called patient discussing normal/ stable labs except his HA1C has increased to 7.0. He has talked to his Rrts and agrees with Ozempic pending cost. Sent script to pharmacy [facility]. Follow-up in 4 weeks. Patient voices understanding and agrees with the plan of care above. Notes: Continue GDMT per Rrts Dr. Moss. Keep follow-up with Cardiology.??3.?Chronic atrial fibrillation?LAB: LIPID PANEL, STANDARD (7600) (Collection Date & Time - 12/21/2024 02:54 PM)* Value Reference Range T RIGLYCERIDES 243 H <150 - mg/dL * C HOLESTEROL, TOTAL 162 <200 - mg/dL * H DL CHOLESTEROL 40 > OR = 40 - mg/dL * L DL-CHOLESTEROL 88 - mg/dL (calc) * C HOL/HDLC RATIO 4.1 <5.0 - (calc) * N ON HDL CHOLESTEROL 122 <130 - mg/dL (calc) * Shruti Morales 12/26/2024 11:34:33 AM EDT > I personally called patient discussing normal/ stable labs except his HA1C has increased to 7.0. He has talked to his Rrts and agrees with Ozempic pending cost. Sent script to pharmacy [facility]. Follow-up in 4 weeks. Patient voices understanding and agrees with the plan of care above. ?LAB: COMPREHENSIVE METABOLIC PANEL (14042) (Collection Date & Time - 12/21/2024 02:54 PM)* Value Reference Range G LUCOSE 106 H 65-99 - mg/dL * U PREM NITROGEN (BUN) 23 7-25 - mg/dL * C REATININE 1.20 0.70-1.35 - mg/dL * B UN/CREATININE RATIO SEE NOTE: 6-22 - (calc) * S ODIUM 137 135-146 - mmol/L * P OTASSIUM 4.7 3.5-5.3 - mmol/L * C HLORIDE 101 98-110 - mmol/L * C ARBON DIOXIDE 25 20-32 - mmol/L * C ALCIUM 10.5 H 8.6-10.3 - mg/dL * P ROTEIN, TOTAL 8.0 6.1-8.1 - g/dL * A LBUMIN 4.7 3.6-5.1 - g/dL * G LOBULIN 3.3 1.9-3.7 - g/dL (calc ) * A LBUMIN/GLOBULIN RATIO 1.4 1.0-2.5 - (calc) * B ILIRUBIN, TOTAL 0.4 0.2-1.2 - mg/dL * A LKALINE PHOSPHATASE 79 35-144 - U/L * A ST 15 10-35 - U/L * A LT 15 9-46 - U/L * E GFR 66 > OR = 60 - mL/min/1 .73m2 * Shruti Morales 12/26/2024 11:34:33 AM EDT > I personally called patient discussing normal/ stable labs except his HA1C has increased to 7.0. He has talked to his Rrts and agrees with Ozempic pending cost. Sent script to pharmacy [facility]. Follow-up in 4 weeks. Patient voices understanding and agrees with the plan of care above. ?LAB: CBC (INCLUDES DIFF/PLT) (6399) (Collection Date & Time - 12/21/2024 02:54 PM)* Value Reference Range W RY BLOOD CELL COUNT 9.3 3.8-10.8 - [place] d/uL * R ED BLOOD CELL COUNT 5.44 4.20-5.80 - Million/ uL * H EMOGLOBIN 16.4 13.2-17.1 - g/dL * H EMATOCRIT 51.0 H 38.5-50.0 - % * M CV 93.8 80.0-100.0 - fL * M CH 30.1 27.0-33.0 - pg * M CHC 32.2 32.0-36.0 - g/dL * R DW 13.5 11.0-15.0 - % * P LATELET COUNT 262 140-400 - Thousand/u L * N EUTROPHILS 53.5 - % * A BSOLUTE NEUTROPHILS 4976 [id number] - cells/uL * L YMPHOCYTES 34.3 - % * A BSOLUTE LYMPHOCYTES 3190 850-3900 - cells/uL * M ONOCYTES 10.2 - % * A BSOLUTE MONOCYTES 949 200-950 - cells/uL * E OSINOPHILS 1.5 - % * A BSOLUTE EOSINOPHILS 140 15-500 - cells/uL * B ASOPHILS 0.5 - % * A BSOLUTE BASOPHILS 47 0-200 - cells/uL * M PV 9.2 7.5-12.5 - fL * Shruti Morales 12/26/2024 11:34:33 AM EDT > I personally called patient discussing normal/ stable labs except his HA1C has increased to 7.0. He has talked to his Rrts and agrees with Ozempic pending cost. Sent script to pharmacy [facility]. Follow-up in 4 weeks. Patient voices understanding and agrees with the plan of care above. ?LAB: HEMOGLOBIN A1c (496) (Collection Date & Time - 12/21/2024 02:54 PM)* Value Reference Range H EMOGLOBIN A1c 7.0 H <5.7 - % * Shruti Morales 12/26/2024 11:34:33 AM EDT > I personally called patient discussing normal/ stable labs except his HA1C has increased to 7.0. He has talked to his Rrts and agrees with Ozempic pending cost. Sent script to pharmacy [facility]. Follow-up in 4 weeks. Patient voices understanding and agrees with the plan of care above. Notes: Defer management to Cardiology. Patient is rate controlled, but still in a fib. He reports failing multiple ablations. Continue BB and anticoag.?? 4.?Hypertension, unspecified type?LAB: LIPID PANEL, STANDARD (7600) (Collection Date & Time - 12/21/2024 02:54 PM)* Value Reference Range T RIGLYCERIDES 243 H <150 - mg/dL * C HOLESTEROL, TOTAL 162 <200 - mg/dL * H DL CHOLESTEROL 40 > OR = 40 - mg/dL * L DL-CHOLESTEROL 88 - mg/dL (calc) * C HOL/HDLC RATIO 4.1 <5.0 - (calc) * N ON HDL CHOLESTEROL 122 <130 - mg/dL (calc) * Andrew Shruti Joni 12/26/2024 11:34:33 AM EDT > I personally called patient discussing normal/ stable labs except his HA1C has increased to 7.0. He has talked to his Rrts and agrees with Ozempic pending cost. Sent script to [facility]. Follow-up in 4 weeks. Patient voices understanding and agrees with the plan of care above. ?LAB: COMPREHENSIVE METABOLIC PANEL (14241) (Collection Date & Time - 12/21/2024 02:54 PM)* Value Reference Range G LUCOSE 106 H 65-99 - mg/dL * U PREM NITROGEN (BUN) 23 7-25 - mg/dL * C REATININE 1.20 0.70-1.35 - mg/dL * B UN/CREATININE RATIO SEE NOTE: 6-22 - (calc) * S ODIUM 137 135-146 - mmol/L * P OTASSIUM 4.7 3.5-5.3 - mmol/L * C HLORIDE 101 98-110 - mmol/L * C ARBON DIOXIDE 25 20-32 - mmol/L * C ALCIUM 10.5 H 8.6-10.3 - mg/dL * P ROTEIN, TOTAL 8.0 6.1-8.1 - g/dL * A LBUMIN 4.7 3.6-5.1 - g/dL * G LOBULIN 3.3 1.9-3.7 - g/dL (calc ) * A LBUMIN/GLOBULIN RATIO 1.4 1.0-2.5 - (calc) * B ILIRUBIN, TOTAL 0.4 0.2-1.2 - mg/dL * A LKALINE PHOSPHATASE 79 35-144 - U/L * A ST 15 10-35 - U/L * A LT 15 9-46 - U/L * E GFR 66 > OR = 60 - mL/min/1 .73m2 * Shruti Morales 12/26/2024 11:34:33 AM EDT > I personally called patient discussing normal/ stable labs except his HA1C has increased to 7.0. He has talked to his Rrts and agrees with Ozempic pending cost. Sent script to [facility]. Follow-up in 4 weeks. Patient voices understanding and agrees with the plan of care above. ?LAB: CBC (INCLUDES DIFF/PLT) (6399) (Collection Date & Time - 12/21/2024 02:54 PM)* Value Reference Range W RY BLOOD CELL COUNT 9.3 3.8-10.8 - [place] d/uL * R ED BLOOD CELL COUNT 5.44 4.20-5.80 - Million/ uL * H EMOGLOBIN 16.4 13.2-17.1 - g/dL * H EMATOCRIT 51.0 H 38.5-50.0 - % * M CV 93.8 80.0-100.0 - fL * M CH 30.1 27.0-33.0 - pg * M CHC 32.2 32.0-36.0 - g/dL * R DW 13.5 11.0-15.0 - % * P LATELET COUNT 262 140-400 - Thousand/u L * N EUTROPHILS 53.5 - % * A BSOLUTE NEUTROPHILS 4976 [id number] - cells/uL * L YMPHOCYTES 34.3 - % * A BSOLUTE LYMPHOCYTES 3190 850-3900 - cells/uL * M ONOCYTES 10.2 - % * A BSOLUTE MONOCYTES 949 200-950 - cells/uL * E OSINOPHILS 1.5 - % * A BSOLUTE EOSINOPHILS 140 15-500 - cells/uL * B ASOPHILS 0.5 - % * A BSOLUTE BASOPHILS 47 0-200 - cells/uL * M PV 9.2 7.5-12.5 - fL * Shruti Morales 12/26/2024 11:34:33 AM EDT > I personally called patient discussing normal/ stable labs except his HA1C has increased to 7.0. He has talked to his Rrts and agrees with Ozempic pending cost. Sent script to pharmacy [facility]. Follow-up in 4 weeks. Patient voices understanding and agrees with the plan of care above. ?LAB: HEMOGLOBIN A1c (496) (Collection Date & Time - 12/21/2024 02:54 PM)* Value Reference Range H EMOGLOBIN A1c 7.0 H <5.7 - % * Shruti Morales 12/26/2024 11:34:33 AM EDT > I personally called patient discussing normal/ stable labs except his HA1C has increased to 7.0. He has talked to his Rrts and agrees with Ozempic pending cost. Sent script to pharmacy [facility]. Follow-up in 4 weeks. Patient voices understanding and agrees with the plan of care above. Notes: Controlled, continue current regimen.??5.?Encounter for immunization? Start Shingrix Suspension Reconstituted, 50 MCG/0.5ML, as directed, Intramuscular, daily, 1 days, 1, Refills 0.??6.?Mixed hyperlipidemia?LAB: LIPID PANEL, STANDARD (7600) (Collection Date & Time - 12/21/2024 02:54 PM)* Value Reference Range T RIGLYCERIDES 243 H <150 - mg/dL * C HOLESTEROL, TOTAL 162 <200 - mg/dL * H DL CHOLESTEROL 40 > OR = 40 - mg/dL * L DL-CHOLESTEROL 88 - mg/dL (calc) * C HOL/HDLC RATIO 4.1 <5.0 - (calc) * N ON HDL CHOLESTEROL 122 <130 - mg/dL (calc) * Shruti Morales 12/26/2024 11:34:33 AM EDT > I personally called patient discussing normal/ stable labs except his HA1C has increased to 7.0. He has talked to his Rrts and agrees with Ozempic pending cost. Sent script to pharmacy [facility]. Follow-up in 4 weeks. Patient voices understanding and agrees with the plan of care above. ?LAB: COMPREHENSIVE METABOLIC PANEL (47072) (Collection Date & Time - 12/21/2024 02:54 PM)* Value Reference Range G LUCOSE 106 H 65-99 - mg/dL * U PREM NITROGEN (BUN) 23 7-25 - mg/dL * C REATININE 1.20 0.70-1.35 - mg/dL * B UN/CREATININE RATIO SEE NOTE: 6-22 - (calc) * S ODIUM 137 135-146 - mmol/L * P OTASSIUM 4.7 3.5-5.3 - mmol/L * C HLORIDE 101 98-110 - mmol/L * C ARBON DIOXIDE 25 20-32 - mmol/L * C ALCIUM 10.5 H 8.6-10.3 - mg/dL * P ROTEIN, TOTAL 8.0 6.1-8.1 - g/dL * A LBUMIN 4.7 3.6-5.1 - g/dL * G LOBULIN 3.3 1.9-3.7 - g/dL (calc ) * A LBUMIN/GLOBULIN RATIO 1.4 1.0-2.5 - (calc) * B ILIRUBIN, TOTAL 0.4 0.2-1.2 - mg/dL * A LKALINE PHOSPHATASE 79 35-144 - U/L * A ST 15 10-35 - U/L * A LT 15 9-46 - U/L * E GFR 66 > OR = 60 - mL/min/1 .73m2 * Shruti Morales 12/26/2024 11:34:33 AM EDT > I personally called patient discussing normal/ stable labs except his HA1C has increased to 7.0. He has talked to his Rrts and agrees with Ozempic pending cost. Sent script to [facility]. Follow-up in 4 weeks. Patient voices understanding and agrees with the plan of care above. ?LAB: CBC (INCLUDES DIFF/PLT) (6399) (Collection Date & Time - 12/21/2024 02:54 PM)* Value Reference Range W RY BLOOD CELL COUNT 9.3 3.8-10.8 - [place] d/uL * R ED BLOOD CELL COUNT 5.44 4.20-5.80 - Million/ uL * H EMOGLOBIN 16.4 13.2-17.1 - g/dL * H EMATOCRIT 51.0 H 38.5-50.0 - % * M CV 93.8 80.0-100.0 - fL * M CH 30.1 27.0-33.0 - pg * M CHC 32.2 32.0-36.0 - g/dL * R DW 13.5 11.0-15.0 - % * P LATELET COUNT 262 140-400 - Thousand/u L * N EUTROPHILS 53.5 - % * A BSOLUTE NEUTROPHILS 4976 7394-8803 - cells/uL * L YMPHOCYTES 34.3 - % * A BSOLUTE LYMPHOCYTES 3190 850-3900 - cells/uL * M ONOCYTES 10.2 - % * A BSOLUTE MONOCYTES 949 200-950 - cells/uL * E OSINOPHILS 1.5 - % * A BSOLUTE EOSINOPHILS 140 15-500 - cells/uL * B ASOPHILS 0.5 - % * A BSOLUTE BASOPHILS 47 0-200 - cells/uL * M PV 9.2 7.5-12.5 - fL * Shruti Morales 12/26/2024 11:34:33 AM EDT > I personally called patient discussing normal/ stable labs except his HA1C has increased to 7.0. He has talked to his Rrts and agrees with Ozempic pending cost. Sent script to [facility]. Follow-up in 4 weeks. Patient voices understanding and agrees with the plan of care above. ?LAB: HEMOGLOBIN A1c (496) (Collection Date & Time - 12/21/2024 02:54 PM)* Value Reference Range H EMOGLOBIN A1c 7.0 H <5.7 - % * Shruti Morales 12/26/2024 11:34:33 AM EDT > I personally called patient discussing normal/ stable labs except his HA1C has increased to 7.0. He has talked to his Rrts and agrees with Ozempic pending cost. Sent script to pharmacy [facility]. Follow-up in 4 weeks. Patient voices understanding and agrees with the plan of care above. Notes: I personally will review all labs once final and adjust if needed. Continue current regimen. ?7.?Fatigue, unspecified type?LAB: TSH W/REFLEX TO FT4 (75654) (Collection Date & Time - 12/21/2024 02:54 PM)* Value Reference Range T SH W/REFLEX TO FT4 1.65 0.40-4.50 - mIU/L * Shruti Morales 12/26/2024 11:34:33 AM EDT > I personally called patient discussing normal/ stable labs except his HA1C has increased to 7.0. He has talked to his Rrts and agrees with Ozempic pending cost. Sent script to pharmacy [facility]. Follow-up in 4 weeks. Patient voices understanding and agrees with the plan of care above. Notes: I personally will review all labs once final.?? * Follow Up: 4 Weeks * * Sign off status: Completed true * Provider: DHARA Gaston Date: 0 12/21/2024 Generated for Kade mccarty/Shey/eTransmitting on: 0 02/15/2025 07:36 PM EDT History and Physical Notes * HPI (History of Present Illness) Category Sub-Category Detail Notes Category Not es gen Patient present s for routine follow-up appt. He reports keeping his follow-up with Dr. Moss with [facility] in [place]. He does not have any medical concerns. Due for labs. Examination Category Sub-Category Detail Notes Category Not es General Examination Heart: rate control led a fib, No m/r/g, No edema, Lungs: Lungs clear, No whee zes, crackles or rhonchi, Good air movement, Abdomen: Soft, nontender, non distended, no guarding or peritoneal signs. 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
--- OUTSIDE RECORDS SUMMARY | 2025-01-25 07:15 | XMS_ITS ---
Author Organization [facility] Address [address] [place] [address] Care Team Providers Care Rate Clerk Passenger Name Role Phone Tod Barraza Primary Care Provider [phone] Tod Barraza Unavailable Unavailable REASON FOR VISIT Med Ck per [facility] Encounters Encounter Location Date Provider Diagnosis [facility] [address] [place], [place] [address] 01/25/2025 Tod Barraza Plan Of Treatment No Information Progress Notes * Kenroy CARRIONOB:1955 (69 yo M)Acc No.[id number]:01/25/2025 Progress Notes Patient: Myron XIE Provider: Spring Barraza MD :1955 A ge:69 Y S ex:Male Date:01/25/2025 Address:[address], [id number] Subjective: * Chief Complaints: * 1 . Med Ck per [facility]. * Medical History: Objective: * Vitals: Assessment: Plan: * Treatment: * * Electronic signature of Ehsan Barraza MD FAAP on 02/15/2025 at 07:36 PM EDT Sign off status: Pending * Provider: Spring Barraza MD Date: 0 01/25/2025 Generated for Printi ng/Fateresa/eTransmitting on: 0 02/15/2025 07:36 PM EDT
[2025-02-15] VITALS (7 sets, daily range): BP systolic 132–145; BP diastolic 74–93; PULSE 66–78; RESP 12–19; TEMP 36.8; O2SAT 95–96; BMI 36.9
--- NOTE | 2025-02-15 19:30 | ECG_ITS ---
APPROVED REPORT Exam: Resting ECG HR:78 bpm ECG Measurements Heart Rate 78 AXES QRSd 185 QRS 268 QT 432 T 92 QTc 466 Conclusion ELECTRONIC VENTRICULAR PACEMAKER ABNORMAL RHYTHM ECG UNCONFIRMED REPORT Ventricularly paced rhythm. No STEMI based on Sgarbossa criteria Electronically signed by : EDWINA SMITH, 02/16/2025 00:56:20
--- NOTE | 2025-02-15 19:35 | [facility].EDCP ---
Discharge Plan Disposition Patient Disposition: Home, Self-Care Prescriptions Prescriptions: No Action nitroglycerin 0.4 mg tablet, sublingual 0.4 mg sublingual Q5MINP PRN (Reason: Chest Pain) lisinopril 40 mg tablet 40 mg PO DAILY metoprolol tartrate 25 mg tablet 25 mg PO BID (DME) Diabetic Shoes (DME) Misc See Rx Instructions .ROUTE .MEDSUPPLY Qty: 1 0RF Rx Instructions: [facility] Please dispense ONE (1) pair of Diabetic Shoes with inserts ammonium lactate 12 % cream 1 applic topical BID 30 Days Qty: 385 2RF mupirocin 2 % ointment 1 applic topical BID 14 Days Qty: 22 1RF Eliquis 5 mg tablet 5 mg PO BID clopidogrel [Plavix] 75 mg tablet 75 mg PO DAILY metformin 500 MG tablet 500 mg PO BIDWMEAL omeprazole 40 MG capsule,delayed release(DR/EC) 40 mg PO DAILY isosorbide dinitrate 30 MG tablet 60 mg PO BID pravastatin 40 MG tablet 40 mg PO HS furosemide 80 mg tablet 40 mg PO DAILY 30 Days Qty: 0 0RF spironolactone [Aldactone] 50 mg Tablet 25 mg PO DAILY 30 Days Qty: 0 0RF Referrals Follow up/Referrals: Provider,Referral, MD [Referring, Medical] - See instructions Activity Restrictions/Add. Instructions Additional Instructions/Restrictions: Follow-up with your special warfare operator and primary care doctor closely. If you develop any new or worsening symptoms, or if you become concerned for your health for any reason, return to the emergency department for evaluation Clinical Impressions Clinical Impression: Chest pain Print Language Print Language: Romanian Discharge ED Provider: Colton Palacios HPI <Padmini Agustin - Last Filed: 02/15/25 21:52> General Chief Complaint: Chest Pain Stated Complaint: chest pain Time Seen by Provider: 02/15/25 19:35 History of Present Illness HPI narrative: 69-year-old male with with extensive cardiac history including numerous stents presents the emergency department complaints of intermittent chest pain for the last 5 days. He reports that he ran out of his Eliquis approximately 1 week ago. He states that he did take 1 sublingual nitro prior to arrival with relief of symptoms. Upon arrival to the emergency department he currently denies any chest pain. He reports he has been taking all of the medications as prescribed. He denies shortness of breath or fevers Related Data Home Medications ?Medication ?Instructions ?Recorded ?Confirmed isosorbide dinitrate 30 mg tablet 60 mg PO BID 08/01/19 12/21/24 Held on 08/17/24. Instructions: Pending follow-up with cardiology and reevaluation of blood pressure metformin 500 mg tablet 500 mg PO BIDWMEAL Diabetes 08/01/19 12/21/24 omeprazole 40 mg capsule,delayed 40 mg PO DAILY 08/01/19 12/21/24 release pravastatin 40 mg tablet 40 mg PO HS Cholesterol 11/26/21 12/21/24 apixaban 5 mg tablet (Eliquis) 5 mg PO BID Blood thinner 04/23/23 12/21/24 nitroglycerin 0.4 mg sublingual 0.4 mg sublingual Q5MINP PRN Chest 04/23/23 12/21/24 tablet Pain lisinopril 40 mg tablet 40 mg PO DAILY 07/23/23 12/21/24 Held on 08/17/24. Instructions: Pending follow-up with cardiology and reevaluation of blood pressure metoprolol tartrate 25 mg tablet 25 mg PO BID 07/23/23 12/21/24 clopidogrel 75 mg tablet (Plavix) 75 mg PO DAILY 10/21/23 12/21/24 Previous Rx's ?Medication ?Instructions ?Recorded furosemide 80 mg tablet 40 mg (1/2 x 80 mg) PO DAILY 30 08/17/24 days #0 tabs spironolactone 50 mg tablet 25 mg (1/2 x 50 mg) PO DAILY 30 08/17/24 (Aldactone) days #0 tabs Diabetic Shoes (DME) #1 ea 12/21/24 ammonium lactate 12 % topical cream 1 applic topical BID dry skin, 12/21/24 callus care 30 days #385 grams mupirocin 2 % topical ointment 1 applic topical BID infection 14 12/21/24 days #22 grams Allergies Allergy/AdvReac Type Severity Reaction Status Date / Time Penicillins Allergy Severe Anaphylaxis Verified 12/21/24 15:32 oxycodone Allergy Hives Verified 12/21/24 15:32 Sulfa (Sulfonamide Allergy Rash Verified 12/21/24 15:32 Antibiotics) [facility] <Padmini Agustin - Last Filed: 02/15/25 21:52> [facility] Disclaimer: The information contained in this section may have been updated after the patient was seen, as this information can be updated by other users. Medical History Edema of both lower extremities SHREYA (acute kidney injury) Acute hypotension Episode of syncope Family history of OK (myocardial infarction) History of bladder cancer History of BPH History of atrial fibrillation History of pacemaker History of hyperlipidemia History of hypertension History of bladder cancer CAD (coronary artery disease) Asthma Diabetes type 2, controlled Surgical History History of coronary artery stent placement History of coronary artery stent placement 14 stents No pertinent past surgical history Family History Brother Coronary artery disease Alcoholism Heart attack Hypertension Father Diabetes Coronary artery disease Heart attack Hypertension Asthma Mother Coronary artery disease Heart attack Hypertension Sister Coronary artery disease Heart attack Hypertension Other History of bladder surgery History of cholecystectomy History of hernia repair Social History Smoking Status: Never smoker alcohol intake: never substance use type: denies use current occupational status: retired Travel in the last 8 weeks?: None housing: house caffeine: Yes Have you lived/traveled outside [place] in past 30 days?: No Contact w/someone who lives/traveled outside [place] past 30 days?: No Exposure to someone with infectious disease in past 14 days?: No Do you have a fever (greater than 100.4 F or 38 C)?: No Have you tested positive for COVID-19?: No Exposed to someone with COVID-19 in past 14 days?: No Do you have a sore throat?: No Do you have a cough?: No Do you have any weakness?: No Do you have any diarrhea?: No Are you experiencing any unusual bleeding?: No Do you have any muscle aches/pain?: No Do you have any abdominal pain?: No Are you experiencing loss of taste or smell?: No Other Medical History Have you received the Flu Vaccine for this season: No Have you received the Pneumonia Vaccine: Yes <Padmini Agustin - Last Filed: 02/15/25 21:52> ROS Obtained: Yes other Cardiovascular Cardiovascular: Reports chest pain Physical Exam <Padmini Agustin [employer] Filed: 02/15/25 21:52> Narrative Physical exam: General: Awake, aware, in no acute distress HEENT: Normocephalic, no evidence of trauma CV: RRR, no murmurs, rubs, or gallops. 1+ pitting edema to bilateral lower extremities Pulm: CTA bilaterally with no rhonchi, rales, wheezes ABD: Nontender, no swelling, guarding, or rebound tenderness Psych, appropriate mood and affect General General appearance: alert Respiratory Respiratory exam: Present normal lung sounds bilaterally Cardiovascular Cardiovascular exam: Present regular rate Neurological Exam Neurological exam: Present alert HEART Score <Padmini Agustin [employer] Filed: 02/15/25 21:52> HEART Score HEART Score assessment performed?: No Critical Care <Padmini Agustin [employer] Filed: 02/15/25 21:52> Critical Care Time Critical Care Time: No Medical Decision Making <Padmini Agustin [employer] Filed: 02/15/25 21:52> [place] Inquiry Pt receiving controlled substance: No Vital Signs Vital Signs: 02/15/25 19:39 02/15/25 19:45 02/15/25 20:00 Temperature 98.3 F Temperature Source Oral Pulse Rate 77 70 Pulse Rate [Right] 78 Respiratory Rate 19 15 19 Blood Pressure 137/93 H 143/79 H Blood Pressure [Right Arm] 143/79 H Blood Pressure Mean 107 103 Blood Pressure Mean [Right Arm] 100 Blood Pressure Source [Right Arm] Automatic Cuff Blood Pressure Position 02 Sat by Pulse Oximetry 95 96 95 Oxygen Delivery Method Room Air 02/15/25 20:31 02/15/25 21:00 02/15/25 21:30 Temperature Temperature Source Pulse Rate 73 69 74 Pulse Rate [Right] Respiratory Rate 19 12 12 Blood Pressure 134/75 132/81 145/87 H Blood Pressure [Right Arm] Blood Pressure Mean 94 96 106 Blood Pressure Mean [Right Arm] Blood Pressure Source [Right Arm] Blood Pressure Position 02 Sat by Pulse Oximetry 95 96 95 Oxygen Delivery Method 02/15/25 22:00 02/16/25 00:09 Temperature 98.1 F Temperature Source Oral Pulse Rate 66 67 Pulse Rate [Right] Respiratory Rate 18 16 Blood Pressure 134/74 138/81 Blood Pressure [Right Arm] Blood Pressure Mean 105 Blood Pressure Mean [Right Arm] Blood Pressure Source [Right Arm] Blood Pressure Position Sitting 02 Sat by Pulse Oximetry 95 Oxygen Delivery Method Room Air Lab Data Labs: Lab Results 02/15/25 19:35: WBC 10.3, RBC 5.60, Hgb 17.3, Hct 50.4, MCV 90.0, MCH 30.9, MCHC 34.3, RDW 13.7, Plt Count 260, MPV 9.0, Neut % (Auto) 47.0, Lymph % (Auto) 37.0, [place] % (Auto) 13.1 H, Eos % (Auto) 1.9, Baso % (Auto) 0.7, Neut # (Auto) 4.9, Lymph # (Auto) 3.8, [place] # (Auto) 1.4 H, Eos # (Auto) 0.2, Baso # (Auto) 0.1, Sodium 139, Potassium 4.6, Chloride 104, Carbon Dioxide 25, Anion Gap 14.6, BUN 29 H, Creatinine 1.40 H, Estimated GFR 50 L, Est GFR ( Amer) 61, Glucose 117 H, Calcium 10.2, Total Bilirubin 0.7, AST 31, ALT 26, Alkaline Phosphatase 77, Troponin I < 0.01, NT-Pro-B Natriuret Pep 553 H, Total Protein 8.9 H D, Albumin 5.0, Globulin 3.9 H, Albumin/Globulin Ratio 1.3 02/15/25 22:40: Troponin I < 0.01 02/15/25 19:35 02/15/25 19:35 Response Orders (Tests/Meds): ED MEDICATIONS Discontinued Medications Generic Name Dose Route Start Last Admin Trade Name David PRN Reason Stop Dose Admin Aspirin 324 mg 02/15/25 19:39 02/15/25 19:47 Aspirin 81mg Chewable Tablet PO 02/15/25 19:40 324 mg ONCE ONE Administration Iopamidol 80 ml 02/15/25 20:09 02/15/25 20:10 Iopamidol-370 (76%);100ml Bottle IV 02/15/25 20:10 80 ml ONCE ONE Administration Sodium Chloride 50 ml 02/15/25 20:09 02/15/25 20:10 0.9 % Sodium Chloride 50 Ml Vial IV 02/15/25 20:10 50 ml ONCE ONE Administration Sodium Chloride 10 ml 02/15/25 20:09 02/15/25 20:10 Sodium Chloride 0.9% 10ml Syr (Rad Only) IV 02/15/25 20:10 10 ml ONCE ONE Administration ORDERS Category Date Time Status CTA Chest [CT angio chest PE protocol] Stat Cat Scan 02/15/25 19:48 Completed Complete Blood Count Auto Diff Stat Lab 02/15/25 19:35 Completed Comprehensive Metabolic Panel Stat Lab 02/15/25 19:35 Completed NT Pro Brain Natriuretic Pep. Stat Lab 02/15/25 19:35 Completed Troponin I Q3H Lab 02/15/25 22:40 Completed Troponin I Stat Lab 02/15/25 19:35 Completed MDM Narrative Medical Decision Narrative: Initial impression of presenting illness: 69-year-old male with extensive cardiac history including numerous stents presents to the emergency department with complaints of intermittent chest pain for the past 5 days. He states he has been out of his Eliquis for approximately 1 week. He reports taking all of his other medications as prescribed. He states that he took 1 sublingual nitro prior to arrival with relief of symptoms. Upon arrival he denies any pain at this time. He also denies fever or shortness of breath. Differential diagnosis includes but is not limited to: ACS, PE, pneumonia, GERD Patient arrives hemodynamically stable, afebrile, without respiratory distress with vital signs interpreted by myself. Initial physical exam reveals 1+ pitting edema to bilateral lower extremities however rest of exam is unremarkable. Initial diagnostic plan: ACS workup including CTA of chest Reviewed patient's presenting complaint as well as workup findings thus far with ED attending Dr. Stephenson. He has assumed patient care pending the completion of patient's cardiac workup. <Colton Palaicos MD - Last Filed: 02/16/25 04:07> Vital Signs Vital Signs: 02/15/25 19:39 02/15/25 19:45 02/15/25 20:00 Temperature 98.3 F Temperature Source Oral Pulse Rate 77 70 Pulse Rate [Right] 78 Respiratory Rate 19 15 19 Blood Pressure 137/93 H 143/79 H Blood Pressure [Right Arm] 143/79 H Blood Pressure Mean 107 103 Blood Pressure Mean [Right Arm] 100 Blood Pressure Source [Right Arm] Automatic Cuff Blood Pressure Position 02 Sat by Pulse Oximetry 95 96 95 Oxygen Delivery Method Room Air 02/15/25 20:31 02/15/25 21:00 02/15/25 21:30 Temperature Temperature Source Pulse Rate 73 69 74 Pulse Rate [Right] Respiratory Rate 19 12 12 Blood Pressure 134/75 132/81 145/87 H Blood Pressure [Right Arm] Blood Pressure Mean 94 96 106 Blood Pressure Mean [Right Arm] Blood Pressure Source [Right Arm] Blood Pressure Position 02 Sat by Pulse Oximetry 95 96 95 Oxygen Delivery Method 02/15/25 22:00 02/16/25 00:09 Temperature 98.1 F Temperature Source Oral Pulse Rate 66 67 Pulse Rate [Right] Respiratory Rate 18 16 Blood Pressure 134/74 138/81 Blood Pressure [Right Arm] Blood Pressure Mean 105 Blood Pressure Mean [Right Arm] Blood Pressure Source [Right Arm] Blood Pressure Position Sitting 02 Sat by Pulse Oximetry 95 Oxygen Delivery Method Room Air Lab Data Labs: Lab Results 02/15/25 19:35: WBC 10.3, RBC 5.60, Hgb 17.3, Hct 50.4, MCV 90.0, MCH 30.9, MCHC 34.3, RDW 13.7, Plt Count 260, MPV 9.0, Neut % (Auto) 47.0, Lymph % (Auto) 37.0, [place] % (Auto) 13.1 H, Eos % (Auto) 1.9, Baso % (Auto) 0.7, Neut # (Auto) 4.9, Lymph # (Auto) 3.8, [place] # (Auto) 1.4 H, Eos # (Auto) 0.2, Baso # (Auto) 0.1, Sodium 139, Potassium 4.6, Chloride 104, Carbon Dioxide 25, Anion Gap 14.6, BUN 29 H, Creatinine 1.40 H, Estimated GFR 50 L, Est GFR ( Amer) 61, Glucose 117 H, Calcium 10.2, Total Bilirubin 0.7, AST 31, ALT 26, Alkaline Phosphatase 77, Troponin I < 0.01, NT-Pro-B Natriuret Pep 553 H, Total Protein 8.9 H D, Albumin 5.0, Globulin 3.9 H, Albumin/Globulin Ratio 1.3 02/15/25 22:40: Troponin I < 0.01 Response Orders (Tests/Meds): ED MEDICATIONS Discontinued Medications Generic Name Dose Route Start Last Admin Trade Name Freq PRN Reason Stop Dose Admin Aspirin 324 mg 02/15/25 19:39 02/15/25 19:47 Aspirin 81mg Chewable Tablet PO 02/15/25 19:40 324 mg ONCE ONE Administration Iopamidol 80 ml 02/15/25 20:02/15/25 20:10 Iopamidol-370 (76%);100ml Bottle IV 02/15/25 20:10 80 ml ONCE ONE Administration Sodium Chloride 50 ml 02/15/25 20:02/15/25 20:10 0.9 % Sodium Chloride 50 Ml Vial IV 02/15/25 20:10 50 ml ONCE ONE Administration Sodium Chloride 10 ml 02/15/25 20:09 02/15/25 20:10 Sodium Chloride 0.9% 10ml Syr (Rad Only) IV 02/15/25 20:10 10 ml ONCE ONE Administration ORDERS Category Date Time Status CTA Chest [CT angio chest PE protocol] Stat Cat Scan 02/15/25 19:48 Completed Complete Blood Count Auto Diff Stat Lab 02/15/25 19:35 Completed Comprehensive Metabolic Panel Stat Lab 02/15/25 19:35 Completed NT Pro Brain Natriuretic Pep. Stat Lab 02/15/25 19:35 Completed Troponin I Q3H Lab 02/15/25 22:40 Completed Troponin I Stat Lab 02/15/25 19:35 Completed ECG Data Tracing #1: Attestation: I reviewed this ECG and interpreted as documented below: ECG Narrative: Ventricularly paced rhythm. No STEMI. MDM Narrative Medical Decision Narrative: Initial impression of presenting illness: 69-year-old male with extensive cardiac history including numerous stents presents to the emergency department with complaints of intermittent chest pain for the past 5 days. He states he has been out of his Eliquis for approximately 1 week. He reports taking all of his other medications as prescribed. He states that he took 1 sublingual nitro prior to arrival with relief of symptoms. Upon arrival he denies any pain at this time. He also denies fever or shortness of breath. Differential diagnosis includes but is not limited to: ACS, PE, pneumonia, GERD Patient arrives hemodynamically stable, afebrile, without respiratory distress with vital signs interpreted by myself. Initial physical exam reveals 1+ pitting edema to bilateral lower extremities however rest of exam is unremarkable. Initial diagnostic plan: ACS workup including CTA of chest Reviewed patient's presenting complaint as well as workup findings thus far with ED attending Dr. Stephenson. He has assumed patient care pending the completion of patient's cardiac workup. I was consulted by the JAMES, and we discussed the complexity of the problems being addressed. I approve the treatment and management plan for this patient's care in the emergency department, thus performing a substantive portion of the medical decision making. Workup showed no STEMI based on EKG. Initial troponin was delayed as laboratory had canceled the initial troponin and only obtained the second troponin. Second troponin resulted and was negative at less than 0.01. Patient's initial troponin was then ran based on patient's original troponin drawn was also less than 0.01. The remainder of the patient's workup was grossly unremarkable. BNP is mildly elevated at 553, however this is close to patient's baseline. On reassessment, patient stated that he is completely chest pain-free. He notes that he is followed closely by cardiology. Encouraged him to follow-up with his special warfare operator and to return to the emergency department for any new or worsening symptoms. He is in agreement with discharge at this time. He was then discharged from the emergency department in stable condition. Colton Palacios MD
--- OUTSIDE RECORDS SUMMARY | 2025-02-15 19:36 | XMS_ITS | Patient Health Record ---
Author Organization [facility] Address [address] [place] [address] Care Team Providers Care Social Worker Psychiatric Name Role Phone Tod Barraza Primary Care Provider [phone] Tod Barraza Unavailable Unavailable Shruti Morales Unavailable [phone] Migration, Provider Unavailable Unavailable Allergies Allergen (clinical drug ingredient) Drug/Non Drug Allergy documented on EMR Reaction Allergy Type Onset Date Status SULFA (uncoded) stomach upset Allergy Active oxycodone oxyCODONE stomach upset Drug Allergy Act humberto Penicillin Unknown Drug Allergy Active Results Component Value Reference Range Notes BASIC METABOLIC PANEL (08767 ) Reviewed date:08/31/2024 07:51:29 AM Interpretation: Performing Lab:CB, [facility] Nghi6629 [facility], [facility] HospitalMxpaVA[address] Kiran Sandy Notes/Report: FASTING: UNKNOWN GLUCOSE 112 65-99 mg/dL Fasting reference interval For someone without known diabetes, a glucose value between 100 and 125 mg/dL is consistent with prediabetes and should be confirmed with a follow-up test. UREA NITROGEN (BUN) 16 7-25 mg/dL CREATININE 1.02 0.70-1.35 mg/dL EGFR 80 > OR = 60 mL/min/1.73m2 BUN/CREATININE RATIO SEE NOTE: 6-22 (calc) Not Reported: BUN and Creatinine are within reference range. SODIUM 139 135-146 mmol/L POTASSIUM 4.2 3.5-5.3 mmol/L CHLORIDE 107 98-110 mmol/L CARBON DIOXIDE 25 20-32 mmol/L CALCIUM 9.2 8.6-10.3 mg/dL COMPREHENSIVE METABOLIC PANE L (93918) Reviewed date:12/26/2024 11:37:19 AM Interpretation: Performing Lab:RENITA GLIIF-TIKI.VN Cvsr0377 [facility], [facility] CenterQpjcID[address] Kiran Sandy Notes/Report: NON-FASTING; NON-FASTING; NON-FASTING; NON-FASTING; [...] 15 10-35 U/L ALT 15 9-46 U/L LIPID PANEL, STANDARD (2480) Reviewed date:12/26/2024 11:37:19 AM Interpretation: Performing Lab:RENITA GLIIF-TIKI.VN Ihvd6238 remoceantel [facility], [facility] HospitalTlaqDA[address] Kiran Sandy Notes/Report: NON-FASTING; NON-FASTING; NON-FASTING; NON-FASTING; [...] LDL-C. Daquan SS et al. CHANDRIKA. 2013;310(19): 2952-1744 (http://education.SiBEAM.[employer]/faq/KJH704) CHOL/HDLC RATIO 4.1 <5.0 (calc) NON HDL CHOLESTEROL 122 <130 mg/dL (calc) For patients with diabetes plus 1 major ASCVD risk factor, treating to a non-HDL-C goal of <100 mg/dL (LDL-C of <70 mg/dL) is considered a therapeutic option. LIPID PANEL, STANDARD (7600) Reviewed date:03/04/2024 02:15:52 PM Interpretation: Performing Lab:RENITA, [facility] Ryrx2098 [facility], [facility] HospitalMhltAT[address] Kiran Sandy Notes/Report: NON-FASTING; NON-FASTING; NON-FASTING FASTING:YES FASTING: YES CHOLESTEROL, TOTAL 134 <200 mg/dL HDL CHOLESTEROL 29 > OR = 40 mg/dL TRIGLYCERIDES 325 <150 mg/dL If a non-fasting specimen was collected, consider repeat triglyceride testing on a fasting specimen if clinically indicated. [place] et al. J. of Clin. Lipidol. 2015;9:129-169. LDL-CHOLESTEROL 66 Reference range: <100 Desirable range <100 mg/dL for primary prevention; <70 mg/dL for patients with CHD or diabetic patients with > or = 2 CHD risk factors. LDL-C is now calculated using the Daquan-Farnsworth calculation, which is a validated novel method providing better accuracy than the Friedewald equation in the estimation of LDL-C. Daquan SS et al. CHANDRIKA. 2013;310(19): 6099-9065 (http://education.SiBEAM.[employer]/faq/AWP281) CHOL/HDLC RATIO 4.6 <5.0 (calc) NON HDL CHOLESTEROL 105 <130 mg/dL (calc) For patients with diabetes plus 1 major ASCVD risk factor, treating to a non-HDL-C goal of <100 mg/dL (LDL-C of <70 mg/dL) is considered a therapeutic option. COMPREHENSIVE METABOLIC PANDemetrice Haile (24215) Reviewed date:03/04/2024 02:15:52 PM Interpretation: Performing Lab:RENITA GLIIF-Lvgou.come1355 [facility], [place] XgmrJL[address] Kiran Sandy Notes/Report: NON-FASTING; NON-FASTING; NON-FASTING FASTING:YES FASTING: YES GLUCOSE 166 65-99 mg/dL Fasting reference interval For someone without known diabetes, a glucose value >125 mg/dL indicates that they may have diabetes and this should be confirmed with a follow-up test. UREA NITROGEN (BUN) 17 7-25 mg/dL CREATININE 0.97 0.70-1.35 mg/dL EGFR 86 > OR = 60 mL/min/1.73m2 BUN/CREATININE RATIO SEE NOTE: 6-22 (calc) Not Reported: BUN and Creatinine are within reference range. SODIUM 135 135-146 mmol/L POTASSIUM 4.1 3.5-5.3 mmol/L CHLORIDE 101 98-110 mmol/L CARBON DIOXIDE 22 20-32 mmol/L CALCIUM 9.4 8.6-10.3 mg/dL PROTEIN, TOTAL 6.9 6.1-8.1 g/dL ALBUMIN 4.0 3.6-5.1 g/dL GLOBULIN 2.9 1.9-3.7 g/dL (calc) ALBUMIN/GLOBULIN RATIO 1.4 1.0-2.5 (calc) BILIRUBIN, TOTAL 0.3 0.2-1.2 mg/dL ALKALINE PHOSPHATASE 61 35-144 U/L AST 16 10-35 U/L ALT 14 9-46 U/L HEMOGLOBIN A1c (496) Reviewed date:03/04/2024 02:15:53 PM Interpretation: Performing Lab:RENITA [facility] remoceantel [employer], Lvgou.comIqyfGA[address] Kiran Sandy Notes/Report: NON-FASTING; NON-FASTING; NON-FASTING FASTING:YES FASTING: YES HEMOGLOBIN A1c 6.6 <5.7 % of total Hgb For someone without known diabetes, a hemoglobin [...] A1c for diagnosis of diabetes for children. This test was performed on the Asad tessa c503 platform. Effective 08/19/23, a change in test platforms from the Hooker Nurse Healthcare Manager to the Asad tessa c503 may have shifted HbA1c results compared to historical results. Based on laboratory validation testing conducted at [facility], the Asad platform relative to the Hooker platform had an average increase in HbA1c value of < or = 0.3%. This difference is within accepted variability established by the National Glycohemoglobin Standardization Program. Note that not all individuals will have had a shift in their results and direct comparisons between historical and current results for testing conducted on different platforms is not recommended. Microalbumin (In-House) Reviewed date:10/12/2024 10:30:26 AM Interpretation:Normal Performing Lab: Notes/Report: Normal ALB 10 CRE 50 A:C <30 BASIC METABOLIC PANEL (71223 ) Reviewed date:11/04/2024 02:20:34 PM Interpretation: Performing Lab:RENITA GLIIFIrena Durhame1355 remoceanMat [place] XodhXN[address] Kiran Sandy Notes/Report: NON-FASTING; NON-FASTING; NON-FASTING GLUCOSE 96 65-99 mg/dL Fasting reference interval UREA NITROGEN (BUN) 23 7-25 mg/dL CREATININE 1.15 0.70-1.35 mg/dL EGFR 69 > OR = 60 mL/min/1.73m2 BUN/CREATININE RATIO SEE NOTE: 6-22 (calc) Not Reported: BUN and Creatinine are within reference range. SODIUM 136 135-146 mmol/L POTASSIUM 4.6 3.5-5.3 mmol/L CHLORIDE 100 98-110 mmol/L CARBON DIOXIDE 24 20-32 mmol/L CALCIUM 9.9 8.6-10.3 mg/dL CBC (INCLUDES DIFF/PLT) (639 9) Reviewed date:11/04/2024 02:20:34 PM Interpretation: Performing Lab:RENITA GLIIFIrena Durhame1355 [facility] Kiran Sandy Notes/Report: NON-FASTING; NON-FASTING; NON-FASTING WHITE BLOOD CELL COUNT 8.5 3.8-10.8 Thousand/ uL RED BLOOD CELL COUNT 5.24 4.20-5.80 Million/uL HEMOGLOBIN 16.0 13.2-17.1 g/dL HEMATOCRIT 50.3 38.5-50.0 % MCV 96.0 80.0-100.0 fL MCH 30.5 27.0-33.0 pg MCHC 31.8 32.0-36.0 g/dL For adults, a slight decrease in the calculated MCHC value (in the range of 30 to 32 g/dL) is most likely not clinically significant; however, it should be interpreted with caution in correlation with other red cell parameters and the patient's clinical condition. RDW 12.5 11.0-15.0 % PLATELET COUNT 310 140-400 Thousand/uL MPV 9.1 7.5-12.5 fL ABSOLUTE NEUTROPHILS 4973 2073-7001 cells/uL ABSOLUTE LYMPHOCYTES 2168 850-3900 cells/uL ABSOLUTE MONOCYTES 1003 200-950 cells/uL ABSOLUTE EOSINOPHILS 315 15-500 cells/uL ABSOLUTE BASOPHILS 43 0-200 cells/uL NEUTROPHILS 58.5 LYMPHOCYTES 25.5 MONOCYTES 11.8 EOSINOPHILS 3.7 BASOPHILS 0.5 CBC (INCLUDES DIFF/PLT) (639 9) Reviewed date:12/26/2024 11:37:19 AM Interpretation: Performing Lab:CB, [facility] Kgtd6439 [facility] Kiran Sandy Notes/Report: NON-FASTING; NON-FASTING; NON-FASTING; NON-FASTING; [...] MPV 9.2 7.5-12.5 fL ABSOLUTE NEUTROPHILS 4976 8506-0545 cells/uL ABSOLUTE LYMPHOCYTES 3190 850-3900 cells/uL ABSOLUTE MONOCYTES 949 200-950 cells/uL ABSOLUTE EOSINOPHILS 140 15-500 cells/uL ABSOLUTE BASOPHILS 47 0-200 cells/uL NEUTROPHILS 53.5 LYMPHOCYTES 34.3 MONOCYTES 10.2 EOSINOPHILS 1.5 BASOPHILS 0.5 HEMOGLOBIN A1c (496) Reviewed date:12/26/2024 11:37:19 AM Interpretation: Performing Lab:RENITA GLIIF-Lvgou.come1355 [facility], My Visual BriefGbenRD[address] Kiran Sandy Notes/Report: NON-FASTING; NON-FASTING; NON-FASTING; NON-FASTING; [...] A1c for diagnosis of diabetes for children. HEMOGLOBIN A1c (496) Reviewed date:11/04/2024 02:20:34 PM Interpretation: Performing Lab:RENITA GLIIF-Lvgou.come1355 [facility], My Visual [id number] Kiran Sandy Notes/Report: NON-FASTING; NON-FASTING; NON-FASTING HEMOGLOBIN A1c 6.1 <5.7 % For someone without known diabetes, a hemoglobin A1c value between 5.7% and 6.4% is consistent with prediabetes and should be confirmed with a follow-up test. For someone with known diabetes, a value <7% indicates that their diabetes is well controlled. A1c targets should be individualized based on duration of diabetes, age, comorbid conditions, and other considerations. This assay result is consistent with an increased risk of diabetes. Currently, no consensus exists regarding use of hemoglobin A1c for diagnosis of diabetes for children. TSH W/REFLEX TO FT4 (65906) Reviewed date:12/26/2024 11:37:19 AM Interpretation: Performing Lab:RENITA, [facility] Uqqp3914 [facility], Mat DurhamTkftXU[address] Kiran Sandy Notes/Report: NON-FASTING; NON-FASTING; NON-FASTING; NON-FASTING; NON-FAST FASTING:YES FASTING: YES TSH W/REFLEX TO FT4 1.65 0.40-4.50 mIU/L Reason For Referral No Information Medications Medication SIG (Take, Route, Frequency, Duration) Notes Start Date End Date Status amLODIPine Besylate 10 MG 1 tab(s) orall y once a day; Duration: 30 days Not-Takin g Metoprolol Tartrate 25 MG 1 tab(s) orall y 2 times a day Active Eliquis 5 MG as directed orally 2 times a day; Duration: 30 day(s) Active metFORMIN HCl 500 MG 1 tab(s) orally 2 t imes a day; Duration: 90 days Active Shingrix 50 MCG/0.5ML as directed Intramuscular daily; Duration: 1 days 12/21/2024 Active Plavix 75 MG 1 tab(s) orally once a day Active Spironolactone 50 mg TAKE ONE TABLET BY MOUTH 2 TIMES A DAY; Duration: 30 Active Omeprazole 40 MG 1 cap(s) orally once a day; Duration: 30 day(s) Active Pravastatin Sodium 40 MG 1 tab(s) orally once a day; Duration: 30 day(s) Active Nitroglycerin 0.4 MG tablet sublingually every 5 minutes prn prn Active Furosemide 80 MG 1/2tab(s) orally onc e a day; Duration: 30 days Active Triamcinolone Acetonide 0.1 % 1 alex applied topically 3 times a day; Duration: 7 days 04/08/2023 Active Ozempic (0.25 or 0.5 MG/DOSE) 2 MG/3ML 0.25 mg injection subcutaneous once weekly and then increase to 0.5 mg once a week Subcutaneous once a week; Duration: 28 days 12/26/2024 Active OXYGEN 2 LITERS DIRECTED AT NIGHT ; Duration: 30 DAYS prn 04/23/2023 Active Immunizations Vaccine Route Administration Date Status Comme nts Prevnar PCV-20 (Pneumococcal conjugate 20) IM Intramuscular 02/24/2022 Administered Fluzone High Dose IM Intramuscular 02/24/2022 Administered Fluzone High Dose IM Intramuscular 03/02/2024 Administered Decavac (Tetanus-diptheria) age 7 and above Unknown 02/21/2019 Administered Arexvy IM Intramuscular 05/02/2024 Administered Social History Tobacco Use: Social History Observation Description Date Details (start date - stop date) Former Smoker NA - NA Smoking: Question Answer Notes Are you a: former smoker How long has it been since you last smoked? > 10 years Problems Problem Type SNOMED Code ICD Code Onset Dates Problem Status W/U Status Risk Notes Problem Iron deficiency anemia (02818436) Iron deficiency anemia, unspecified (D50.9) Active confirmed Problem Type 2 diabetes mellitus with other specified complication (E11.69) Active confirmed Problem Mixed hyperlipidemia (419120259) Mixed hyperlipidemia (E78.2) Active confirmed Problem C-reactive protein abnormal (186897460) Elevated C-reactive protein (CRP) (R79.82) Active confirmed Problem Acute exacerbation of chronic obstructive airways disease (181721534) COPD with exacerbation (J44.1) Active confirmed Problem Lymphedema (19222605) Lymphedema (I89.0) Active confirmed Problem Obesity (487436747) Obesity, unspecified (E66.9) Active confirmed Problem 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, multiple joint involvement (M12.9) Active confirmed Problem Atherosclerosis of coronary artery without angina pectoris (297704506279919) Atherosclerosis of red cliff coronary artery of red cliff heart without angina pectoris (I25.10) Active confirmed Problem COPD - Chronic obstructive pulmonary disease (13206880) Chronic obstructive pulmonary disease, unspecified COPD type (J44.9) Active confirmed Problem Chronic systolic heart failure (457152669) Chronic systolic congestive heart failure (I50.22) Active confirmed Problem Polyneuropathy due to type 2 diabetes mellitus (367572526) Diabetic polyneuropathy associated with type 2 diabetes mellitus (E11.42) Active confirmed Problem Malignant tumor of urinary bladder (960207429) Malignant neoplasm of urinary bladder, unspecified site (C67.9) Active confirmed Problem Panic attack (038621004) Panic attack (F41.0) Active confirmed Problem Sleep disorder (39179447) Sleep disorder (G47.9) Active confirmed Problem Edema (870421260) Bilateral abbie a of lower extremity (R60.0) Active confirmed Problem Primary hypertension (35354203) Primary hypertension (I10) Active confirmed Problem Permanent atrial fibrillation (271567897) Permanent atrial fibrillation (I48.21) Active confirmed Problem Chronic atrial fibrillation (189844973) Chronic atrial fibrillation (I48.20) Active confirmed Vital Signs Heart Rate 80 /min 12/21/2024 Temperature 97.2 degrees Fahrenheit 12/21/2024 Blood pressure diastolic 78 mm Hg 12/21/2024 Height 70 in 12/21/2024 Blood pressure systolic 112 mm Hg 12/21/2024 Weight 295.8 lbs 12/21/2024 BMI 42.44 kg/m2 12/21/2024 Encounters Encounter Location Date Provider Diagnosis [facility] [address] [place] [address] 09/17/2024 Provider Migration [facility] [address] [place] [address] 03/02/2024 Tod Barraza Type 2 diabetes mellitus with other specified complication E11.69 ; Atherosclerosis of red cliff coronary artery of red cliff heart without angina pectoris I25.10 ; Chronic obstructive pulmonary disease, unspecified COPD type J44.9 and Immunization(s) administered Z23 [facility] [address] [place] [address] 05/02/2024 Tod Barraza Type 2 diabetes mellitus with other specified complication E11.69 ; Atherosclerosis of red cliff coronary artery of red cliff heart without angina pectoris I25.10 ; Chronic atrial fibrillation I48.20 ; Primary hypertension I10 ; Immunization(s) administered Z23 and Routine medical exam Z00.00 [facility] [address] [place], [place] [address] 08/08/2024 Tod Barraza Acute recurrent maxillary sinusitis J01.01 ; Type 2 diabetes mellitus with other specified complication E11.69 ; Atherosclerosis of red cliff coronary artery of red cliff heart without angina pectoris I25.10 and Chronic atrial fibrillation I48.20 [facility] [address] [place] [address] 08/29/2024 Tod Barraza Orthostatic hypotens ion I95.1 ; SHREYA (acute kidney injury) N17.9 and Hospital discharge follow-up Z09 [facility] [address] [facility] [address] [place] [address] 10/12/2024 Tod Barraza Type 2 diabetes mellitus with other specified complication E11.69 ; Atherosclerosis of red cliff coronary artery of red cliff heart without angina pectoris I25.10 and Chronic atrial fibrillation I48.20 [facility] [address] [facility] [address] [place] [address] 12/21/2024 Shruti Morales Type 2 diabetes mellitus with other specified complication E11.69 ; Atherosclerosis of red cliff coronary artery of red cliff heart without angina pectoris I25.10 ; Chronic atrial fibrillation I48.20 ; Hypertension, unspecified type I10 ; Encounter for immunization Z23 ; Mixed hyperlipidemia E78.2 and Fatigue, unspecified type R53.83 [facility] [address] [facility] [address] [place], [place] [address] 08/17/2024 [facility] [address] [facility] [address] [place], [place] [address] 12/26/2024 Shruti Morales Assessments Encounter Date Diagnosis (ICD Code) Assessment Notes Treatment Notes Treatment Clinical Notes Section Notes 03/02/2024 Type 2 diabetes mellitus with other specified complication (ICD-10 - E11.69) - on jardiance and metformin, no GI side effects - last A1c 08/2023 6.7 - repeat A1c today 03/02/2024 Atherosclerosis of red cliff coronary artery of red cliff heart without angina pectoris (ICD-10 - I25.10) Needs aggressive lipid and blood sugar control because of atherosclerotic heart disease. Labs drawn today. Please note I will review these personally 05/02/2024 Type 2 diabetes mellitus with other specified complication (ICD-10 - E11.69) - on jardiance and metformin, no GI side effects, continue - last A1c 02/2024 6.6 - repeat A1c in 3 months 08/08/2024 Type 2 diabetes mellitus with other specified complication (ICD-10 - E11.69) A1c has been under good control. No changes in plan today. Treat infection as noted above aggressively given his diabetes and high risk for complications. I will see him back in 2 months and will get A1c at that point 08/08/2024 Acute recurrent maxillary sinusitis (ICD-10 - J01.01) Start antibiotic for acute sinusitis as stated above. Discussed the etiology & expected course of a URI. Continue supportive care with PRN antipyretics, nasal saline rinses, and humidifier. Encourage PO hydration. Discussed the signs and symptoms of worsening condition and need for reassessment in clinic or ED. Patient and family voice understanding. Keep previously scheduled WCC or f/u sooner PRN. 05/02/2024 Atherosclerosis of red cliff coronary artery of red cliff heart without angina pectoris (ICD-10 - I25.10) - chronic, s/p 14 stents, follows with Cardiology with [facility] in [place] - discussed with patient, having chest discomfort, using SL Nitro 1-2x/week, reccommended he schedule closer follow up with Local Area Network Administrator and patient agreeable - will continue current medical therapy at this time in the interim 08/29/2024 Orthostatic hypotension (ICD-10 - I95.1) No further dizziness or syncopal episodes since discharge. BP wnl today. Will keep medications the same as at discharge, patient to follow up with cardiology 09/08. 08/29/2024 SHREYA (acute kidney injury) (ICD-10 - N17.9) Cr 1.6->1.3 during hospitalization, likely prerenal shreya due to hypotension. Will obtain BMP today to recheck Cr. 10/12/2024 Type 2 diabetes mellitus with other specified complication (ICD-10 - E11.69) Microalbumin testing normal. Check A1c today. I will review all labs personally. No changes in plan at this point 10/12/2024 Atherosclerosis of red cliff coronary artery of red cliff heart without angina pectoris (ICD-10 - I25.10) Stable. No chest pain. 12/21/2024 Type 2 diabetes mellitus with other [...] plan of care above. 12/21/2024 Atherosclerosis of red cliff coronary artery of red cliff heart without angina pectoris (ICD-10 - I25.10) Continue GDMT per Local Area Network Administrator Dr. Moss. Keep follow-up with Cardiology. 12/21/2024 Chronic atrial fibrillation (ICD-10 - I48.20) Defer management to Cardiology. Patient is rate controlled, but still in a fib. He reports failing multiple ablations. Continue BB and anticoag. 05/02/2024 Chronic atrial fibrillation (ICD-10 - I48.20) - chronic, follows with Cards - provided Eliquis samples today, continue 10/12/2024 Chronic atrial fibrillation (ICD-10 - I48.20) Rate controlled. On DOAC. Some samples given. Will switch over to Xarelto if and when it becomes generic 08/29/2024 Hospital discharge follow-up (ICD-10 - Z09) Reviewed H&P, discharge summary and medications. Personally reconciled medication 08/08/2024 Atherosclerosis of red cliff coronary artery of red cliff heart without angina pectoris (ICD-10 - I25.10) Doing well. Asymptomatic. No changes in plan 03/02/2024 Chronic obstructive pulmonary disease, unspecified COPD type (ICD-10 - J44.9) Overall stable on current inhalers 03/02/2024 Immunization(s) administered (ICD-10 - Z23) - flu shot administered today 08/08/2024 Chronic atrial fibrillation (ICD-10 - I48.20) Rate controlled. No changes in plan at this point 05/02/2024 Primary hypertension (ICD-10 - I10) - chronic, well controlled - denies lightheadedness or dizziness, headaches at this time - continue current medical therapy without changes 12/21/2024 Hypertension, unspecified type (ICD-10 - I10) Controlled, continue current regimen. 12/21/2024 Encounter for immunization (ICD-10 - Z23) 05/02/2024 Immunization(s) administered (ICD-10 - Z23) - RSV vaccination today - due for Shingles, instructed to obtain at pharmacy 05/02/2024 Routine medical exam (ICD-10 - Z00.00) Up-to-date with colon screening, vaccinations. Out of range for low-dose CT given length of time since smoked. Good functional status. No recent falls. Family is healthcare surrogate 12/21/2024 Mixed hyperlipidemia (ICD-10 - E78.2) I personally will review all labs once final and adjust if needed. Continue current regimen. 12/21/2024 Fatigue, unspecified type (ICD-10 - R53.83) I personally will review all labs once final. 03/02/2024 Other 05/02/2024 Other Plan Of Treatment Pending Test Test Name Order Date Physical Therapy : Lymphedema 09/22/2022 Physical Therapy : Lymphedema 07/22/2022 M-Troponin I 05/26/2023 Insurance Providers Payer Name Payer Address Payer Phone Subscriber Number Group Number Insured Name Patient Relationship to Insured Coverage Start Date Coverage End Date [employer] [address] [place] [address] [id number] Myron Galindo Self - patient is the insured Medical (General) History Medical History History ICD Code Coronary artery disease s/p 13 stents type II diabetes hypertension high cholesterol degenerative disc disease COPD Afib PAD Diabetic neuropathy AAA screen negative normal 11/03 Iron def anemia with negative c-scope an d nonerosive GERD 12/04 Bladder Cancer DX- 10/30/23 Surgical History Surgery Date(Month/Year) x13 stents gallbladder hernia repair- groin 1 Cardiac stent 08/2023 bladder tumor (cancerous) removal 4 Hospitalization History Reason Date(Month/Year) H- Low blood pressure 08/14/24-08/17/24 [facility] - Infection as listed above
--- OUTSIDE RECORDS SUMMARY | 2025-02-15 19:37 | XMS_ITS | Clinical Summary ---
Author Organization [facility] Address [address] [place] [address] Phone Care Team Providers Care Field Identification Specialist Name Role Phone Soila Victor Unavailable Unavailable Conditions or Problems Problem Name Problem Code Onset Date Status Entry Date Provider Comment Standard Description Annotate Obesity 008105370 (SNOMED CT) 01/24 Active 01/24 Isabel Dianne Obesity Coronary artery disease (CAD) 06720448 (SNOMED CT) 01/15 Active 01/15 Kendal Hernandez Coronary arteriosclerosis Microcytic anemia 22876306 (SNOMED CT) 01/15 Active 01/15 Kendal Hernandez Anemia due to decreased red cell production Presence of cardiac pacemaker 279478466 (SNOMED CT) 01/15 Active 01/15 Kendal Hernandez Cardiac pacemaker in situ Group B strep Sepsis A40.1 (ICD-10-CM ) 01/15 Active 01/15 Kendal Hernandez Sepsis due to streptococcus, group B MSSA sepsis/septic emia A41.01 (ICD-10-CM ) 01/15 Active 01/15 Kendal Hernandez Sepsis due to Methicillin susceptible Staphylococcus aureus Chronic respiratory failure with hypoxia 61471074 (SNOMED CT) 01/15 Active 01/15 Kendal Hernandez Acute respiratory failure COPD 56771643 (SNOMED CT) 01/15 Active 01/15 Kendal Hernandez Chronic obstructive pulmonary disease DM II with diabetic peripheral neuropathy 47963288 (SNOMED CT) 01/15 Active 01/15 Kendal Hernandez Type 2 diabetes mellitus 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 (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) 5970444 (SNOMED CT) 01/15 Active 01/15 Kendal Hernandez Benign essential hypertension Medications Medication Instructions Start Date Stop Date Generic Name ND Provider CEFAZOLIN IN SODIUM CHLORIDE SOLN 2GM IV Q 8hrs/ I and [facility] for labs, line care and dose CEFAZOLIN IN SODIUM CHLORIDE SOLN [id number] Soila Vitcor TESTOSTERONE 20.25 MG/1.25GM (1.62%) GEL 2 pump presses to the skin daily TESTOSTERONE 96318313835 Lucie Peraza PRAVASTATIN SODIUM 40 MG TABS Take one by mouth daily PRAVASTATIN SODIUM 09539279619 Lucie Peraza PRASUGREL HCL 10 MG TABS Take one by mouth daily PRASUGREL HCL 94303932810 Lucie Peraza OMEPRAZOLE 40 MG CPDR Take one by mouth daily OMEPRAZOLE 15707451697 Lucie Peraza NITROGLYCERIN 0.4 MG SUBL 0.4 mg, Sublingual, Every 5 Minutes PRN, Under tongue for 5 minutes up to 3 doses PRN chest pain NITROGLYCERIN 47726596619 Lucie Peraza MONTELUKAST SODIUM 10 MG TABS Take one by mouth daily MONTELUKAST SODIUM 80868577433 Lucie Peraza DULERA 200-5 MCG/ACT AERO 2 puffs, Inhalation, Nightly PRN MOMETASONE FURO-FORMOTEROL FUM 48911820256 Lucie Peraza METFORMIN HCL 500 MG TABS Take by mouth twice a day METFORMIN HCL 37046289979 Lucie Peraza ISOSORBIDE DINITRATE 30 MG TABS TAKE TWO TABLETS BY MOUTH 2 TIMES A DAY ISOSORBIDE DINITRATE 42995969975 Lucie Peraza FLUTICASONE PROPIONATE 50 MCG/ACT SUSP 2 sprays, Nasal, Nightly PRN FLUTICASONE PROPIONATE 53575240043 Lucie Peraza MULTAQ 400 MG TABS Take by mouth twice a day DRONEDARONE HCL 66461615946 Lucie Peraza ELIQUIS 5 MG TABS Take by mouth twice a day APIXABAN 03213883043 Lucie Peraza BREO ELLIPTA 200-25 MCG/ACT AEPB 1 puff, Inhalation, Nightly FLUTICASONE FUROATE-VILANTER OL 89644227057 Lucie Peraza AMLODIPINE BESYLATE 5 MG TABS Take one by mouth daily AMLODIPINE BESYLATE 26848971283 Lucie Peraza ALBUTEROL SULFATE HFA 108 (90 Base) MCG/ACT AERS 2 puffs, Inhalation, Every 4 Hours PRN ALBUTEROL SULFATE 47282229697 Lucie Peraza METOPROLOL TARTRATE 25 MG TABS Take by mouth twice a day METOPROLOL TARTRATE 95066026770 Lucie Peraza FUROSEMIDE 80 MG TABS Take one by mouth daily FUROSEMIDE 35610037715 Lucie Peraza CEFAZOLIN IN SODIUM CHLORIDE SOLN 2GM IV Q 8hrs/ [facility] for labs, line care and dose CEFAZOLIN IN SODIUM CHLORIDE SOLN [id number] Leona Bhatti RN Medications Administered No information available. Allergies, Adverse Reactions, Alerts Allergy Name Reaction Description Start Date Severity Statu s Provider OXYCODONE Critical Active Irvin tamez MD BACTRIM Critical Active Irvin tamez MD PENICILLIN V POTASSIUM Moderate Active Irvin vásquez MD Results Date Name Value Unit Range Flag Description Clinical Lists Update: Prelo ad HGBA1C 6.70 % Hemoglobin A1c/Hemoglobin, total in Blood - % Chart Maintenance: 02/01 labs % EOS AUTO 7.4 % Eosinophil s/100 leukocytes in Blood by Automated count MONOCYTE BF 13.9 % monocytes as percent of body fluid leukocytes NEUTROP BF 43 % Neutrophil s/100 leukocytes in Body fluid Lab Report: BASIC METABOLIC PANEL, SED RATE BY MODIFIED WESTERGREN, CBC ... CRP 1.9 MG/L <8.0 N C reactive pr otein [Mass/volume] in Serum or Plasma BASOPHIL % 0.9 % N Basophils/ 100 leukocytes in Blood by Manual count EOSINOPHIL % 4.9 % N Eosinoph ils/100 leukocytes in Blood by Manual count MONOCYTE % 13.2 % N Monocytes/ 100 leukocytes in Blood by Automated count LYMPHS % 30.3 % N Lymphocytes/ 100 leukocytes in Blood by Automated count PMN % 50.7 % N Neutrophils/1 00 leukocytes in Blood by Automated count BASO# 59 cells/uL 0-200 N Basophils [#/volume] in Blood EOS ABSLT 323 CELLS/UL 10*3/uL 15-500 N Eosino phils [#/volume] in Blood MONOSCT AUTO 871 CELLS/UL 10*3/uL 200-950 N Mon ocytes [#/volume] in Blood by Automated count LYMPHCT AUTO 2000 CELLS/UL 10*3/mm3 850-3900 N Lymphocytes [#/volume] in Blood by Automated count ABS NEUTROPH 3346 CELLS/UL 10*3/uL 3639-1540 N Neutrophils [#/volume] in Blood MPV 9.9 fL 7.5-12.5 N Platelet lyndon n volume [Entitic volume] in Blood by Michael PLATELETS 273 THOUSAND/UL 10*3/mm3 140-[address] atelets [#/volume] in Blood by Automated count RDW_ 16.1 11.0-15.0 H RDW, no uni ts MCHC 31.0 G/DL 32.0-36.0 L MCHC [Mass/ volume] by Automated count MCH 23.8 pg 27.0-33.0 L MCH [Entiti c mass] by Automated count MCV 76.9 fL 80.0-100.0 L MCV [Entit ic volume] by Automated count HCT 32.3 % 38.5-50.0 L Hematocrit [Volume Fraction] of Blood by Automated count HGB 10.0 g/dL 13.2-17.1 L Hemoglobin [Mass/volume] in Blood RBC 4.20 MILLION/UL 10*6/mm3 4.20-5.80 N Er ythrocytes [#/volume] in Blood by Automated count WBC 6.6 THOUSAND/UL 10*3/mm3 3.8-10.8 N Dylan kocytes [#/volume] in Blood by Automated count ESR 29 mm/h < OR = 20 H Erythrocyte sedimentation rate by Westergren method CALCIUM 9.4 mg/dL 8.6-10.3 N Calcium [Moles/volume] in Serum or Plasma CO2 28 mmol/L 20-32 N Carbon dioxid e, total [Moles/volume] in Venous blood CHLORIDE 102 mmol/L 98-110 N Chloride [Moles/volume] in Serum or Plasma POTASSIUM 3.6 mmol/L 3.5-5.3 N Potassium [Moles/volume] in Serum or Plasma SODIUM 140 mmol/L 135-146 N Sodium [Moles/volume] in Serum or Plasma BUN/CREAT NOT APPLICABLE (calc) 6-22 Urea nitrogen/Creatinin e [Mass Ratio] in Serum or Plasma EGFR IF AFA 95 mL/min/1. 73m2 > OR = 60 N Glomerular filtration rate/1.73 sq M.predicted among blacks [Volume Rate/Area] in Serum, Plasma or Blood by Creatinine-based formula (MDRD) EGFR 82 mL/min/1. 73m2 > OR = 60 N Glomerular filtration rate/1.73 sq M.predicted [Volume Rate/Area] in Serum, Plasma or Blood by Creatinine-based formula (MDRD) CREATININE 0.98 mg/dL 0.70-1.25 N Creatini ne [Mass/volume] in Serum or Plasma BUN 14 mg/dL 7-25 N Urea nitrogen [Mass/volume] in Serum or Plasma GLUCOSE SER 127 mg/dL 65-99 H Glucose [Mass/volume] in Serum or Plasma Office Visit: 8 MEDS REVIEW Done Documenta tion of current medications (procedure) ORALTOBACUSE Never Tobacco smoking status CIGARET SMKG yes Tobacco smoking status SMOK STATUS Former smoker Tob acco smoking status Plan of Care Type Date Detail Pending order Blood Cultures X 2 Pending order Continue IV anti biotics Pending order Weekly PICC Line Care Pending order Cefazolin Pending order Continue IV anti biotics Pending order Cefazolin Pending order Weekly PICC Line Care Pending order Weekly Labs (Con tinue) Pending order Labs Pending order Continue IV anti biotics Pending order Cefazolin Pending order Weekly Labs (Con tinue) Pending order Weekly PICC Line Care Pending order Continue IV anti biotics Pending order Cefazolin Pending order Labs Pending order BMP Pending order CBC with Differe ntial Pending order C- reactive prot ein Pending order Sedimentation Ra te (ESR) Pending order Weekly Labs (Con tinue) Pending order Weekly PICC Line Care Pending order Continue IV anti biotics Pending order Cefazolin Pending order Weekly PICC Line Care Pending order Weekly Labs (Con tinue) Pending order STAT Labs Patient education WEIGHT%20MANAG EMENT Patient education OBESITY Patient education WEIGHT%20MANAG EMENT Patient education WEIGHT%20MANAG EMENT Patient education OBESITY Patient education WEIGHT%20MANAG EMENT Patient education WEIGHT%20MANAG EMENT Patient education OBESITY Patient education WEIGHT%20MANAG EMENT Procedures Code Procedure Name Date Entry Date CPT-ca Continue IV antibiotics 2019 CPT-J0690 Cefazolin CPT-wpc Weekly PICC Line Care 0 02/09 CPT-cwl Weekly Labs (Continue) 02/09 CPT-labs Labs CPT-ca Continue IV antibiotics 2019 CPT-J0690 Cefazolin CPT-cwl Weekly Labs (Continue) 02/01 CPT-wpc Weekly PICC Line Care 0 02/01 CPT-ca Continue IV antibiotics 2019 CPT-J0690 Cefazolin CPT-labs Labs CPT-77562 BMP [id number] CBC with Differential 2019 CPT-56188 C- reactive protein CPT-95220 Sedimentation Rate (ESR) 202 CPT-cwl Weekly Labs (Continue) 01/26 CPT-wpc Weekly PICC Line Care 01/26 CPT-ca Continue IV antibiotics 2019 CPT-J0690 Cefazolin CPT-wpc Weekly PICC Line Care 0 01/18 CPT-cwl Weekly Labs (Continue) 01/18 CPT-sl STAT Labs Vital Signs Date Name Value Unit Description BMI (Body Mass Index) 45.24 kg/m2 Bod y Mass Index (Ratio) Body Temperature 98.0 [degF] temperat ure E&M BP Diastolic 90 mm[Hg] blood pressu re, diastolic BP Systolic 142 mm[Hg] blood pressur e, systolic Heart Rate 69 /min pulse rate Respiratory Rate 20 /min respirat ory rate E&M Weight Measured 333.6 [lb_av] weight E& M Weight Measured 333.6 [lb_av] weight E& M Height 72 [in_us] height E&M Immunizations No information available. Advance Directives Directive Description Start Date HAS LIVING WILL ON FILE
[2025-02-15] MEDS: ASPIRIN 81MG CHEWABLE TABLET 324 MG PO (19:47)
--- NOTE | 2025-02-15 19:48 | CT_ITS ---
PROCEDURE INFORMATION: Exam: CTA Chest With Contrast Exam date and time: 02/15/2025 8:10 PM Age: 69 years old Clinical indication: Pain; Chest pressure; Additional info: Cp TECHNIQUE: Imaging protocol: Computed tomographic angiography of the chest with contrast. Exam focused on the arteries. 3D rendering (Not supervised by radiologist): MIP and/or 3D reconstructed images were created by the technologist. Radiation optimization: All CT scans at this facility use at least one of these dose optimization techniques: automated exposure control; mA and/or kV adjustment per patient size (includes targeted exams where dose is matched to clinical indication); or iterative reconstruction. Contrast material: ISO; Contrast volume: 80 ml; Contrast route: INTRAVENOUS (IV); COMPARISON: CR XR CHEST PORTABLE 08/16/2024 10:05 AM FINDINGS: Tubes, catheters and devices: Left subclavian transvenous pacemaker leads within the right cardiac chambers. Pulmonary arteries: Normal. No pulmonary emboli. Aorta: Unremarkable. No aortic aneurysm. No aortic dissection. Lungs: Calcified granulomas within the left lower lobe. Pleural spaces: Unremarkable. No pneumothorax. No pleural effusion. Heart: Unremarkable. No cardiomegaly. No pericardial effusion. Coronary arteries: Extensive three-vessel coronary artery atherosclerotic disease. Lymph nodes: Calcified left hilar lymph nodes, compatible with prior granulomatous disease. Gallbladder and biliary ducts: Gallbladder surgically absent. Spleen: Splenic calcifications, compatible with prior granulomatous disease. Kidneys: Bilateral simple renal cysts, for which no further evaluation necessary. Bones/joints: Multilevel thoracic spine degenerative disc space narrowing and osteophyte formation. Soft tissues: Unremarkable. IMPRESSION: No acute thoracic abnormality.
[2025-02-15 19:49] LABS: Hematocrit 50.4 % (42.0-52.0); Hemoglobin 17.3 g/dL (14.1-18.0); Immature Granulocytes % 0.3 %; Mean Corpuscular HGB Conc 34.3 g/dL (31.8-35.4); Mean Corpuscular Hemoglobin 30.9 pg (27.0-31.2); Mean Corpuscular Volume 90.0 fl (80-94); Nucleated Red Blood Cells % 0 %; Platelet Count 260 K/mm3 (142-424); Red Blood Count 5.60 M/mm3 (4.60-6.20); Red Cell Distribution Width-SD 44.8 fL; White Blood Count 10.3 K/mm3 (4.8-10.8)
[2025-02-15 19:53] LABS: Albumin Level 5.0 g/dl (3.5-5.0); Chloride 104 mmol/L (98-107); Potassium 4.6 mmoL/L (3.5-5.1); Sodium 139 mmol/L (136-145)
[2025-02-15 19:55] LABS: Blood Urea Nitrogen 29 mg/dl (9-20); Creatinine,Serum 1.40 mg/dl (0.66-1.25); Estimated Glomerular Filt Rate 50 ml/min (>60); GFR (African American) 61 ML/MIN (>60)
[2025-02-15 19:56] LABS: Alanine Aminotransferase 26 U/L (12-78); Albumin/Globulin Ratio 1.3 (1.1-1.8); Alkaline Phosphatase 77 U/L (38-126); Anion Gap 14.6 mEq/L (5-15); Aspartate Amino Transferase 31 U/L (17-59); Bilirubin,Total 0.7 mg/dl (0.2-1.3); Calcium 10.2 mg/dl (8.4-10.2); Carbon Dioxide 25 mmol/L (22.0-30.0); Globulin 3.9 g/dL (1.3-3.2); Glucose 117 mg/dl (74-100); Total Protein,Serum 8.9 g/dl (6.3-8.2)
[2025-02-15 20:05] LABS: NT Pro Brain Natriuretic Pep. 553 pg/mL (0-125)
[2025-02-15] MEDS: 0.9 % SODIUM CHLORIDE 50 ML VIAL IV (20:10)
[2025-02-15] MEDS: IOPAMIDOL-370 (76%);100ML BOTTLE 80 ML IV (20:10)
[2025-02-15] MEDS: SODIUM CHLORIDE 0.9% 10ML SYR (RAD ONLY) 10 ML IV (20:10)
--- NOTE | 2025-02-15 22:42 | PC.NURSE ---
repeat trop collected and sent to the lab at this time.
[2025-02-15 23:11] LABS: Troponin I < 0.01 ng/ml (0.00-0.034)
[2025-02-16 00:09] VITALS: BP 138/81; PULSE 67; RESP 16; TEMP 36.7; O2SAT 93
[2025-02-16 00:18] LABS: Troponin I < 0.01 ng/ml (0.00-0.034)
== END 2025-02-16 00:10 | disposition home or self-care (01) ==
PROVIDERS: Nurse Practitioner Family; Emergency Provider Student in an Organized Health Care Education/Training Program; PCP Internal Medicine Adolescent Medicine
DX: R07.9 Chest pain, unspecified (principal); I10 Essential (primary) hypertension; E11.9 Type 2 diabetes mellitus without complications; Z86.79 Personal history of other diseases of the circulatory system; Z95.5 Presence of coronary angioplasty implant and graft
CPT/HCPCS: 71275; 80053; 83880; 84484; 85025; 93005; 99285; Q9967